=== PATIENT | male | born 1965 | race Caucasian/White ===

== ENCOUNTER → 2017-08-14 07:06 | Outpatient (CLI) | payer MEDICARE, SELFPAY ==
--- NOTE | 2017-08-14 07:40 | RAD_ITS ---
STUDY: X-RAY - ESOPHAGUS (BARIUM SWALLOW) WITH FLUOROSCOPY REASON FOR EXAM: Male, 51 years old. Proximal cervical pain following recent cervical fusion. TECHNIQUE: 25 view(s) of the esophagus were obtained following swallowing of barium. FLUOROSCOPY TIME (if supplied): (0:41) minutes/seconds COMPARISON: None. FINDINGS: There is no demonstrated esophageal foreign body. There is no demonstrated stricture or mucosal abnormality. Normal gastroesophageal junction, without a demonstrated hiatal hernia. The patient ingested a 12 mm tablet of barium without any difficulty. Normal visualized aortic arch and descending thoracic aorta. Normal visualized pulmonary parenchyma. Prior fusion of the lower cervical spine. RAD/Esophagus Only IMPRESSION: Normal plain film x-ray examination (barium swallow) of the esophagus. Electronically Signed: Aiden Santiago MD at 9:03 EST Tel [phone], Service support ,
== END ==
PROVIDERS: Family Provider Nurse Practitioner Adult Health; PCP Nurse Practitioner Adult Health; Visit Provider Otolaryngology
DX: R13.10 Dysphagia, unspecified (principal)
CPT/HCPCS: 74220

== ENCOUNTER 2017-10-31 06:04 | Day surgery (SDC) | payer MEDICARE, SELFPAY ==
[2017-10-31] VITALS (8 sets, daily range): BP systolic 97–112; BP diastolic 61–75; PULSE 76–94; RESP 16–20; TEMP 36.9–37.3; O2SAT 97–100; BMI 19.8
--- NOTE | 2017-10-31 07:57 | PCM.HP.STD ---
Problem List (1) Screening for colon cancer Status: Acute History of Present Illness Date of Admission: 10/31/17 The patient is a 52 year old M who presents for screening colonoscopy. Past Medical History Allergies amoxicillin trihydrate [From Augmentin] Allergy (Verified 03/01/16 19:09) Unknown potassium clavulanate [From Augmentin] Allergy (Verified 03/01/16 19:09) Unknown primidone Adverse Reaction (Verified 03/01/16 19:09) Other Home Medications: Ambulatory Orders Medication Instructions Recorded Albuterol Aerosols [Ventolin 2.5 mg INHALATION Q6H PRN PRN 09/18/13 Aerosols] Albuterol IH (ProAir) [Proair Hfa] 2 puff INHALATION Q6H PRN PRN 09/18/13 Baclofen [Lioresal] 10 mg PO TID 09/18/13 Budesonide/Formoterol 160/4.5 2 puff INHALATION BID 09/18/13 [Symbicort 160/4.5 Mcg Inhaler (SP)] Carbamazepine [Carbamazepine ER] 200 mg PO BID 03/01/16 Nitroglycerin [Nitrostat] 0.4 mg SUBLINGUAL PRN PRN 03/01/16 Diclofenac [Voltaren] 75 mg PO BIDCM 10/29/17 Duloxetine Hcl [Cymbalta] 60 mg PO DAILY 10/29/17 Fanapt 6 mg PO BID 10/29/17 Furosemide [Lasix] 20 mg PO DAILY 10/29/17 Potassium Citrate [Potassium 10 meq PO DAILY 10/29/17 Citrate ER] Spironolactone [Aldactone] 25 mg PO DAILY 10/29/17 Umeclidinium [place] [Incruse 1 puff IH DAILY 10/29/17 Ellipta] Zonisamide [Zonegran] 100 mg PO BID 10/29/17 Smoking Status: Current every day smoker Tobacco Use: Cigarettes - *Family History Maternal History Items: No pertinent history Review of Systems Cardiovascular: Reports: - - Patient does have an irregular heartbeat and follows up with Dr. Chaudhry Respiratory: Reports: - - Patient does experience some dyspnea and shortness of breath with 2 flights of stairs Gastrointestinal: Denies: Abdominal Pain, Constipation, Diarrhea, Hematemesis, Nausea, Melena, Vomiting VTE Information - Inpt Only VTE Present on Admission: No VTE Mechan Device Prophylaxis: None VTE Pharm Prophylaxis ordered?: No Reason prophylaxis not ordered:: Treatment Not Indicated Patient Problems: Active and Suspected Problems Screening for colon cancer (Acute) - Physical Exam Lungs: Clear to auscultation Cardiovascular: Regular rate, Regular Rhythm, No murmurs Abdomen: Bowel Sounds Present, Soft, Non Tender, Non-Distended Vital Signs Temp Pulse Resp BP Pulse Ox 99.2 F H 76 16 109/69 98 10/31/17 06:30 10/31/17 06:30 10/31/17 06:30 10/31/17 06:30 10/31/17 06:30 Oxygen Delivery Method Room Air Weight: 111 lb 12.39 oz Body Mass Index (BMI) 19.8 Assessment/Plan Active and Suspected Problems Screening for colon cancer (Acute) My plan is to perform a screening colonoscopy on the patient. Risk benefits have been reviewed with the patient at the time of the procedure and he agrees to proceed.
--- NOTE | 2017-10-31 08:00 | PCM.OPRPT ---
Problem List (1) Screening for colon cancer Status: Acute Report of Operation Date of Procedure: 10/31/17 Pre-Operative Diagnosis: z12.11 screening colonoscopy Post-Operative Diagnosis: Colonoscopy to splenic flexure Type of Anesthesia:: MAC Anesthesiologist: Aftab Silva Description of Procedure: Patient was brought into the endoscopy suite. Placed in the left lateral decubitus position. Was given graded anesthesia. Scope was inserted into the rectum and directed through the sigmoid colon, descending colon, to the splenic flexure. I was unable to get past the splenic fracture. I gave him 1 amp of glucagon I tried numerous position changes nevertheless I was unable to traverse the splenic flexure and into the transverse colon. As it appeared that I was bruising the splenic flexure I aborted the rest of the procedure. As I came out I got a good look at the descending colon and sigmoid colon and the rectum. No polyps are identified the mucosal all look normal. The scope was withdrawn digital rectal exam showed no masses within the anus and a smooth small prostate. Going to obtain a barium enema on him. - Admit VTE Documentation VTE Present on Admission: No VTE Mechan Device Prophylaxis: None VTE Pharm Prophylaxis ordered?: No Reason prophylaxis not ordered:: Treatment Not Indicated
--- NOTE | 2017-10-31 11:00 | RAD_ITS ---
STUDY: BARIUM ENEMA. REASON FOR EXAM: Male, 52 years old. Incomplete colonoscopy. FLUOROSCOPY TIME (if supplied): (0:40) minutes/seconds TECHNIQUE: A marketing content manager film was obtained. Following this, barium was introduced retrograde through the rectum. The entire colon was opacified. COMPARISON: None. FINDINGS: A marketing content manager film was obtained. No radiographic abnormality is seen. The entire colon was opacified. No mass lesion is seen. There is no evidence of obstruction. RAD/Barium Enema No Air Cont IMPRESSION: Unremarkable barium enema. Electronically Signed: Aiden Santiago MD at 12:51 EDT Tel [phone], Service support ,
== END 2017-10-31 10:41 | disposition home or self-care (01) ==
LOC: EN 06:05 → AC 06:05 → ACINP 11:14
PROVIDERS: Family Provider Nurse Practitioner Adult Health; PCP Nurse Practitioner Adult Health; Visit Provider Surgery
PROC: 0DJD8ZZ Inspection of Lower Intestinal Tract, Via Natural or Artificial Opening Endoscopic (ICD-10-PCS; CPT 45378; principal; 2017-10-31 07:25)
DX: Z12.11 Encounter for screening for malignant neoplasm of colon (principal); K63.89 Other specified diseases of intestine; I49.9 Cardiac arrhythmia, unspecified; J43.9 Emphysema, unspecified; F32.9 Major depressive disorder, single episode, unspecified; F60.3 Borderline personality disorder; F17.210 Nicotine dependence, cigarettes, uncomplicated; F12.90 Cannabis use, unspecified, uncomplicated; Z79.899 Other long term (current) drug therapy
CPT/HCPCS: 45330; 74270; J7120; J1610

== ENCOUNTER 2018-12-02 06:14 | Day surgery (SDC) | payer MEDICARE, SELFPAY ==
[2018-12-02 06:36] VITALS: BP 112/83; PULSE 83; RESP 18; TEMP 37; O2SAT 95; BMI 18.3
--- NOTE | 2018-12-02 08:00 | RAD_ITS ---
PROCEDURE: Right C4-C7 cervical block. DATE OF EXAMINATION: December 02, 2018. INDICATION: Male, 53 years old. Chronic neck pain. FLUOROSCOPY TIME (if supplied): (0:18) minutes/seconds. 4 images were obtained. Intraoperative fluoroscopic services provided for right C4-C7 cervical block. RAD/Cerv Spine 4 or 5 Views IMPRESSION: Intraoperative fluoroscopic services provided for right C4-C7 cervical block. Electronically Signed: Aiden Santiago, at 15:17 EDT , Service support ,
[2018-12-02] MEDS: MethylPREDNISolone Acetate 80 MG/ML Vial (08:04)
[2018-12-02] MEDS: Bupivacaine 0.25% 30 ML Vial (08:04)
[2018-12-02 08:25] VITALS: BP 105/72; BP 112/83; PULSE 83; RESP 18; TEMP 36.6; O2SAT 95
--- NOTE | 2018-12-02 12:39 | PCM.OPRPT ---
Problem List (1) Degeneration of cervical disc without myelopathy Status: Chronic (2) Spondylosis of cervical region without myelopathy or radiculopathy Status: Chronic Report of Operation Date of Procedure: 12/02/18 Pre-Operative Diagnosis: Cervical spondylosis, cervical degenerative disc disease, cervical facet arthropathy Post-Operative Diagnosis: Cervical spondylosis, cervical degenerative disc disease, cervical facet arthropathy Surgery/Procedure Performed:: Right-sided cervical facet steroid injection C4, C5, C6, C7 Description of Surgical Findings:: PROCEDURE: Right-sided cervical facet steroid injection C4, C5, C6, C7 PREOPERATIVE DIAGNOSES: Cervical spondylosis, cervical degenerative disc disease, and cervical facet arthropathy POSTOPERATIVE DIAGNOSES: Cervical spondylosis, cervical degenerative disc disease, and cervical facet arthropathy ANESTHESIA: Local COMPLICATIONS: None BLOOD LOSS: Minimal PROCEDURE IN DETAIL: History and physical today was reviewed. Risks and benefits of the procedure were explained. The patient understood, agreed to our procedure, and informed consent was obtained. IV inserted per routine protocol. The patient was taken to the operating room, placed in a prone position with a pillow positioned underneath the chest. The neck area was prepped and draped in a sterile fashion using iodine x3. Under fluoroscopy guidance, on AP view, C4 through C7 vertebral bodies were visualized. Skin and subcutaneous tissues were anesthetized with approximately 5 mL of 1% lidocaine using a 25-gauge regular needle. Under direct visualization with fluoroscopy at approximately 15-degree angle, starting on the right C4, ending on the right C7, passing through the C5-C6 using a 25-gauge 3 and half inch spinal needle the needle passed through the skin tip of the needle was maneuvering directed towards the epiphyseal junction of each corresponding vertebra once the tip of the knee is at the vicinity of the medial branch and contact with the bone the needle pulled approximately 2 mm of the bone after negative aspiration for blood or CSF and confirmation AP oblique as well as lateral view a total of 4 cc of preservative-free 0.25% Marcaine with 80 mg of Depo-Medrol were injected in divided doses between those 4 levels. The needles were then removed intact. The patient experienced no signs or symptoms of intrathecal, intravascular injection. The patient experienced no paraesthesia. The procedure was completed without any apparent difficulty, any complication. The patient appeared to tolerate well. Sensory as well as motor exam was unchanged from prior to procedure. ASSESSMENT AND PLAN: This is a 53-year-old Male with cervical spondylosis, cervical degenerative disc disease, and cervical facet arthropathy, status post right-sided cervical facet steroid injection C4-C7. The patient will continue his current medications. The patient will follow up in approximately 2 weeks fo reevaluation.
== END 2018-12-02 08:32 | disposition home or self-care (01) ==
LOC: SDC 06:16 → AC 06:17
PROVIDERS: Family Provider Nurse Practitioner Adult Health; PCP Nurse Practitioner Adult Health; Referring Provider Anesthesiology Pain Medicine; Visit Provider Anesthesiology Pain Medicine
PROC: 3E0U3BZ Introduction of Anesthetic Agent into Joints, Percutaneous Approach (ICD-10-PCS; CPT 64490; principal; 2018-12-02 07:55)
DX: M47.812 Spondylosis without myelopathy or radiculopathy, cervical region (principal); M50.30 Other cervical disc degeneration, unspecified cervical region; M46.82 Other specified inflammatory spondylopathies, cervical region; J43.9 Emphysema, unspecified; F17.200 Nicotine dependence, unspecified, uncomplicated; Z79.891 Long term (current) use of opiate analgesic; Z79.899 Other long term (current) drug therapy
CPT/HCPCS: 64491; 64492; 64490; 72050; 72110; J7120

== ENCOUNTER → 2018-12-23 09:45 | Outpatient (CLI) | payer MEDICARE, SELFPAY ==
[2018-12-06 08:52] VITALS: BMI 19.1
--- NOTE | 2018-12-23 15:26 | PFTCOMP ---
COMPLETE PULMONARY FUNCTION TEST INTERPRETATION Brief HPI: Patient is a 53 year old male, currently under the care of myself, who presents to [facility] for complete pulmonary function tests secondary to diagnosis of dyspnea. Respiratory therapist reports good effort and reproducible results. Interpretation: Forced expiration spirometry shows a very severe large airways obstructive ventilatory defect with an FEV1 of 37% predicted. There is a significant bronchodilator response in FVC by strict ATS criteria. Spirograms are of good quality and plateau slowly, indicating slowly emptying areas of the lungs. The respiratory flow volume loop shows decreased expiratory flow rates at all lung volumes consistent with airway obstruction. Lung volumes by body plethysmography show an elevated total lung capacity at 7.91 L, 142% predicted. FRC and RV are elevated out of proportion. Lung volume measurements are consistent with hyperinflation and air-trapping. Diffusion capacity by carbon monoxide is decreased at 39% predicted. The airway resistance is elevated. No previous pulmonary function tests were available for review. Impression: Partially reversible very severe large airways obstructive ventilatory defect resulting in air trapping with hyperinflation and a symmetric reduction diffusing capacity, and a pattern consistent with advanced COPD.
== END ==
PROVIDERS: Family Provider Internal Medicine; PCP Internal Medicine; Referring Provider Internal Medicine Critical Care Medicine; Visit Provider Internal Medicine Critical Care Medicine
DX: Z72.0 Tobacco use (principal)
CPT/HCPCS: 94060; 94726; 94729

== ENCOUNTER → 2019-01-29 08:39 | Outpatient (CLI) | payer MEDICARE, SELFPAY ==
[2018-12-06 08:52] VITALS: BMI 19.1
[2019-01-06 10:19] VITALS: BMI 20.7
[2019-01-29 09:51] VITALS: PULSE 100; PULSE 74; PULSE 78; PULSE 81; PULSE 88; PULSE 89; PULSE 92; PULSE 98; O2SAT 92; O2SAT 93; O2SAT 94; O2SAT 98
--- NOTE | 2019-01-29 13:28 | WT_ITS ---
PSN 6 Minute Walk Test - 6 Minute Walk Test 6 Minute Walk Test: 6 Minute Walk Test PSN:6-Minute Walk Test Start: 01/29/19 09:51 Freq: Status: Active Protocol: [id number].[id number] Document 01/29/19 09:51 [facility] (Rec: 01/29/19 09:55 [facility] [id number]) 6 Minute Walk Test Date Performed 01/29/19 Time Performed 09:15 Height 5 ft 5 in Weight: 102 lb Weight in Pounds 102.[address]: Willy Barragan Assistive device used: None Pre-test Oxygen Delivery Method Room Air Pulse Ox (%) 92 Pulse Rate (60-100 beats/min) 74 Dyspnea Jacqueline Scale (0-10) 4 Number of Rests Taken 0 Reported Symptoms Increased Work of Breathing 1st minute Oxygen Delivery Method Room Air Pulse Ox (%) 94 Pulse Rate (60-100 beats/min) 81 Dyspnea Jacqueline Scale (0-10) 4 Number of Rests Taken 0 Reported Symptoms Increased Work of Breathing 2nd minute Oxygen Delivery Method Room Air Pulse Ox (%) 93 Pulse Rate (60-100 beats/min) 89 Dyspnea Jacqueline Scale (0-10) 5 Number of Rests Taken 0 Reported Symptoms Increased Work of Breathing 3rd minute Oxygen Delivery Method Room Air Pulse Ox (%) 94 Pulse Rate (60-100 beats/min) 92 Dyspnea Jacqueline Scale (0-10) 5 Number of Rests Taken 0 Reported Symptoms Increased Work of Breathing 4th minute Oxygen Delivery Method Room Air Pulse Ox (%) 98 Pulse Rate (60-100 beats/min) 100 Dyspnea Jacqueline Scale (0-10) 5 Number of Rests Taken 0 Reported Symptoms Increased Work of Breathing 5th minute Oxygen Delivery Method Room Air Pulse Ox (%) 93 Pulse Rate (60-100 beats/min) 98 Dyspnea Jacqueline Scale (0-10) 5 Number of Rests Taken 0 Reported Symptoms Increased Work of Breathing 6th minute Oxygen Delivery Method Room Air Pulse Ox (%) 94 Pulse Rate (60-100 beats/min) 88 Dyspnea Jacqueline Scale (0-10) 6 Number of Rests Taken 0 Reported Symptoms Increased Work of Breathing Post-test Oxygen Delivery Method Room Air Pulse Ox (%) 94 Pulse Rate (60-100 beats/min) 78 Dyspnea Jacqueline Scale (0-10) 4 Number of Rests Taken 0 Reported Symptoms Increased Work of Breathing Full Laps Walked 12 Partial Lap, Number of Tiles Walked 14 Total Distance Walked (ft) 722 - Interpretation Interpretation: The patient ambulated 722 feet over the course of 6 minutes beginning on room air without assistive devices or breaks. Pretesting oxygen saturation was noted to be 92% on room air. With ambulation, the sarath oxygen saturation was 93%. There was no significant exertional oxygen desaturation. - Recommendations Recommendations: There is no indication for the use of supplemental oxygen at this time.
== END ==
PROVIDERS: Family Provider Internal Medicine; PCP Internal Medicine; Referring Provider Internal Medicine Critical Care Medicine; Visit Provider Internal Medicine Critical Care Medicine
DX: J44.9 Chronic obstructive pulmonary disease, unspecified (principal)
CPT/HCPCS: 94618

== ENCOUNTER → 2019-02-04 11:29 | Outpatient (CLI) | payer MEDICARE, SELFPAY ==
[2019-02-04 10:56] VITALS: BMI 20.7
[2019-02-04 12:21] LABS: Hematocrit 43.3 % (40-54); Hemoglobin 14.7 g/dL (13.0-16.5); Mean Corp Hgb Conc 33.9 g/dL (32-36); Mean Corpuscular Hgb 32.4 pg (27.0-32.0); Mean Corpuscular Volume 95.4 fL (80-94); Mean Platelet Vol. 10.1 fl (6.2-12.0); Platelet Count 261 K/mm3 (150-450); RBC Distribution Width CV 13.3 % (11.6-14.6); RBC Distribution Width SD 46.8 fl (35.1-43.9); Red Blood Count 4.54 M/mm3 (4.6-6.2); White Blood Count 5.6 K/mm3 (4.4-11.0)
[2019-02-04 12:50] LABS: ALB/GLOB Ratio 1.1 RATIO (0.9-2.4); AST(SGOT) 14 U/L (15-37); Alanine Aminotransfer ALT/SGPT 22 U/L (16-61); Albumin, Serum 3.9 g/dL (3.2-5.0); Alkaline Phosphatase 90 U/L (45-117); Anion Gap 5 (5-15); BUN 9 mg/dL (7-18); BUN/Creat Ratio 9.5 RATIO (10-20); Calcium,Total 8.6 mg/dL (8.5-10.1); Chloride 107 mmol/L (98-107); Cholesterol 152 mg/dL (200); Creatinine, Serum 0.95 mg/dL (0.70-1.30); EST Glomerular Filtration Rate 89 mL/min (>60); Est Glom Filt Rate - Afr Amer 107 mL/min (>60); Globulin 3.5 g/dL (2.2-4.2); Glucose 91 mg/dL (74-106); High Density Lipoprotein 73 mg/dL; Potassium 3.7 mmol/L (3.5-5.1); Protein, Total 7.4 g/dL (6.4-8.2); Sodium Level 137 mmol/L (136-145); Thyroid Stim Hormone (TSH) 0.99 uIU/mL (0.358-3.74); Triglycerides 61 mg/dL; Very Low Density Lipoprotein 12 mg/dL (5-40)
== END ==
PROVIDERS: Nurse Practitioner Family; Family Provider Internal Medicine; PCP Internal Medicine; Visit Provider Internal Medicine
DX: J44.9 Chronic obstructive pulmonary disease, unspecified (principal); F32.9 Major depressive disorder, single episode, unspecified; F41.9 Anxiety disorder, unspecified; E78.5 Hyperlipidemia, unspecified; Z13.220 Encounter for screening for lipoid disorders
CPT/HCPCS: 36415; 80053; 80061; 84443; 85027

== ENCOUNTER → 2019-04-04 08:02 | Outpatient (CLI) | payer MEDICARE, SELFPAY ==
[2019-03-13 10:18] VITALS: BMI 17.9
--- NOTE | 2019-04-04 08:04 | CT_ITS ---
STUDY: CT CHEST WITHOUT CONTRAST REASON FOR EXAM: Male, 53 years old. Weight loss and shortness of breath. Emphysema. History of smoking. RADIATION DOSAGE (If Supplied By Facility): CTDIvol = ( 6.81 ) mGy, DLP = ( 277.57 ) mGycm TECHNIQUE: Transaxial imaging was performed without the administration of intravenous contrast material. Individualized dose optimization techniques were used for this CT. COMPARISON: May 04, 2017 FINDINGS: Diffuse emphysematous change is identified appearing similar to the prior study. There is mild bibasilar compressive atelectasis. There is no demonstrated pleural abnormality. Normal heart and pericardium. Normal mediastinum. Normal hilar regions. Normal unenhanced pulmonary arteries. Normal aorta arch and descending thoracic aorta. Normal osseous structures. There is no demonstrated abnormality of the visualized upper abdomen. CT/Chest without Contrast IMPRESSION: Diffuse emphysematous change and mild bibasilar compressive atelectasis. No significant interval changes. Electronically Signed: Lázaro Barrera, at 9:06 EDT Tel , Service support ,
== END ==
PROVIDERS: Family Provider Internal Medicine; PCP Internal Medicine; Referring Provider Internal Medicine Critical Care Medicine; Visit Provider Internal Medicine Critical Care Medicine
DX: J43.2 Centrilobular emphysema (principal); I27.21 Secondary pulmonary arterial hypertension; R63.4 Abnormal weight loss; R06.02 Shortness of breath; Z87.891 Personal history of nicotine dependence
CPT/HCPCS: 71250

== ENCOUNTER → 2019-05-26 11:03 | Outpatient (CLI) | payer MEDICARE, SELFPAY ==
[2019-03-13 10:18] VITALS: BMI 17.9
--- NOTE | 2019-05-26 11:34 | CT_ITS ---
STUDY: CT CERVICAL SPINE WITHOUT CONTRAST REASON FOR EXAM: Male, 53 years old. Spinal stenosis, bilateral arm numbness/tingling, prior neck surgery x 2.. RADIATION DOSAGE (If Supplied By Facility): CTDIvol = ( 14.27 ) mGy, DLP = ( 271.68 ) mGycm TECHNIQUE: High resolution transaxial imaging was performed without contrast material. Sagittal and coronal images were reconstructed. Individualized dose optimization techniques were used for this CT. COMPARISON: 05/26/2019 MRI FINDINGS: Normal craniovertebral junction. Normal anterior atlantoaxial articulation. Normal odontoid process. There is straightening of the normal cervical lordosis. C2-3: Normal endplates. Normal disc height and morphology. Normal central canal and intervertebral neuroforamina. C3-4: Normal endplates. Normal disc height and morphology. Normal central canal and intervertebral neuroforamina. C4-5: There is minimal disc space narrowing and endplate spondylosis. There is no significant disc herniation, central canal or foraminal stenosis. C5-6: There is anterior fusion. There is disc spacer with subsidence without demonstrated osseous fusion. There is severe disc space narrowing and endplate spondylosis. There is mild disc osteophyte complex without significant central canal stenosis. Uncovertebral arthropathy with moderate right and moderate left foraminal stenosis. C6-7: There is anterior fusion. There is disc spacer with subsidence. There is left lateral interbody osseous fusion. There is severe disc space narrowing and endplate spondylosis. There is minimal disc osteophyte complex without significant central canal stenosis. Uncovertebral arthropathy with mild right and mild left foraminal stenosis. C7-T1: There is mild disc space narrowing and endplate spondylosis. There is no significant disc herniation, central canal or foraminal stenosis. Normal visualized soft tissue structures. CT/Spine Cervical without Contras IMPRESSION: C5/C6: Moderate right and moderate left foraminal stenosis. C5-C7 anterior fusion, disc spacers with subsidence. Electronically Signed: David Haines MD at 9:09 EST Tel , Service support ,
--- NOTE | 2019-05-26 11:48 | MRI_ITS ---
STUDY: MRI CERVICAL SPINE WITHOUT CONTRAST REASON FOR EXAM: Male, 53 years old. c/o ongoing neck pain, slipped vertebrae superior to sx site, h/o prior fusion 3 yrs ago. TECHNIQUE: Standardized fat and water weighted pulse sequences were obtained in the sagittal and axial planes. COMPARISON: 05/26/2019 CT FINDINGS: Normal foramen magnum and brainstem-cervical cord junction. Normal craniovertebral junction. Normal anterior atlantoaxial articulation. Normal odontoid process. There is straightening of the normal cervical lordosis. C2-3: Normal endplates. Normal disc height, signal and morphology. Normal central canal and intervertebral neural foramina. C3-4: There is minimal disc space narrowing and endplate spondylosis. There is no significant disc herniation, central canal or foraminal stenosis. C4-5: There is minimal disc space narrowing and endplate spondylosis. There is no significant disc herniation, central canal or foraminal stenosis. C5-6: There is anterior fusion. Mild disc osteophyte complex with mild central canal stenosis. Uncovertebral arthropathy with moderate right and moderate left foraminal stenosis C6-7: There is anterior fusion. Minimal disc osteophyte complex without significant central canal stenosis. Uncovertebral arthropathy with mild right and mild left foraminal stenosis C7-T1: There is minimal disc space narrowing and endplate spondylosis. There is no significant disc herniation, central canal or foraminal stenosis. Normal cervical cord. Normal visualized soft tissue structures. MRI/Spine Cervical (Routine) IMPRESSION: C5/C6: Moderate right and moderate left foraminal stenosis. C5-C7: Anterior fusion. Electronically Signed: David Haines MD at 9:10 EST Tel , Service support ,
== END ==
PROVIDERS: Family Provider Internal Medicine; PCP Internal Medicine; Referring Provider Neurological Surgery; Visit Provider Neurological Surgery
DX: M48.02 Spinal stenosis, cervical region (principal); M54.12 Radiculopathy, cervical region
CPT/HCPCS: 72125; 72141

== ENCOUNTER 2019-06-16 16:00 | Outpatient (RCR) | payer MEDICARE, SELFPAY ==
[2019-03-13 10:18] VITALS: BMI 17.9
--- NOTE | 2019-06-03 10:57 | HP.PTEVAL ---
Patient's Visit Information KEENA GIFFORD is a 53 year old M referred to Physical Therapy by Gisell Lizarraga MD with a diagnosis of CERVICALALGIA,RADICULOPATHY OF CERVICAL ,SPINAL STENOSIS OF CERVICAL. Date of Evaluation: 06/03/19 Physical Therapist: James Poole, PT, Cert MDT, OCS - Visit Plan Frequency: 2x /Week Duration: 4 Weeks Plan: PT INTERVENTIONS MODALTIES ,CERVICAL /POSTURAL EX'S - Subjective Findings: This 53 y/o male presnets to physical therapy cervicval pain. Patient underwent s/p cervical fusion 3 years ago. Patient has increase pain in cervical pain and and radicular symptoms RUE> LUE.. Seen Neurogen did and MRI foraminal stenosis /CATSCAN,plan for EMG.Patient has had injections which hasnt helped. Patient dizziness/CHOI.Aggravating factors turning cervical spine ,looking up/down,lifting with arms,sitting. Patient pain affects sleeping. Allevating factors none. Patient on Robaxn. Patient affects sleeping. Patient c/o parthesia/tingling in hands. Patient pain affects ADL's and housework taskls. Patient symptoms affects QOL. SOCIAL: . VOCATION:disablity - Pain Bilateral Neck Pain Intensity (Out of 10): 10 Pain Intensity Range: 10 Bilateral Shoulder Pain Intensity (Out of 10): 8 Pain Intensity Range: 10 - Objective POSTURE: mild foward posture. NEURO: c/o parathesia/tingling arms,reflexes C5-6-7 1/2. PALPATION: TENDER UT/LEVATORS. AROM: BUE WFL. MMT: 4/5 ,EXCEPT SHOULDERS 4-/5. CERVICAL ROM: flexion min loss,extension mod loss,lateral flexion/rotation mod/severe loss - Special Tests C/S Radiculapathy - Left Upper limb tension test: Negative C/S Radiculapathy - Right Upper limb tension test: Negative Sharp Ata: Negative Vertebral Artery Test: Negative Alar Ligament Test: Negative - Goals Goal 1:: Patient to be Independant with HEP Goal Time Frame: 4-6 Weeks Goal 2:: Patient decrease cervical pain by 40% or > to improve function and QOL. Goal Time Frame: 4-6 Weeks Goal 3:: Patient to improve posture for ADL'S Goal Time Frame: 4-6 Weeks Goal 4:: Patient to improve cervical ROM for function of recovery. Goal Time Frame: 4-6 Weeks Goal 5:: Patient to improve neck owestry score by 5 points or > to improve QOL. Goal Time Frame: 4-6 Weeks - Rehabilitation Potential Physical Therapy Diagnosis: Patient has cervical pain with h/o cervical fusion with poor ROM,strength impairs ADL's and housework tasks thus benifit from skilled PT Rehabilitation Potential: Good - Anticipated Interventions Patient/Client Instruction: Educate patient on: Condition, Plan of Care For the Purpose of:: To decrease pain, To increase ROM, To improve muscle performance and motor function, To improve ability to perform ADL's, To increase tolerance to activity/condition/position, To improve ability of physical actions for home/community/work/leisure, To improve health of tissue, To decrease soft tissue restriction, To increase flexibility/ROM, To improve ability to perform tasks related to life management Therapeutic Exercise to Include: Strength training, Body mechanics, Postural training, Flexibilty training For the Purpose of:: To decrease pain, To increase ROM, To improve muscle performance and motor function, To improve ability to perform ADL's, To improve performance and independence with ADL's, To improve health of tissue, To decrease soft tissue restriction, To increase flexibility/ROM, To improve ability to perform tasks related to life management TENS: Yes IF ES: Yes Cryotherapy (ice pack, ice massage): Yes Thermo therapy (hot pack): Yes Ultrasound (thermal/non thermal): Yes For the Purpose of:: To decrease pain, To increase ROM, To improve ability to perform ADL's, To increase tolerance to activity/condition/position, To improve health of tissue, To decrease soft tissue restriction Thank you for the opportunity to evaluate your patient. For Medicare and Medicare HMO plans, please review the plan of care and approve it. It will need to be FAXED BACK to us at [phone] for Medicare purposes. For Medicare only, by signing this I certify the plan of care. Please let me know if there are questions or concerns regarding this plan of care. Physician Signature: Date:
--- NOTE | 2019-09-05 09:37 | HP.PT.NRP ---
KEENA GIFFORD was seen in my office for initial evaluation on 06/03/19. The following Plan of Care was established for this patient: Initial Frequency: 2x /Week Initial Duration: 4 Weeks Patient/Client Instruction: Educate patient on: Condition, Plan of Care For the Purpose of:: To decrease pain, To increase ROM, To improve muscle performance and motor function, To improve ability to perform ADL's, To increase tolerance to activity/condition/position, To improve ability of physical actions for home/community/work/leisure, To improve health of tissue, To decrease soft tissue restriction, To increase flexibility/ROM, To improve ability to perform tasks related to life management Therapeutic Exercise to Include: Strength training, Body mechanics, Postural training, Flexibilty training For the Purpose of:: To decrease pain, To increase ROM, To improve muscle performance and motor function, To improve ability to perform ADL's, To improve performance and independence with ADL's, To improve health of tissue, To decrease soft tissue restriction, To increase flexibility/ROM, To improve ability to perform tasks related to life management TENS: Yes IF ES: Yes Cryotherapy (ice pack, ice massage): Yes Thermo therapy (hot pack): Yes Ultrasound (thermal/non thermal): Yes For the Purpose of:: To decrease pain, To increase ROM, To improve ability to perform ADL's, To increase tolerance to activity/condition/position, To improve health of tissue, To decrease soft tissue restriction This patient was last seen in our office 06/16/19. Pertinent comments regarding their Physical therapy will appear below: Patient seen for PT for cervical pain focusing on modalties. At this point I will be discontinuing this patient from physical therapy. I would be happy to see this patient again in the future if found appropriate by the physician. Thank you! James Poole, PT, Cert MDT, OCS
== END 2019-06-16 19:00 | disposition home or self-care (01) ==
LOC: PT 16:00
PROVIDERS: Family Provider Internal Medicine; PCP Internal Medicine; Referring Provider Neurological Surgery; Visit Provider Neurological Surgery
DX: M54.2 Cervicalgia (principal); M48.02 Spinal stenosis, cervical region
CPT/HCPCS: 97014; 97035; 97162; G0283

== ENCOUNTER → 2019-06-23 10:40 | Outpatient (CLI) | payer MEDICARE, SELFPAY ==
[2019-06-09 07:53] VITALS: BMI 18.3
--- NOTE | 2019-06-23 15:01 | STRESSREP ---
Stress Test Report Pharmacologic myocardial perfusion stress test. 53-year-old man with a history of chest pain. Medications: Ventolin, pro-air, Tegretol. Resting EKG demonstrates normal sinus rhythm with a rate of 81 bpm normal intervals are noted resting blood pressures 180/60 mmHg. 0.4 mg of regadenoson was infused per usual protocol followed by rapid venous saline flush injection continuous EKG monitoring was performed. The maximum heart rate attained was 112 bpm which was 66% of maximum predicted heart rate the maximum workload was 1 metabolic equivalent. At rest there were no ST or T wave changes noted suggest abnormal flow reserve at peak infusion nonspecific ST-T wave changes were noted. No clinical angina was noted. Myocardial perfusion protocol. 11.1 mCi of technetium 99m sestamibi was injected at rest. 0.4 mg of regadenoson was infused per usual protocol peak infusion 33.3 mCi of technetium 99m sestamibi was injected stress images were obtained stress and rest images were reconstructed and compared in the short axis vertical long horizontal long axis. Gated images were also obtained Perfusion SPECT analysis: Review of the stress images demonstrate normal uptake of tracer noted in all areas of myocardium the resting images similar demonstrate normal uptake of tracer noted in all areas of myocardium. No reversibility is noted just ischemia no previous infarct is noted per Gated SPECT analysis: The gated ejection fraction is noted to be 72%. Conclusion: Normal pharmacologic myocardial perfusion stress test. Preserved ejection fraction.
== END ==
PROVIDERS: Family Provider Internal Medicine; PCP Internal Medicine; Referring Provider Nurse Practitioner Family; Visit Provider Nurse Practitioner Family
DX: R07.9 Chest pain, unspecified (principal)
CPT/HCPCS: 78452; 93017; A9500; A4216; J2785

== ENCOUNTER → 2019-07-16 07:46 | Outpatient (CLI) | payer MEDICARE, MEDICAID, SELFPAY ==
[2019-03-13 10:18] VITALS: BMI 17.9
[2019-06-09 07:53] VITALS: BMI 18.3
--- NOTE | 2019-07-16 09:28 | RAD_ITS ---
STUDY: X-RAY - CERVICAL SPINE REASON FOR EXAM: Male, 53 years old. NECK PAIN. PLATE PLACED IN NECK IN 2017. TECHNIQUE: 4 view(s) of the cervical spine were obtained. COMPARISON: None FINDINGS: Normal anterior atlantoaxial articulation. Normal odontoid process. There is straightening of the normal cervical lordosis. The patient is status post anterior fusion at the C5-C6 and C6-C7 levels. Disc space narrowing at the C4-C5, C5-C6 and C6-C7 levels. Normal visualized intervertebral neuroforamina. The soft tissue structures are unremarkable. RAD/Cerv Spine 4 or 5 Views IMPRESSION: Status post anterior fusion at the C5-C6 and C6-C7 levels with disc space narrowing. Electronically Signed: Aiden Santiago, at 15:54 EST , Service support ,
--- NOTE | 2019-07-16 13:21 | NEURO ---
NCS and/or EMG Patient Report Ordering Doctor: Gisell Lizarraga DATE OF SERVICE: 07/16/19 Ivan Teixeira is a 53 year old male who presents for electrodiagnostic testing of the upper limbs. He reports numbness and tingling in both hands. Electrodiagnostic findings: The left median motor nerve demonstrates prolonged distal latency with normal amplitude and conduction velocity. Normal right median motor response. Normal ulnar motor response bilaterally. Normal median ulnar F waves. Prolonged median sensory latency at the wrist bilaterally. On needle EMG, all muscles tested in the upper limb showed no evidence of denervation with normal motor unit action potentials. Electrodiagnostic assessment: This is an abnormal study in the upper limbs 1. Electrodiagnostic findings demonstrate bilateral median mononeuropathy. This is consistent with a moderate left carpal tunnel syndrome and a mild right carpal tunnel syndrome. 2. No electrodiagnostic evidence for cervical radiculopathy. If there are any further questions, please not hesitate to contact me.
== END ==
PROVIDERS: Family Provider Internal Medicine; PCP Internal Medicine; Referring Provider Neurological Surgery; Visit Provider Neurological Surgery
DX: M54.2 Cervicalgia (principal); M54.12 Radiculopathy, cervical region
CPT/HCPCS: 72050; 95886; 95912

== ENCOUNTER → 2019-09-09 09:33 | Outpatient (CLI) | payer MEDICARE, MEDICAID, SELFPAY ==
[2019-06-09 07:53] VITALS: BMI 18.3
--- NOTE | 2019-09-10 08:07 | PFT ---
INTRODUCTION: The patient is a 53-year-old male that presents for pulmonary function studies secondary to a diagnosis of COPD. Respiratory therapy reports good patient effort. Bronchodilators were used during testing. INTERPRETATION: Forced expiration spirometry demonstrates the presence of a very severe large airways obstructive ventilatory defect. There was a significant response to aerosolized bronchodilators noted based upon change in FVC. Spirograms are of fair quality and do not plateau indicating slow emptying of the lungs. Body plethysmography was performed and reveals an elevated TLC and RV, indicative of underlying hyperinflation and air trapping. Diffusing capacity by single breath CO is significantly reduced at 39% of predicted. When compared to previous pulmonary function studies from December 2018, there has been a 17% reduction in FEV1. IMPRESSION: Partially reversible very severe large airways obstructive ventilatory defect with associated hyperinflation, air trapping and symmetric reduction in diffusing capacity. There has been worsening in the patient's FEV1 since 2018, as noted above.
== END ==
PROVIDERS: Family Provider Internal Medicine; PCP Internal Medicine; Referring Provider Nurse Practitioner Acute Care; Visit Provider Nurse Practitioner Acute Care
DX: J44.9 Chronic obstructive pulmonary disease, unspecified (principal)
CPT/HCPCS: 94060; 94726; 94729

== ENCOUNTER → 2019-10-17 12:25 | Outpatient (CLI) | payer MEDICARE, MEDICAID, SELFPAY ==
[2019-06-09 07:53] VITALS: BMI 18.3
[2019-09-23 06:16] VITALS: BMI 18.3
[2019-10-17 13:05] VITALS: PULSE 100; PULSE 106; PULSE 109; PULSE 94; PULSE 95; PULSE 98; O2SAT 86; O2SAT 93; O2SAT 94; O2SAT 95; O2SAT 96; O2SAT 97
--- NOTE | 2019-10-17 13:09 | CPS ---
PATIENT BEGAN TESTING ON ROOM AIR. 1 REST BREAK TAKEN D/T INCREASED SOB AND DECREASED SPO2 TO 86%RA SO OXYGEN APPLIED AT 2LPM. REMAINDER OF WALK TEST DONE ON 2LPM. CONTACTED VI[facility] AND [facility]. PT LEFT ON ROOM AIR AND AWARE [facility] WILL BE CONTACTING HIM FOR SETUP. FAXED RESULTS TO [facility]OTH [facility].
--- NOTE | 2019-10-17 16:09 | PCM.PSN.6M ---
PSN 6 Minute Walk Test - 6 Minute Walk Test 6 Minute Walk Test: 6 Minute Walk Test PSN:6-Minute Walk Test Start: 10/17/19 13:05 Freq: Status: Active Protocol: RESP.6MINW Document 10/17/19 13:05 [facility] (Rec: 10/17/19 13:12 [facility] [id number]) 6 Minute Walk Test Date Performed 10/17/19 Time Performed 12:30 Height 5 ft 5 in Weight: 49.895 kg Weight in Pounds 110.[address]: Edna Umanzor Assistive device used: None Pre-test Oxygen Delivery Method Room Air Pulse Ox (%) 96 Pulse Rate (60-100 beats/min) 94 Dyspnea Jacqueline Scale (0-10) 3 Reported Symptoms Increased Work of Breathing 1st minute Oxygen Delivery Method Room Air Pulse Ox (%) 95 Pulse Rate (60-100 beats/min) 106 H Dyspnea Jacqueline Scale (0-10) 4 Number of Rests Taken 0 Reported Symptoms Increased Work of Breathing 2nd minute Oxygen Delivery Method Room Air Pulse Ox (%) 86 Pulse Rate (60-100 beats/min) 109 H Dyspnea Jacqueline Scale (0-10) 6 Number of Rests Taken 1 Reported Symptoms Increased Work of Breathing 3rd minute Oxygen Flow Rate (L/min) (L/min) 2 Oxygen Delivery Method Nasal Cannula Pulse Ox (%) 95 Pulse Rate (60-100 beats/min) 100 Dyspnea Jacqueline Scale (0-10) 3 Number of Rests Taken 0 Reported Symptoms Increased Work of Breathing 4th minute Oxygen Flow Rate (L/min) (L/min) 2 Oxygen Delivery Method Nasal Cannula Pulse Ox (%) 94 Pulse Rate (60-100 beats/min) 95 Dyspnea Jacqueline Scale (0-10) 3 Number of Rests Taken 0 Reported Symptoms Increased Work of Breathing 5th minute Oxygen Flow Rate (L/min) (L/min) 2 Oxygen Delivery Method Nasal Cannula Pulse Ox (%) 94 Pulse Rate (60-100 beats/min) 98 Dyspnea Jacqueline Scale (0-10) 4 Number of Rests Taken 0 Reported Symptoms Increased Work of Breathing 6th minute Oxygen Flow Rate (L/min) (L/min) 2 Oxygen Delivery Method Nasal Cannula Pulse Ox (%) 93 Pulse Rate (60-100 beats/min) 100 Dyspnea Jacqueline Scale (0-10) 4 Number of Rests Taken 0 Reported Symptoms Increased Work of Breathing Post-test Oxygen Delivery Method Room Air Pulse Ox (%) 97 Pulse Rate (60-100 beats/min) 95 Dyspnea Jacqueline Scale (0-10) 3 Reported Symptoms Increased Work of Breathing Full Laps Walked 13 Partial Lap, Number of Tiles Walked 17 Total Distance Walked (ft) 784 10/17/19 13:09 Cardiopulmonary Services by Viviane Mejia PATIENT BEGAN TESTING ON ROOM AIR. 1 REST BREAK TAKEN D/T INCREASED SOB AND DECREASED SPO2 TO 86%RA SO OXYGEN APPLIED AT 2LPM. REMAINDER OF WALK TEST DONE ON 2LPM. CONTACTED [employer] OFFICER.[facility] AND [facility]. PT LEFT ON ROOM AIR AND AWARE [facility] WILL BE CONTACTING HIM FOR SETUP. FAXED RESULTS TO [facility]OTH [facility]. Initialized on 10/17/19 13:09 - END OF NOTE - Interpretation Interpretation: The patient was noted to be 96% on room air, but desaturated to 86% in the second minute of ambulation. Patient was able to maintain saturations for the remainder of the walk on 2 L/min. In total, the patient traveled 784 feet over the course of 6 minutes with one break and no assistive devices. These findings are consistent with a respiratory limitation exercise tolerance. - Recommendations Recommendations: The patient requires no supplemental oxygen at rest, but should be using 2 L nasal cannula with any exertion.
== END ==
PROVIDERS: Family Provider Internal Medicine; PCP Internal Medicine; Referring Provider Nurse Practitioner Acute Care; Visit Provider Nurse Practitioner Acute Care
DX: J44.9 Chronic obstructive pulmonary disease, unspecified (principal)
CPT/HCPCS: 94618

== ENCOUNTER → 2020-02-09 15:44 | Outpatient (CLI) | payer MEDICARE, SELFPAY ==
[2020-02-09 14:26] VITALS: BMI 18.6
[2020-02-09 17:05] LABS: Absolute Lymphocyte Count 2.12 X10^3/uL (0.83-4.51); Absolute Neutrophil Count 2.7 X10^3/uL (2.0-7.7); Basophil% 1.8 % (0-1); Eosinophil# 0.25 X10^3/uL; Eosinophils% 4.4 % (0-5); Hematocrit 43.5 % (40-54); Hemoglobin 14.2 g/dL (13.0-16.5); Lymphocyte # 2.12 X10^3/ul (4.0); Lymphocyte % 37.4 % (19-41); Mean Corp Hgb Conc 32.6 g/dL (32-36); Mean Corpuscular Hgb 31.6 pg (27.0-32.0); Mean Corpuscular Volume 96.9 fL (80-94); Mean Platelet Vol. 10.2 fl (6.2-12.0); Monocyte% 8.8 % (0-10); NRBC Flagged by Analyzer 0 % (0-5); Neutrophil # 2.66 X10^3/uL (2.7-7.7); Neutrophil % 46.9 % (47-70); Platelet Count 304 K/mm3 (150-450); RBC Distribution Width CV 12.8 % (11.6-14.6); RBC Distribution Width SD 45.6 fl (35.1-43.9); Red Blood Count 4.49 M/mm3 (4.6-6.2); White Blood Count 5.7 K/mm3 (4.4-11.0)
[2020-02-09 17:38] LABS: ALB/GLOB Ratio 1.2 RATIO (0.9-2.4); AST(SGOT) 12 U/L (15-37); Alanine Aminotransfer ALT/SGPT 22 U/L (16-61); Albumin, Serum 4.3 g/dL (3.2-5.0); Alkaline Phosphatase 81 U/L (45-117); Anion Gap 3 (5-15); BUN 16 mg/dL (7-18); BUN/Creat Ratio 16.4 RATIO (10-20); Calcium,Total 8.7 mg/dL (8.5-10.1); Chloride 106 mmol/L (98-107); Cholesterol 193 mg/dL (200); Creatinine, Serum 0.98 mg/dL (0.70-1.30); EST Glomerular Filtration Rate 85 mL/min (>60); Est Glom Filt Rate - Afr Amer 103 mL/min (>60); Globulin 3.5 g/dL (2.2-4.2); Glucose 78 mg/dL (74-106); High Density Lipoprotein 79 mg/dL; Potassium 3.9 mmol/L (3.5-5.1); Protein, Total 7.8 g/dL (6.4-8.2); Sodium Level 137 mmol/L (136-145); Triglycerides 62 mg/dL; Very Low Density Lipoprotein 12 mg/dL (5-40)
== END ==
PROVIDERS: PCP Internal Medicine; Visit Provider Internal Medicine
DX: J44.9 Chronic obstructive pulmonary disease, unspecified (principal); I25.10 Atherosclerotic heart disease of native coronary artery without angina pectoris
CPT/HCPCS: 36415; 80053; 80061; 85025

== ENCOUNTER → 2020-03-31 13:46 | Outpatient (CLI) | payer MEDICARE, MEDICAID, SELFPAY ==
[2020-01-08 16:30] VITALS: BMI 18.3
[2020-03-10 11:14] VITALS: BMI 18.9
[2020-03-31 14:17] LABS: Hemoglobin 14.3 g/dL (13.0-16.5); Mean Corp Hgb Conc 32.5 g/dL (32-36); Mean Corpuscular Hgb 31.1 pg (27.0-32.0); Mean Corpuscular Volume 95.7 fL (80-94); Mean Platelet Vol. 9.3 fl (6.2-12.0); Platelet Count 262 K/mm3 (150-450); RBC Distribution Width CV 12.1 % (11.6-14.6); White Blood Count 5.5 K/mm3 (4.4-11.0)
[2020-03-31 14:56] LABS: Carbamazepine (Tegretol) 6.5 ug/mL (4.0-12.0); Vitamin D,25 Hydroxy 11.4 ng/mL
[2020-03-31 15:05] LABS: ALB/GLOB Ratio 1.1 RATIO (0.9-2.4); AST(SGOT) 15 U/L (15-37); Alanine Aminotransfer ALT/SGPT 22 U/L (16-61); Alkaline Phosphatase 84 U/L (45-117); Anion Gap 6 (5-15); BUN 11 mg/dL (7-18); BUN/Creat Ratio 11.3 RATIO (10-20); Calcium,Total 8.5 mg/dL (8.5-10.1); Chloride 104 mmol/L (98-107); Creatinine, Serum 0.97 mg/dL (0.70-1.30); EST Glomerular Filtration Rate 86 mL/min (>60); Est Glom Filt Rate - Afr Amer 104 mL/min (>60); Globulin 3.5 g/dL (2.2-4.2); Glucose 86 mg/dL (74-106); Potassium 4.1 mmol/L (3.5-5.1); Protein, Total 7.5 g/dL (6.4-8.2); Sodium Level 136 mmol/L (136-145); Thyroid Stim Hormone (TSH) 1.38 uIU/mL (0.358-3.74)
== END ==
PROVIDERS: PCP Internal Medicine; Referring Provider Registered Nurse; Visit Provider Registered Nurse
DX: E55.9 Vitamin D deficiency, unspecified (principal); F31.9 Bipolar disorder, unspecified; F19.10 Other psychoactive substance abuse, uncomplicated; R53.83 Other fatigue; Z79.899 Other long term (current) drug therapy
CPT/HCPCS: 36415; 80053; 80156; 82306; 84443; 85027

== ENCOUNTER → 2020-07-09 10:16 | Outpatient (CLI) | payer MEDICARE, MEDICAID, SELFPAY ==
[2020-07-08 10:03] VITALS: BMI 18.9
--- NOTE | 2020-07-09 10:20 | RAD_ITS ---
STUDY: X-RAY CHEST REASON FOR EXAM: Male, 54 years old. Productive cough, Hx emphysema TECHNIQUE: PA and lateral views of the chest. COMPARISON: Comparison is made with prior examination dated 09/19/2013. FINDINGS: Hyperinflation. Decreased bronchovascular markings throughout the lungs suggestive of emphysematous changes. Stable scarring at the lung bases. Normal size heart. Normal mediastinum and aleah. There is prominence of the pulmonary hilar arteries without peripheral pulmonary vascular congestion, suggesting pulmonary hypertension. Normal visualized aortic arch and descending thoracic aorta. Normal visualized thoracic spine. Prior surgical fusion of the lower cervical spine. There is no demonstrated abnormality of the visualized soft tissue structures of the upper abdomen. RAD/Chest PA and Lateral IMPRESSION: Hyperinflation. Findings in keeping with emphysema. Stable bibasilar scarring. Electronically Signed: Aiden Santiago MD at 14:25 EST , Service support ,
== END ==
PROVIDERS: PCP Internal Medicine; Referring Provider Internal Medicine; Visit Provider Internal Medicine
DX: R05 Cough (principal); J02.9 Acute pharyngitis, unspecified; J44.9 Chronic obstructive pulmonary disease, unspecified
CPT/HCPCS: 71046; 87635; U0003

== ENCOUNTER → 2020-08-25 09:21 | Outpatient (CLI) | payer MEDICARE, MEDICAID, SELFPAY ==
[2020-06-02 10:28] VITALS: BMI 18.9
[2020-07-08 10:03] VITALS: BMI 18.9
--- NOTE | 2020-08-27 09:29 | PFT ---
INTRODUCTION: The patient is a 54-year-old male that presents for pulmonary function studies secondary to a diagnosis of COPD. Respiratory therapy reports good patient effort. Bronchodilators were used during testing. INTERPRETATION: Forced expiration spirometry demonstrates the presence of a very severe large airways obstructive ventilatory defect. There was a significant response to aerosolized bronchodilators noted. Spirograms are of fair quality but do not plateau indicating slow emptying of the lungs. Body plethysmography was performed and reveals a decreased TLC to 4.46 L, 80% of predicted, indicative of a mild restrictive ventilatory impairment. Diffusing capacity by single breath CO is reduced at 40% of predicted. When compared to previous pulmonary function studies from August 2019, there has been a 19% reduction in FEV1, 26% reduction in FVC and 40% reduction in TLC. IMPRESSION: Partially reversible very severe mixed ventilatory defect with symmetric reduction in diffusing capacity. There has been interval worsening in the patient's PFTs since August 2019, as noted above.
== END ==
PROVIDERS: PCP Internal Medicine; Referring Provider Nurse Practitioner Acute Care; Visit Provider Nurse Practitioner Acute Care
DX: J44.9 Chronic obstructive pulmonary disease, unspecified (principal)
CPT/HCPCS: 94060; 94726; 94729

== ENCOUNTER → 2020-08-27 12:21 | Outpatient (CLI) | payer MEDICARE, MEDICAID, SELFPAY ==
[2020-06-02 10:28] VITALS: BMI 18.9
[2020-07-08 10:03] VITALS: BMI 18.9
[2020-08-27 12:50] VITALS: PULSE 102; PULSE 103; PULSE 104; PULSE 107; PULSE 90; PULSE 91; PULSE 98; O2SAT 87; O2SAT 91; O2SAT 92; O2SAT 93; O2SAT 94; O2SAT 95
--- NOTE | 2020-08-27 12:54 | CPS ---
Patient arrived on 3lpm demand flow and placed on room air. Patient at rest prior to test, baseline respiratory status. Patient began walk test on room air. At 2 min, spo2 was at 87%, rest taken to apply patients own device at 2lpm demand flow, remained on 2lpm demand flow remainder of test. He denied need for any other rest breaks.
--- NOTE | 2020-08-28 07:59 | PCM.PSN.6M ---
PSN 6 Minute Walk Test - 6 Minute Walk Test 6 Minute Walk Test: 6 Minute Walk Test PSN:6-Minute Walk Test Start: 08/27/20 12:50 Freq: Status: Active Protocol: RESP.6MINW Document 08/27/20 12:50 [facility] (Rec: 08/27/20 12:59 [facility] [id number]) 6 Minute Walk Test Date Performed 08/27/20 Time Performed 12:30 Height 5 ft 5 in Weight: 108 lb Weight in Pounds 108.[address]: Willy Barragan Assistive device used: None Pre-test Oxygen Delivery Method Room Air Pulse Ox (%) 95 Pulse Rate (60-100 beats/min) 91 Dyspnea Jacqueline Scale (0-10) 3 Reported Symptoms Increased Work of Breathing 1st minute Oxygen Delivery Method Room Air Pulse Ox (%) 94 Pulse Rate (60-100 beats/min) 98 Dyspnea Jacqueline Scale (0-10) 3 Number of Rests Taken 0 Reported Symptoms Increased Work of Breathing 2nd minute Oxygen Delivery Method Room Air Pulse Ox (%) 87 Pulse Rate (60-100 beats/min) 102 H Dyspnea Jacqueline Scale (0-10) 4 Number of Rests Taken 1 Reported Symptoms Increased Work of Breathing 3rd minute Oxygen Flow Rate (L/min) (L/min) 2 Oxygen Delivery Method Nasal Cannula Pulse Ox (%) 91 Pulse Rate (60-100 beats/min) 103 H Dyspnea Jacqueline Scale (0-10) 3 Number of Rests Taken 0 Reported Symptoms Increased Work of Breathing 4th minute Oxygen Flow Rate (L/min) (L/min) 2 Oxygen Delivery Method Nasal Cannula Pulse Ox (%) 93 Pulse Rate (60-100 beats/min) 102 H Dyspnea Jacqueline Scale (0-10) 4 Number of Rests Taken 0 Reported Symptoms Increased Work of Breathing 5th minute Oxygen Flow Rate (L/min) (L/min) 2 Oxygen Delivery Method Nasal Cannula Pulse Ox (%) 93 Pulse Rate (60-100 beats/min) 104 H Dyspnea Jacqueline Scale (0-10) 4 Number of Rests Taken 0 Reported Symptoms Increased Work of Breathing 6th minute Oxygen Flow Rate (L/min) (L/min) 2 Oxygen Delivery Method Nasal Cannula Pulse Ox (%) 92 Pulse Rate (60-100 beats/min) 107 H Dyspnea Jacqueline Scale (0-10) 4 Number of Rests Taken 0 Reported Symptoms Increased Work of Breathing Post-test Oxygen Flow Rate (L/min) (L/min) 2 Oxygen Delivery Method Nasal Cannula Pulse Ox (%) 94 Pulse Rate (60-100 beats/min) 90 Dyspnea Jacqueline Scale (0-10) 3 Reported Symptoms Increased Work of Breathing Full Laps Walked 12 Partial Lap, Number of Tiles Walked 13 Total Distance Walked (ft) 721 08/27/20 12:54 Cardiopulmonary Services by Viviane Mejia Patient arrived on 3lpm demand flow and placed on room air. Patient at rest prior to test, baseline respiratory status. Patient began walk test on room air. At 2 min, spo2 was at 87%, rest taken to apply patients own device at 2lpm demand flow, remained on 2lpm demand flow remainder of test. He denied need for any other rest breaks. Initialized on 08/27/20 12:54 - END OF NOTE - Interpretation Interpretation: The patient ambulated 721 feet over the course of 6 minutes beginning on room air without assistive devices. Pretesting oxygen saturation was noted to be 95% on room air. With ambulation, the sarath oxygen saturation was 87%. 2 L/min of supplemental oxygen was applied, and the patient was able to complete the remainder of the test while maintaining appropriate oxygen saturations. - Recommendations Recommendations: 2 L/min of supplemental oxygen should be utilized with exertion.
== END ==
PROVIDERS: PCP Internal Medicine; Referring Provider Nurse Practitioner Acute Care; Visit Provider Nurse Practitioner Acute Care
DX: J44.9 Chronic obstructive pulmonary disease, unspecified (principal)
CPT/HCPCS: 94618

== ENCOUNTER → 2020-09-14 16:55 | Outpatient (CLI) | payer MEDICARE, MEDICAID, SELFPAY ==
[2020-07-08 10:03] VITALS: BMI 18.9
--- NOTE | 2020-09-14 17:04 | MRI_ITS ---
STUDY: MRI BRAIN WITH AND WITHOUT CONTRAST (ATTENTION INTERNAL AUDITORY CANALS - I.A.C.''s) REASON FOR EXAM: Male, 54 years old. UNILATERAL SENSORINEURAL HEARING LOSS- RIGHT EAR TECHNIQUE: Standardized multiplanar fat and water weighted pulse sequences were obtained. IV 10ml Dotarem was administered for the contrast portion of the examination. COMPARISON: None. FINDINGS: Normal bilateral temporal bones. Normal bilateral internal auditory canals. There is no demonstrated intracanalicular or cisternal vestibular schwannoma (acoustic neuroma). There is no enhancement of the bilateral VIIth or VIIIth cranial nerves. Normal bilateral cochlea, vestibules and semicircular canals. There is mild cerebral atrophy with widening of the extra-axial spaces and ventricular dilatation. There are a limited number of small white matter hyperintensities, distributed throughout the deep white matter tracts of the cerebral hemispheres, consistent with mild chronic white matter ischemic changes. Normal bilateral basal ganglia. Normal thalami. Normal flow voids within the major intracranial circulation suggesting patency by spin echo criteria. Normal venous enhancement. There is no enhancing intra-axial or extra-axial abnormality. There is no extra-axial fluid accumulation. Normal sella turcica, pituitary gland, infundibular stalk, optic chiasm and hypothalamus. Normal tectal plate and pineal gland. Normal midbrain, yovana and medulla. Normal cerebellum. N MRI/Brain W/WO Contrast IMPRESSION: There is no demonstrated intracanalicular or cisternal vestibular schwannoma (acoustic neuroma). No acute intracranial abnormality or masses. Electronically Signed: David Haines MD at 15:59 EDT Tel , Service support ,
[2020-09-14 18:11] LABS: Creatinine, Serum 1.04 mg/dL (0.70-1.30); EST Glomerular Filtration Rate 79 mL/min (>60); Est Glom Filt Rate - Afr Amer 96 mL/min (>60); Sodium Level 139 mmol/L (136-145)
[2020-09-14 18:23] LABS: Vitamin D,25 Hydroxy 68.4 ng/mL
== END ==
PROVIDERS: PCP Internal Medicine; Referring Provider Otolaryngology; Visit Provider Otolaryngology
DX: H90.41 Sensorineural hearing loss, unilateral, right ear, with unrestricted hearing on the contralateral side (principal); E55.9 Vitamin D deficiency, unspecified; F31.9 Bipolar disorder, unspecified; F19.10 Other psychoactive substance abuse, uncomplicated; R53.83 Other fatigue; Z79.899 Other long term (current) drug therapy
CPT/HCPCS: 36415; 70553; 82306; 82565; 84295; A9575

== ENCOUNTER → 2021-01-29 09:46 | Outpatient (CLI) | payer MEDICARE, MEDICAID, SELFPAY ==
[2021-01-11 09:18] VITALS: BMI 17.8
--- NOTE | 2021-01-29 09:51 | CT_ITS ---
STUDY: CT CHEST WITHOUT CONTRAST- LOW DOSE SCREENING PROTOCOL REASON FOR EXAM: Male, 55 years old. Current smoker. 20 pack per year history. No current symptoms of lung cancer or pulmonary infection. Shared decision-making with referring PCP documented in patient''s record. RADIATION DOSAGE (If Supplied By Facility): CTDIvol = ( 2.01 ) mGy, DLP = ( 72.73 ) mGycm TECHNIQUE: Low dose screening CT examination performed from the base of the neck to the upper abdomen. Sagittal and coronal reformatted images performed. Sagittal and coronal MIP images provided. The measurements provided are average, rounded measurements per ACR guidelines. COMPARISON: 04/04/2019 FINDINGS: Moderate emphysematous changes. There is no demonstrated pleural abnormality. Normal heart and pericardium. There are calcifications of the coronary arteries. Normal mediastinum. Normal hilar regions. Normal unenhanced pulmonary arteries. Normal aorta arch and descending thoracic aorta. Normal osseous structures. There is no demonstrated abnormality of the visualized upper abdomen. CT/Low Dose CT Lung Screening IMPRESSION: 1. No significant indeterminate incidental findings requiring additional imaging. 2. Incidental findings include moderate emphysema. ASSESSMENT CATEGORY: LungRADS 1 - Negative. Continue annual screening with LDCT in 12 months, per established ACR guidelines. Electronically Signed: Ubaldo Connelly MD at 12:39 EDT Tel , Service support ,
== END ==
PROVIDERS: PCP Internal Medicine; Referring Provider Nurse Practitioner Acute Care; Visit Provider Nurse Practitioner Acute Care
DX: F17.210 Nicotine dependence, cigarettes, uncomplicated (principal)
CPT/HCPCS: 71271

== ENCOUNTER → 2021-02-16 12:39 | Outpatient (CLI) | payer MEDICARE, SELFPAY | PROVIDERS: PCP Internal Medicine; Referring Provider Physician Assistant; Visit Provider Physician Assistant | DX: Z20.822 Contact with and (suspected) exposure to COVID-19 (principal) | CPT/HCPCS: 87635; U0005; U0003 ==

== ENCOUNTER → 2021-04-18 10:56 | Outpatient (CLI) | payer MEDICARE, SELFPAY ==
--- NOTE | 2021-04-18 11:00 | RAD_ITS ---
STUDY: X-RAY - SKULL REASON FOR EXAM: Male, 55 years old. Temporal area pain. TECHNIQUE: 4 view(s) of the skull were obtained. COMPARISON: None. FINDINGS: There is no demonstrated soft tissue swelling. Normal osseous calvarium. Normal visualized facial bones. Normal visualized paranasal sinuses. RAD/Skull min 4 Views IMPRESSION: Normal x-ray examination of the skull. Electronically Signed: Elie Guillory MD at 14:09 EDT , Service support ,
== END ==
PROVIDERS: PCP Internal Medicine; Referring Provider Internal Medicine; Visit Provider Internal Medicine
DX: S09.90XA Unspecified injury of head, initial encounter (principal); R51.9 Headache, unspecified
CPT/HCPCS: 70260

== ENCOUNTER → 2021-05-31 10:09 | Outpatient (CLI) | payer MEDICARE, MEDICAID, SELFPAY ==
--- NOTE | 2021-05-31 10:20 | RAD_ITS ---
STUDY: X-RAY CHEST REASON FOR EXAM: Male, 55 years old. cough, dyspnea TECHNIQUE: PA and lateral views of the chest. COMPARISON: 07/09/2020 FINDINGS: Status post anterior cervical discectomy and fusion in the lower cervical spine. There is hyperinflation of the lungs consistent with chronic obstructive lung disease (COPD). There is no demonstrated pleural abnormality. Normal size heart. Normal mediastinum and aleah. Normal visualized pulmonary arteries. Normal visualized aortic arch and descending thoracic aorta. Normal visualized thoracic spine. Normal visualized ribs, clavicles, and shoulders. There is no demonstrated abnormality of the visualized soft tissue structures of the upper abdomen. RAD/Chest PA and Lateral IMPRESSION: Emphysema without pneumonia or atelectasis Electronically Signed: Ubaldo Connelly MD at 17:13 EST Tel , Service support ,
== END ==
PROVIDERS: PCP Internal Medicine; Referring Provider Physician Assistant; Visit Provider Physician Assistant
DX: R05.9 Cough, unspecified (principal); R06.00 Dyspnea, unspecified; J44.9 Chronic obstructive pulmonary disease, unspecified; I27.21 Secondary pulmonary arterial hypertension
CPT/HCPCS: 71046; 87635; U0005; U0003

== ENCOUNTER → 2021-06-07 13:33 | Outpatient (CLI) | payer MEDICARE, MEDICAID, SELFPAY | PROVIDERS: PCP Internal Medicine; Referring Provider Physician Assistant Surgical; Visit Provider Physician Assistant Surgical | DX: Z11.52 Encounter for screening for COVID-19 (principal) | CPT/HCPCS: 87635; U0005; U0003 ==

== ENCOUNTER → 2021-12-03 | Outpatient (CLI) | payer MEDICARE, SELFPAY ==
--- NOTE | 2021-12-03 10:36 | RAD_ITS ---
HISTORY: cough, shortness of breath, emphysema. TECHNIQUE: XR Chest 2 Views. COMPARISON: 05/31/2021. FINDINGS: CARDIOMEDIASTINAL BORDERS: Cardiac silhouette within normal limits in size. Mediastinal contour unremarkable. LUNGS: Advanced emphysema with hyperinflation and mild scarring. PLEURA: No pleural effusion or pneumothorax seen. OSSEOUS STRUCTURES: Cervical spinal fusion hardware again seen. RAD/Chest PA and Lateral IMPRESSION: No acute cardiopulmonary process identified. COPD. Electronically Signed: Gail Patricia MD at 16:44 EDT ,
[2021-12-03 11:18] LABS: Absolute Lymphocyte Count 1.41 X10^3/uL (0.83-4.51); Absolute Neutrophil Count 6.3 X10^3/uL (2.0-7.7); Basophil# 0.07 X10^3/uL; Basophil% 0.8 % (0-1); Eosinophil# 0.15 X10^3/uL; Eosinophils% 1.6 % (0-5); Hematocrit 38.5 % (40-54); Hemoglobin 13.3 g/dL (13.0-16.5); Lymphocyte # 1.41 X10^3/ul (0.83-4.51); Lymphocyte % 15.4 % (19-41); Mean Corp Hgb Conc 34.5 g/dL (32-36); Mean Corpuscular Volume 92.8 fL (80-94); Mean Platelet Vol. 10.1 fl (6.2-12.0); Monocyte# 1.18 X10^3/uL; Monocyte% 12.9 % (0-10); NRBC Flagged by Analyzer 0 % (0-5); Neutrophil # 6.29 X10^3/uL (2.7-7.7); Neutrophil % 68.9 % (47-70); Platelet Count 298 K/mm3 (150-450); RBC Distribution Width CV 12.6 % (11.6-14.6); RBC Distribution Width SD 42.6 fl (35.1-43.9); Red Blood Count 4.15 M/mm3 (4.6-6.2); White Blood Count 9.1 K/mm3 (4.4-11.0)
[2021-12-03 11:38] LABS: AST(SGOT) 19 U/L (15-37); Alanine Aminotransfer ALT/SGPT 29 U/L (16-61); Albumin, Serum 3.8 g/dL (3.2-5.0); Alkaline Phosphatase 76 U/L (45-117); Anion Gap 8 (5-15); BUN 8 mg/dL (7-18); Calcium,Total 8.8 mg/dL (8.5-10.1); Chloride 98 mmol/L (98-107); EST Glomerular Filtration Rate 106 mL/min (>60); Est Glom Filt Rate - Afr Amer 129 mL/min (>60); Globulin 3.7 g/dL (2.2-4.2); Glucose 95 mg/dL (74-106); Potassium 3.5 mmol/L (3.5-5.1); Protein, Total 7.5 g/dL (6.4-8.2); Sodium Level 134 mmol/L (136-145)
== END | disposition home or self-care (01) ==
LOC: LAB 10:35
PROVIDERS: PCP Internal Medicine; Referring Provider Physician Assistant; Visit Provider Physician Assistant
DX: J44.9 Chronic obstructive pulmonary disease, unspecified (principal); F17.210 Nicotine dependence, cigarettes, uncomplicated; R05.9 Cough, unspecified; R06.02 Shortness of breath
CPT/HCPCS: 36415; 71046; 80053; 85025

== ENCOUNTER → 2022-01-30 | Outpatient (CLI) | payer MEDICARE, SELFPAY ==
--- NOTE | 2022-01-30 12:56 | CT_ITS ---
STUDY: LOW DOSE CT LUNG CANCER SCREENING REASON FOR EXAM: Male, 56 years old. smoker and gt; 20 pack years RADIATION DOSAGE (If Supplied By Facility): CTDIvol = ( 2.01 ) mGy, DLP = ( 71.73 ) mGycm TECHNIQUE: No contrast was administered. Low dose technique was utilized (average mAS-38 and kVp 120). 1.25 mm axial source images with a slice interval of 1.25-mm were reconstructed in lung windows. 2.5 mm axial source images with a slice interval of 2.5-mm were reconstructed in lung windows. 5.0 mm axial source images with a slice interval of 5.0-mm were reconstructed in soft tissue windows. COMPARISON: None. Emphysema: Severe emphysema. Mild left apical scarring. 1 cm noncalcified nodule in the subpleural medial aspect of the lingula of the left lung on image 220 and correlation with PET CT scan is recommended. If PET negative, follow-up CT is recommended in 6 months to document stability. Endobronchial lesion: None Aorta: Normal CORONARY ARTERIES: Coronary artery calcification is seen. Heart: No cardiomegaly. Pulmonary artery: Normal Mediastinal nodes: None Other chest and abdominal findings: CT/Low Dose CT Lung Screening IMPRESSION: Lung-RADS category 4A - Screening at 3 months with LDCT or evaluation with PET/CT may be used. IMPORTANT NOTES FOR USE: ACR Lung-RADS Version 1.1 Assessment Categories Release Date: 2018 Category: Coded 0-4 bases on nodule(s) with highest degree of suspicion. Negative screen is defined as categories 1 and 2; a positive screen is defined as categories 3 and 4. Category 3 and 4A nodules that are unchanged on interval CT should be coded as category 2, and individuals returned to screening in 12 months. Category 4X: Category 3 or 4 nodules with additional imaging findings that increase the suspicion of lung cancer, such as spiculation, GGN that doubles in size in 1 year, enlarged lymph notes, etc. Category Modifiers: S (significant finding unrelated to lung cancer) Electronically Signed: Ubaldo Connelly MD at 13:57 EDT ,
== END | disposition home or self-care (01) ==
LOC: CT 12:55
PROVIDERS: PCP Internal Medicine; Referring Provider Nurse Practitioner Acute Care; Visit Provider Nurse Practitioner Acute Care
DX: F17.210 Nicotine dependence, cigarettes, uncomplicated (principal); Z12.2 Encounter for screening for malignant neoplasm of respiratory organs
CPT/HCPCS: 71271

== ENCOUNTER → 2022-02-08 | Outpatient (CLI) | payer MEDICARE, MEDICAID, SELFPAY ==
--- NOTE | 2022-02-08 09:00 | PET_ITS ---
EXAMINATION: FDG PET-CT INDICATIONS: A 56-year-old male with history of pulmonary nodularity. COMPARISON EXAMINATION: CT of the chest dated 01/30/22 TECHNIQUE: Following the intravenous administration of 11.78 mCi of F-18 deoxyglucose via the right antecubital fossa, multiplanar image acquisitions of the neck, chest, abdomen and pelvis to level of mid thigh, obtained at one hour post radiopharmaceutical administration contemporaneously interpreted with the current CT of the neck, chest, abdomen and pelvis, to level of mid thigh, dated 02/08/[address] of the chest dated 01/30/22 reveals: BLOOD GLUCOSE LEVEL:?? 102 mg/dl?HEIGHT:?65 inches?WEIGHT: 104 lbs. FINDINGS: Head/Neck: There is no evidence of abnormal increased glucose metabolism in the pharyngeal mucosal space, parapharyngeal space, bilateral-lateral and anterior neck, hypopharynx and distribution of the laryngeal structures. The visualized portion of the cerebral cortical-subcortical structures demonstrate symmetric and preserved glucose metabolism. CHEST: There is no quantitative scintigraphic evidence of abnormal increased glucose metabolism within the context of the bilateral hemithorax pulmonary parenchyma, right and left hemithorax pleural interface, mediastinal structures and right-left thoracic perihilum. Pertinent chest CT findings are as follows. A parenchymal density defined in the left lower anteromedial lung zones is non-glucose avid. Bilateral axillary soft tissue densities are non-glucose avid. Emphysematous changes are defined in the bilateral upper lung zones. Abdomen/Pelvis: Normal physiologic distribution of the radiopharmaceutical is apparent in the hepatic and splenic parenchyma, both renal units, bladder and visualized intestinal tract. Pertinent abdomen and pelvis CT findings are as follows. There is atherosclerotic calcification defined in the abdominal aorta without evidence of dilatation-aneurysm formation. Pelvic arterial calcification is observed. Calcifications are defined in the bilateral lower hemipelvis. Right and left inguinal soft tissue is ametabolic. Skeletal: Orthopedic hardware placement is defined in the lower cervical spine most consistent with spinal fusion operative intervention. Degenerative changes are noted in the cervical, thoracic and lumbar spine without evidence of increased radiopharmaceutical concentration. PET/PET/CT Tumor Base -Thigh Init IMPRESSION: 1. NEGATIVE EXAMINATION. There is no definitive quantitative scintigraphic evidence of viable neoplasm. 2. Meticulous attention paid to the left lower anteromedial lung zone, lingula reveals no evidence of increased glucose metabolism within the non-calcified parenchymal density. 3. Anatomic stability may be ensured in the left hemithorax pulmonary parenchyma with repeat FDG PET-CT imaging and/or CT of the chest in 3-6 months if clinically indicated. (Gregorio, Seminars in Thoracic and Cardiovascular Surgery 14:292, 2002). Electronic Signature Ubaldo Garcia D.O. Accurate Quantification of SUVs for this report are calculated using the exclusive [employer]. ([place].S. Patent No. 10, [id number] 983). Standardization and correction of the FDG SUV metric via [employer] technology allow for vendor non-specific objective quantitative examination comparison and optimization of the sensitivity and specificity of the FDG PET-CT examination. Electronically Signed: Ubaldo Garcia, at 16:46 EDT ,
== END | disposition home or self-care (01) ==
LOC: ONC 08:30
PROVIDERS: PCP Internal Medicine; Referring Provider Internal Medicine Critical Care Medicine; Visit Provider Internal Medicine Critical Care Medicine
DX: R91.1 Solitary pulmonary nodule (principal)
CPT/HCPCS: 78815; A9552

== ENCOUNTER → 2022-05-05 | Outpatient (CLI) | payer MEDICARE, MEDICAID, SELFPAY ==
--- NOTE | 2022-05-05 13:08 | CT_ITS ---
INDICATION: Follow-up high risk mass. EXAMINATION: CT CHEST WITHOUT CONTRAST - CT Chest W/O Contrast Injection TECHNIQUE: Helically acquired images were obtained of the chest. A radiation dose optimization technique was used for this scan. IV Contrast dosage and agent: None. COMPARISON: Pet/CT scan, February 08, 2022. CT of the chest, January 29, 2021. FINDINGS: LUNGS, PLEURA AND LARGE AIRWAYS: Emphysematous changes of the lungs. No evidence of pulmonary mass. No acute infiltrate. No pleural effusion or thickening. No pneumothorax. THYROID: No thyroid lesions. HEART AND PERICARDIUM: Heart size is normal. No pericardial effusion. CORONARY ARTERIES: Coronary artery calcification minimal VESSELS: Thoracic aorta is not dilated. MEDIASTINUM AND JASON: No mediastinal or hilar adenopathy. Esophagus is unremarkable. No hiatal hernia. UPPER ABDOMEN: No acute pathology. BONES: Mild degenerative changes of the thoracic spine. There is evidence of anterior fusion lower cervical spine CT/Chest without Contrast IMPRESSION: Emphysematous changes of lungs without mass or infiltrate. There is no major interval change. Electronically Signed: Daniele Krishnamurthy DO at 17:12 [facility] ,
== END | disposition home or self-care (01) ==
LOC: CT 13:07
PROVIDERS: PCP Internal Medicine; Referring Provider Nurse Practitioner Acute Care; Visit Provider Nurse Practitioner Acute Care
DX: R91.1 Solitary pulmonary nodule (principal)
CPT/HCPCS: 71250

== ENCOUNTER → 2022-08-11 | Outpatient (CLI) | payer MEDICARE, MEDICAID, SELFPAY | END | disposition home or self-care (01) | LOC: LABSPEC 10:16 | PROVIDERS: PCP Internal Medicine; Visit Provider Internal Medicine Critical Care Medicine | DX: J44.9 Chronic obstructive pulmonary disease, unspecified (principal) | CPT/HCPCS: 87070; 87077; 87205 ==

== ENCOUNTER → 2022-09-12 | Outpatient (CLI) | payer MEDICARE, MEDICAID, SELFPAY ==
[2022-09-12 08:15] VITALS: PULSE 100; PULSE 102; PULSE 103; PULSE 110; PULSE 111; PULSE 114; PULSE 96; O2SAT 88; O2SAT 90; O2SAT 93; O2SAT 95; O2SAT 96; O2SAT 98; O2SAT 99
--- NOTE | 2022-09-12 08:18 | CPS ---
Patient stated that he wears 3L at rest and 5-6L on exertion at home. On room air patient's sat's were 88%, therefore test was initiated on 4L. At the 3 minute walter patient's sat's dropped to 88% therefore oxygen was increased to 6L. The remainder of the test was completed on 6L and sat's were maintained above 90%
--- NOTE | 2022-09-12 10:27 | PCM.PSN.6M ---
PSN 6 Minute Walk Test 6 Minute Walk Test 6 Minute Walk Test: 6 Minute Walk Test PSN:6-Minute Walk Test Start: 09/12/22 08:15 Freq: Status: Active Protocol: RESP.6MINW Document 09/12/22 08:15 GEMA (Rec: 09/12/22 08:22 [id number]) 6 Minute Walk Test Date Performed 09/12/22 Time Performed 08:15 Height 5 ft 5 in Weight: 54.431 kg Weight in Pounds 120.[address]: Edna Umanzor [employer]STIGATOR Assistive device used: Walker Pre-test Oxygen Delivery Method Room Air Pulse Ox (%) 88 Pulse Rate (60-100 beats/min) 102 H Dyspnea Jacqueline Scale (0-10) 0 Exertion Jacqueline Scale (6-20) 6 1st minute Oxygen Flow Rate (L/min) (L/min) 4 Oxygen Delivery Method Nasal Cannula Pulse Ox (%) 93 Pulse Rate (60-100 beats/min) 111 H 2nd minute Oxygen Flow Rate (L/min) (L/min) 4 Oxygen Delivery Method Nasal Cannula Pulse Ox (%) 90 Pulse Rate (60-100 beats/min) 114 H 3rd minute Oxygen Flow Rate (L/min) (L/min) 6 Oxygen Delivery Method Nasal Cannula Pulse Ox (%) 98 Pulse Rate (60-100 beats/min) 100 Number of Rests Taken 1 4th minute Oxygen Flow Rate (L/min) (L/min) 6 Oxygen Delivery Method Nasal Cannula Pulse Ox (%) 96 Pulse Rate (60-100 beats/min) 103 H 5th minute Oxygen Flow Rate (L/min) (L/min) 6 Oxygen Delivery Method Nasal Cannula Pulse Ox (%) 95 Pulse Rate (60-100 beats/min) 103 H 6th minute Oxygen Flow Rate (L/min) (L/min) 6 Oxygen Delivery Method Nasal Cannula Pulse Ox (%) 93 Pulse Rate (60-100 beats/min) 110 H Post-test Oxygen Flow Rate (L/min) (L/min) 6 Oxygen Delivery Method Nasal Cannula Pulse Ox (%) 99 Pulse Rate (60-100 beats/min) 96 Dyspnea Jacqueline Scale (0-10) 13 Exertion Jacqueline Scale (6-20) 3 Full Laps Walked 10 Partial Lap, Number of Tiles Walked 4 Total Distance Walked (ft) 594 09/12/22 08:18 Cardiopulmonary Services by Shireen Saleh Patient stated that he wears 3L at rest and 5-6L on exertion at home. On room air patient's sat's were 88%, therefore test was initiated on 4L. At the 3 minute walter patient's sat's dropped to 88% therefore oxygen was increased to 6L. The remainder of the test was completed on 6L and sat's were maintained above 90% Initialized on 09/12/22 08:18 - END OF NOTE Interpretation Interpretation: The patient was noted to be 88% on room air at rest. The patient was then placed on 4 L nasal cannula with saturations improving to 93%. The patient subsequently dropped to 88% after 2 minutes of ambulation and was placed on 6 L/min. In total, the patient traveled 594 feet over the course of 6 minutes with the assistance of a walker and 2 breaks. These findings are consistent with a respiratory limitation exercise tolerance. Recommendations Recommendations: The patient requires 4 L nasal cannula at rest and 6 L/min with ambulation
== END | disposition home or self-care (01) ==
LOC: PSN 07:47
PROVIDERS: PCP Internal Medicine; Referring Provider Nurse Practitioner Acute Care; Visit Provider Nurse Practitioner Acute Care
DX: J44.9 Chronic obstructive pulmonary disease, unspecified (principal)
CPT/HCPCS: 94618

== ENCOUNTER 2022-12-15 22:27 | Emergency (ER) | payer MEDICARE, MEDICAID, SELFPAY ==
[2022-12-15 22:28] VITALS: BP 154/101; PULSE 122; RESP 24; TEMP 36.6; O2SAT 94; BMI 20.3
[2022-12-15 22:40] VITALS: BP 146/85; PULSE 105; RESP 19; O2SAT 100
[2022-12-15 22:42] VITALS: PULSE 101; RESP 20
[2022-12-15 22:48] VITALS: O2SAT 94
[2022-12-15] MEDS: Albuterol 2.5 MG/3 ML VIAL.NEB. INHALATION (22:52)
[2022-12-15] MEDS: Ipratropium/Albuterol Sulfate 3 ML AMPUL.NEB INHALATION (22:52)
--- NOTE | 2022-12-15 22:52 | CPS ---
[2252] x1 Albuterol given to pt. in ER as well
[2022-12-15] MEDS: predniSONE 20 MG Tablet 60 MG PO (22:57)
[2022-12-15] MEDS: LORazepam 1 MG Tablet PO (22:57)
--- NOTE | 2022-12-15 23:03 | RAD_ITS ---
STUDY: X-RAY CHEST REASON FOR EXAM: Male, 57 years old. cough TECHNIQUE: PA and lateral views of the chest. COMPARISON: 12/03/2021 FINDINGS: Status post anterior cervical discectomy and fusion lower cervical spine. There is hyperinflation of the lungs consistent with chronic obstructive lung disease (COPD). There is no demonstrated pleural abnormality. Normal size heart. Normal mediastinum and aleah. Normal visualized pulmonary arteries. Normal visualized aortic arch and descending thoracic aorta. Normal visualized thoracic spine. Normal visualized ribs, clavicles, and shoulders. There is no demonstrated abnormality of the visualized soft tissue structures of the upper abdomen. RAD/Chest PA and Lateral IMPRESSION: Emphysema without pneumonia or atelectasis. Electronically Signed: Ubaldo Connelly MD at 23:17 EDT ,
--- NOTE | 2022-12-15 23:51 | EX.ED.DYSGE1 ---
HPI History of Present Illness Chief Complaint: Shortness of Breath Informant: patient and family Narrative Narrative: Patient is a 57-year-old male with history of emphysema who wears oxygen 08/01. He states that over the last 1 to 2 days he has been having increased shortness of breath that today did not seem to be responding to his home medication and with this comes in for evaluation. 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 Depression Dermatitis Encounter for screening for COVID-19 Head injury Hemorrhoid Left facial swelling Nicotine dependence Secondary pulmonary arterial hypertension Sinusitis Spondylosis of cervical region without myelopathy or radiculopathy [place] tenderness URI (upper respiratory infection) Home Medications carbamazepine 200 mg capsule,extended release [id number] 200 mg PO DAILY 03/01/16 [History Last Taken Unknown] duloxetine 60 mg capsule,delayed release 60 mg PO DAILY 10/29/17 [History Last Taken Unknown] carbamazepine 200 mg tablet 400 mg PO QHS 11/26/18 [History Last Taken Unknown] methocarbamol 750 mg tablet (Robaxin-750) 750 mg PO TID PRN no longer abilio 12/31/19 [History Last Taken Unknown] lamotrigine 200 mg tablet 200 mg PO DAILY 02/09/20 [History Last Taken Unknown] ziprasidone HCl 20 mg capsule 20 mg PO QHS 12/23/20 [History Last Taken Unknown] montelukast 10 mg tablet 10 mg PO QPM #30 tabs 03/10/21 [Rx Last Taken Unknown] meloxicam 15 mg tablet 15 mg PO DAILY #30 tabs 06/16/21 [Rx Last Taken Unknown] Handicap Placard #1 ea 09/02/21 [Rx Last Taken Unknown] triamcinolone acetonide 0.5 % topical cream 1 applic topical DAILY PRN rash #15 grams 11/02/21 [Rx Last Taken Unknown] benzonatate 200 mg capsule 200 mg PO TID PRN cough #60 caps 12/02/21 [Rx Last Taken Unknown] fluticasone propionate 220 mcg/actuation HFA aerosol inhaler (Flovent HFA) 2 puff inhalation BID #12 grams 12/14/21 [Rx Last Taken Unknown] nicotine 10 mg inhalation cartridge (Nicotrol) 1 inh inhalation 4-8XD PRN nicotine cravings #168 ea 12/14/21 [Rx Last Taken Unknown] nitroglycerin 0.4 mg sublingual tablet (Nitrostat) 0.4 mg sublingual Q5-15M #25 tabs 12/29/21 [Rx Last Taken Unknown] nystatin 100,000 unit/mL oral suspension 5 ml mucous membrane TID #250 mL 02/16/22 [Rx Last Taken Unknown] albuterol sulfate 90 mcg/actuation aerosol inhaler 2 puff inhalation Q6H PRN PRN Asthma #18 grams 07/24/22 [Rx Last Taken Unknown] levofloxacin 750 mg tablet 750 mg PO DAILY #7 tabs 08/10/22 [Rx Last Taken Unknown] prednisone 10 mg tablet 10 mg PO DAILY #30 tabs 08/10/22 [Rx Last Taken Unknown] guaifenesin 1,200 mg tablet, extended release 12 hr 1,200 mg PO Q12H #60 tabs 08/31/22 [Rx Last Taken Unknown] tiotropium 2.5 mcg-olodaterol 2.5 mcg/actuation mist for inhalation (Stiolto Respimat) 2 puff inhalation DAILY #4 grams 11/28/22 [Rx Last Taken Unknown] albuterol sulfate 2.5 mg/3 mL (0.083 %) solution for nebulization 2.5 mg (3 mL) inhalation Q6H PRN PRN Asthma #180 mL 12/05/22 [Rx Last Taken Unknown] aripiprazole 15 mg tablet 15 mg PO DAILY 12/15/22 [History Last Taken Unknown] buspirone 15 mg tablet 15 mg PO BID 12/15/22 [History Last Taken Unknown] fluvoxamine 100 mg tablet 100 mg PO BID 12/15/22 [History Last Taken Unknown] prednisone 20 mg tablet 40 mg (2 x 20 mg) PO DAILY 7 days #14 tabs 12/15/22 [Rx Last Taken Unknown] Allergy/AdvReac Type Severity Reaction Status Date / Time amoxicillin trihydrate Allergy Unknown Verified 10/09/22 13:07 [From Augmentin] potassium clavulanate Allergy Unknown Verified 10/09/22 13:07 [From Augmentin] nicotine [From Nicoderm CQ] AdvReac unknown Verified 10/09/22 13:07 primidone AdvReac Other Verified 10/09/22 13:07 Family History Mother Heart disease Hypertension COPD with emphysema Father Diabetes Hypertension Heart disease Brother Lung cancer Surgical History History of left heart catheterization (2009) Hx of carpal tunnel repair Hx of cholecystectomy Hx of eye surgery Hx of fusion of cervical spine Hx of inguinal hernia repair Social History household members: spouse and children housing: house pets and animals: Yes Smoking Status: Current every day smoker tobacco type: cigarettes Tobacco: How many years used: 46 second hand exposure: Yes counseling given: counseling >3 minutes alcohol intake: current alcohol intake frequency: holidays/special occasions only substance use type: marijuana ROS ROS ED Constitutional Constitutional ED: Denies chills or fever(s) ENT ENT ED: Denies sore throat Cardiovascular Cardiovascular: Denies chest pain, palpitations or racing heartbeat Respiratory/Chest Respiratory/Chest: Reports cough and dyspnea Gastrointestinal Gastrointestinal: Denies abdominal pain, diarrhea, nausea or vomiting Genitourinary Genitourinary ED: Denies dysuria Musculoskeletal Musculoskeletal: Denies myalgias Integumentary Denies rash Neurologic Neurologic: Denies headache(s) Hematologic/Lymphatic Hematologic/Lymphatic: Denies easy bleeding or easy bruising EXAM Physical Exam Const Vital Signs: 12/15/22 22:28 12/15/22 22:40 12/15/22 22:48 Temperature 97.8 F Temperature Source Temporal Pulse Rate 122 H 105 H Respiratory Rate 24 H 19 H Respiratory Effort Short of Breath Respiratory Depth Normal Respiratory Pattern Normal Blood Pressure 154/101 H 146/85 H Blood Pressure Mean 118 105 Pulse Ox 94 100 Oxygen Delivery Method Nasal Cannula Nasal Cannula Nasal Cannula Oxygen Flow Rate (L/min) 8 2 2 12/15/22 22:42 12/15/22 23:53 Temperature Temperature Source Pulse Rate 101 H 103 H Respiratory Rate 20 H 18 Respiratory Effort Respiratory Depth Respiratory Pattern Normal Blood Pressure 121/81 H Blood Pressure Mean Pulse Ox 93 Oxygen Delivery Method Oxygen Flow Rate (L/min) Positive well nourished and well developed General Appearance ED: well developed HEENT HEENT Narrative: No tongue or lip swelling no oral lesions no airway edema or compromise Eyes PERRL and EOMs intact bilaterally Neck supple and no JVD Resp Resp Narrative: Patient is tachypneic with diminished breath sounds and faint rhonchi and diffuse expiratory wheezes Cardio regular rhythm Rate: tachycardic and other Other Details: Radial pulses are plus 2 out of 4 bilaterally are equal and symmetric Extremity normal to inspection Extremity Narrative: No asymmetric edema no pitting edema negative Homans' sign bilaterally Neuro oriented x3 and CN's II-XII intact bilaterally Sensorium / Orientation: alert Psych mental status grossly normal Skin no rashes or lesions noted MDM MDM MDM Narrative Medical decision making narrative: Patient presented to the ER mild respiratory distress. Differential diagnosis is COPD/emphysema exacerbation versus pneumonia versus pneumothorax. At this time he does not complaining of chest pain and therefore I felt no need for basic laboratory studies but other andrade just a chest x-ray to rule out underlying lung pathology. Chest x-ray revealed no acute findings other than his emphysema and after patient was treated with steroids and breathing treatments had improvement of his breath sounds and work of breathing. His oxygen value was stable in the mid 90s on just 2 L nasal cannula. Therefore at this time with no acute lung pathology such as pneumonia or pneumothorax and improvement of his work of breathing there is no need for the patient to be kept in the hospital and he otherwise safe for discharge and can follow-up on an outpatient basis. History & Record Review Discussion w/independent historian: Patient and Family Radiography Diagnostic Testing: Clinical Impression(s) from Imaging Studies Chest X-Ray 12/15/22 23:03 IMPRESSION: Emphysema without pneumonia or atelectasis. Electronically Signed: Ubaldo Connelly MD at 23:17 EDT , Chest x-ray as interpreted by the emergency medicine physician reveals emphysematous changes without acute infiltrate pneumothorax or pleural effusion Discharge Plan Triage Chief Complaint: Shortness of Breath ED Provider: Watson Pennington Dx/Rx/DC Orders Clinical Impression: Acute exacerbation of emphysema, Secondary pulmonary arterial hypertension, Smoking greater than 20 pack years Instructions: COPD: Wheezing and Chest Tightness Prescriptions: New prednisone 20 mg tablet 40 mg PO DAILY 7 Days Qty: 14 0RF No Action methocarbamol [Robaxin-750] 750 mg tablet 750 mg PO TID PRN (Reason: no longer abilio) ziprasidone HCl 20 mg capsule 20 mg PO QHS Rx Instructions: give with food (meal/snack) lamotrigine 200 mg tablet 200 mg PO DAILY Nicotrol 10 mg cartridge 1 inh inhalation 4-8XD PRN (Reason: nicotine cravings) Qty: 168 3RF fluticasone propionate [Flovent HFA] 220 mcg/actuation HFA aerosol inhaler 2 puff inhalation BID Qty: 12 5RF triamcinolone acetonide 0.5 % cream 1 applic TOPICAL DAILY PRN (Reason: rash) Qty: 15 3RF benzonatate 200 mg capsule 200 mg PO TID PRN (Reason: cough) Qty: 60 1RF prednisone 10 mg tablet 10 mg PO DAILY Qty: 30 0RF Rx Instructions: Take 4 tabs PO daily for 3 days, then 3 tabs daily for 3 days, then 2 tabs daily for 3 days, then 1 tab daily for 3 days levofloxacin 750 mg tablet 750 mg PO DAILY Qty: 7 0RF carbamazepine 200 MG capsule, ER multiphase 12 hr 200 mg PO DAILY duloxetine 60 MG capsule 60 mg PO DAILY carbamazepine 200 MG tablet 400 mg PO QHS buspirone 15 mg tablet 15 mg PO BID Patient Comments: take 1 tablet by mouth twice a day if needed fluvoxamine 100 mg tablet 100 mg PO BID Patient Comments: take 1 tablet by mouth twice a day aripiprazole 15 mg tablet 15 mg PO DAILY Patient Comments: take 1 tablet by mouth once daily montelukast 10 mg tablet 10 mg PO QPM Qty: 30 3RF meloxicam 15 mg tablet 15 mg PO DAILY Qty: 30 1RF Rx Instructions: Take with food (DME) Handicap Placard See Rx Instructions .Route .MEDSUPPLY Qty: 1 0RF Rx Instructions: EXP 09/02/2026 nitroglycerin [Nitrostat] 0.4 mg tablet, sublingual 0.4 mg SUBLINGUAL Q5-15M Qty: 25 3RF nystatin 100,000 unit/mL suspension 5 ml mucous membrane TID Qty: 250 1RF Rx Instructions: swish and swallow 5 cc three times per day for 10 days albuterol sulfate 90 mcg/actuation HFA aerosol inhaler 2 puff INHALATION Q6H PRN PRN (Reason: Asthma) Qty: 18 6RF guaifenesin 1,200 mg tablet extended release 12hr 1,200 mg PO Q12H Qty: 60 6RF Stiolto Respimat 2.5-2.5 mcg/actuation mist 2 puff inhalation DAILY Qty: 4 3RF albuterol sulfate 2.5 mg /3 mL (0.083 %) solution for nebulization 2.5 mg INHALATION Q6H PRN PRN (Reason: Asthma) Qty: 180 6RF Rx Instructions: J44.9 Primary Care Provider: Betty Gallegos Referrals: Betty Gallegos MD [Primary Care Provider] - Activity Restrictions/Additional Instructions: Continue all your home medication as previously directed but add the prednisone once a day for the next 7 days to prevent any inflammatory processes. Please wear your oxygen at 2 to 4 L and keep your oxygen saturations between 88 and 95%. If you have worsening of symptoms or any further concerns please return for repeat evaluation Disposition Disposition: Home, Self Care Discharge Date/Time: 12/16/22 00:01
[2022-12-15 23:53] VITALS: BP 121/81; PULSE 103; RESP 18; O2SAT 93
== END 2022-12-16 00:01 | disposition home or self-care (01) ==
PROVIDERS: Emergency Provider Emergency Medicine; PCP Internal Medicine; Visit Provider Emergency Medicine
DX: J43.9 Emphysema, unspecified (principal); J44.9 Chronic obstructive pulmonary disease, unspecified; I27.21 Secondary pulmonary arterial hypertension; F12.90 Cannabis use, unspecified, uncomplicated; F17.210 Nicotine dependence, cigarettes, uncomplicated; F32.A Depression, unspecified; Z79.899 Other long term (current) drug therapy; Z99.81 Dependence on supplemental oxygen
CPT/HCPCS: 71046; 94640; 99283

== ENCOUNTER → 2023-01-19 | Outpatient (CLI) | payer MEDICARE, MEDICAID, SELFPAY | END | disposition home or self-care (01) | PROVIDERS: PCP Internal Medicine; Referring Provider Internal Medicine Critical Care Medicine; Visit Provider Internal Medicine Critical Care Medicine | DX: I27.21 Secondary pulmonary arterial hypertension (principal) | CPT/HCPCS: 93306 ==

== ENCOUNTER → 2023-01-24 | Outpatient (CLI) | payer MEDICARE, MEDICAID, SELFPAY ==
--- NOTE | 2023-01-24 14:14 | PR.HP_ITS ---
History of Present Illness General Arrival date:: 01/24/23 (+) Arrival time:: 14:14 Date of Referral:: 01/16/23 Date of Evaluation: 01/24/23 Referring Physician: Dr. Willy Barragan Primary Diagnosis: COPD GOLD IV: very severe History of Present Pulmonary Event [facility] Breathless Scale: When is the patient short of breath? Y/N Grade: Description of Breathlessness: 0 I only get breathless with strenuous exercise. 1 I get short of breath when hurrying on level ground or walking up a slight hill. 2 On level ground, I walk slower than people of the same age because of breathless, or have to stop for breath when walking at my own pace. Y 3 I stop for breath after walking 100 yards or after a few minutes on level ground. 4 I am too breathless to leave the house or I am breathless when dressing. Respiratory Problems: Yes Fatigue, Able to Speak in Full Sentences, Dizziness, Dyspnea at Rest, Dyspnea with Activity and Dyspnea Lying Down Flat; No Retain Secretions, Limited Range of Motion, Chest Pain, Wheezing, Hoarseness or Cough with Secretions Medications Home Medications carbamazepine 200 mg capsule,extended release thaozt92er 200 mg PO DAILY 03/01/16 duloxetine 60 mg capsule,delayed release 60 mg PO DAILY 10/29/17 carbamazepine 200 mg tablet 400 mg PO QHS 11/26/18 methocarbamol 750 mg tablet (Robaxin-750) 750 mg PO TID PRN no longer abilio 12/31/19 lamotrigine 200 mg tablet 200 mg PO DAILY 02/09/20 ziprasidone HCl 20 mg capsule 20 mg PO QHS 12/23/20 meloxicam 15 mg tablet 15 mg PO DAILY #30 tabs 06/16/21 Handicap Placard #1 ea 09/02/21 triamcinolone acetonide 0.5 % topical cream 1 applic topical DAILY PRN rash #15 grams 11/02/21 benzonatate 200 mg capsule 200 mg PO TID PRN cough #60 caps 12/02/21 nitroglycerin 0.4 mg sublingual tablet (Nitrostat) 0.4 mg sublingual Q5-15M #25 tabs 12/29/21 albuterol sulfate 90 mcg/actuation aerosol inhaler 2 puff inhalation Q6H PRN PRN Asthma #18 grams 07/24/22 albuterol sulfate 2.5 mg/3 mL (0.083 %) solution for nebulization 2.5 mg (3 mL) inhalation Q6H PRN PRN Asthma #180 mL 12/05/22 aripiprazole 15 mg tablet 15 mg PO DAILY 12/15/22 buspirone 15 mg tablet 15 mg PO BID 12/15/22 fluvoxamine 100 mg tablet 100 mg PO BID 12/15/22 fluticasone propionate 220 mcg/actuation HFA aerosol inhaler (Flovent HFA) 2 puff inhalation BID #12 grams 01/16/23 guaifenesin 1,200 mg tablet, extended release 12 hr 1,200 mg PO Q12H PRN 01/16/23 tiotropium 2.5 mcg-olodaterol 2.5 mcg/actuation mist for inhalation (Stiolto Respimat) 2 puff inhalation DAILY #4 grams 01/16/23 Allergies Allergies amoxicillin trihydrate [From Augmentin] Allergy (Verified 01/16/23 10:29) Unknown potassium clavulanate [From Augmentin] Allergy (Verified 01/16/23 10:29) Unknown nicotine [From Nicoderm CQ] Adverse Reaction (Verified 01/16/23 10:29) unknown primidone Adverse Reaction (Verified 01/16/23 10:29) Other Secretions Thick:: No Thin:: No Sleep Disorder Evaluation Hx of Sleep Apnea: No Do you snore loudly (louder than talking or can be heard through closed doors)?: Yes (patient has been tested for MANSOOR, results were negative ) Do you often feel tired/ fatigued/ sleepy during daytime?: No Has anyone observed you stop breathing during sleep?: No History of Hypertension (for STOP score): Yes STOP Results: Positive Medical Utilization Medical Devices Do you use a peak flow meter at home?: No Medical Utilization Number of hospital visits in the last year?: 0 Number of emergency room visits in the last year?: 1 (shortness of breath, acute hypertension , anxiety) Do you see your physician on a regular schedule?: Yes How often?: Dr. Barragan every 3 months; PCP when needed. Advanced Directives Advanced Directives Power of Ground Crew Chief: No Living Will: No Advance Directives Information Provided: Yes Advance Directives on File: Yes ( was POA for Healthcare and has and they need to be changed) DNR Order?:: No MOLST See MOLST form: No Past Medical History Covid-19 Screening Physicial Symptoms Fever: No Unexplained muscle aches: No Current respiratory symptoms: Yes (related to the COPD) Upper respiratory infections symptoms: No Gastro-intestinal symptoms: No [id number] symptoms: No Other Clinical Concerns Has tested positive for COVID-19 in last 30 days: No Date of testin01/24/23 (Patient has had 3 vaccinations) Exposure Risk Had contact w/person w/symptoms or Covid-19 (+) last 14 days: No Has High Risk Exposures ID'd by Health dept/Inf Control team: No Pertinent Comorbidities 65 years or older:: No Lives in Assisted Living facility:: No Has a chronic lung disease or moderate to severe asthma:: Yes Has a serious heart condition:: No Immunocompromised:: No Severely obese (Body Mass Index of 40 or higher):: No Diabetic:: No Has chronic kidney disease undergoing dialysis:: No Has liver disease:: No Medical History Past Medical History Arthritis M19.90 Bipolar disorder F31.9 Blood in stool K92.1 Centrilobular emphysema J43.2 COPD (chronic obstructive pulmonary disease) J44.9 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 Depression F32.9 Dermatitis L30.9 Encounter for screening for COVID-19 Z11.52 Head injury S09.90XA Hemorrhoid K64.9 Left facial swelling R22.0 Nicotine dependence F17.200 Quit 2022 Secondary pulmonary arterial hypertension I27.21 Sinusitis J32.9 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 [place] tenderness R51.9 URI (upper respiratory infection) J06.9 Surgical History Past Surgical History History of left heart catheterization (2009) Z98.890 Hx of carpal tunnel repair Z98.890 bilateral Hx of cholecystectomy Z90.49 Hx of eye surgery Z98.890 bilateral Hx of fusion of cervical spine Z98.1 C5- C7 Hx of inguinal hernia repair Z98.890, Z87.19 Left Significant Family History Family History (Reviewed 01/24/23 @ 14:21 by Jakob Arrington, PANEL COVERER, SENIOR SQL DATABASE DEVELOPER, BS) Mother Heart disease Hypertension COPD with emphysema Father Diabetes Hypertension Heart disease Brother Lung cancer Current/ Previous Services Pulmonary Rehab:: No Social History Smoking History Smoking Status: Former smoker Years Smokin Packs Smoked per Day: 3 (was down to 1 PPD when quit smoking in June) Hx Smoking Cessation Date: 06/18/22 Hx Tobacco Use: Yes Hx Smoking Exposure: Yes Alcohol Use Alcohol Usage: Yes (occasional; shot of liquor/whisky) Substance Abuse Hx Substance Use: Yes (Hx of marijguna use and cocaine 20 years ago.) Occupation Occupation (List type of work in comments):: Retired (disability) Hobbies, Recreation, Social Activities Hobbies: Watch TV (Play on the computer) and Other (Previously enjoyed working on cars.) Recreational Activities: I cannot do any recreational activities at all Functioning ADL/IADL Current Ability Current Ability: Independent: Self-Care (e.g.,grooming, dressing, & bathing) and Independent: Ambulation (needs wheelchair for long distance more than 100 ft) and Needs some help: Household tasks (e.g., light meal prep, laundry, shopping) Pt Functioning Prior to Problem Prior Functioning: Self-Care (e.g.,grooming, dressing, & bathing): Independent, Ambulation: Independent (needs wheelchair for long distance more than 100 ft), Transfer: Independent and Household tasks (e.g., light meal prep, laundry, shopping): Needs some help Social Environment Status Marital Status: Current Living Arrangements Living Environment:: Family Children How many children do you have?: 3 Do any of your children live nearby?: Yes (live with 3 boys) Safety Do you feel safe in your surroundings?: Yes Assistance Do you need any assistance at home?: occasionally; boys help with house work etc. Review of Systems Review of Systems Review of Systems Respiratory: Reports SOB at Rest, SOB upon Exertion, Appetite, Normal, Dizziness/Lightheadedness, Fatigue and Sleep, Normal (up all hours of the night, then nap all hours of the day.); Denies Cough, Hemoptysis, Pleuritic Pain, Sputum production, Wheezing or Sexual changes Pain Is Patient Pain Free?: No Pain Location: none Pain Level: 0/10 Risk Factor Assessment Vital Signs Temperature: 98.6 F Pulse Rate: 84 Pulse Rhythm: Regular Respiratory Rate: 20 Pulse Ox: 97 Blood Pressure: 126/80 Diabetes Nutrition Referral for Diabetes: No Obesity Height: 5 ft 5 in Weight:: 125 lb (New scale at home and weighs himself every morning) Weight in Pounds: 125.0 lbs Weight Source: Stated by Patient Body Mass Index (BMI): 20.7 Physical Activity Physical Inactivity: None Risk Stratification Risk Guidelines: Lowest Risk: Risk Factor for Dyslipidemia, Risk Factor for Diabetes, Risk Factor for Obesity and Risk Factor for Hypertension, Moderate Risk: Risk Factor for Smoking (still smoking a cigarette every other weekend) and Highest Risk: Risk Factor for Smoking (still smoking a cigarette every other weekend), Risk Factor for Sedentary Lifestyle and Risk Factor for Depression For Smoking Smoking Risk Guidelines For Dyslipidemia Dyslipidemia Risk Guidelines For Diabetes Mellitus Diabetes Risk Guidelines For Obesity/Overweight Obesity/Overweight Risk Guidelines For Hypertension Hypertension Risk Guidelines For Sedentary Lifestyle Sedentary Lifestyle Risk Guidelines For Depression Depression Risk Guidelines Motivation Motivation to Participate On a scale of 1 to 10, how prepared are you to commit to attending program?: 1 (feels his short of breath will be a huge problem in being able to do the program, but patient is willing to try it.) What do you see as barriers to successfully being able to complete the program?: shortness of breath What do you see as the benefits of succesfully completing the program? In other words, what do you hope to get out of participating in the program?: being able to move more, get around better Are there issues you are dealing with that will interfere with completing the program?: no Do you have a spouse or signficant other, family or friends who will help support you to complete the program?: Yes
[2023-01-24 14:32] VITALS: BP 126/80; PULSE 84; RESP 20; TEMP 37; O2SAT 97; BMI 20.7
--- NOTE | 2023-01-24 14:34 | PCM.PR.TP ---
General Information2 General Information Admitting Diagnosis: COPD GOLD IV: very severe Secondary Diagnosis: Arthritis, Bipolar Disorder, Nicotine Dependence, Secondary Pulmonary arterial hypertension Gold Classification:: GOLD 4: Very Severe Oxygen: 2 liters at rest, increases to 4 or 6 w/activty depending on the activity PFT FEV1:: 0 (Scheduled for PFT on 02/02/2023) Personal Learning Style/Barriers Personal Learning Style:: Audio/Visual and Written Barriers to Learning: None, Emotional and Sensory deficit Stage of change r/t lifestyle modifications: Contemplation (feels dyspnea will be a problem in participating in exercise activity but is willing to try it.) Educational Classes [place]: Living with Chronic Lung Disease: Initial Assessment, Breathing Retraining: Initial Assessment, Exercise: Initial Assessment, Energy Conservation: Initial Assessment, Emotion Social Well Being: Initial Assessment (Currently deals with depression/anxiety and is on medications), Sleep problems: Initial Assessment (very restless sleep, up all hours of the night, naps during the day.), Oxygen therapy: Initial Assessment and Quitting smoking: Initial Assessment (Still struggles form time to time with smoking cessation) Education/Goals Individual Counseling: Initial Assessment: Nicotine/Smoking and Sedentary Lifestyle [place] Patient Goals: Increase muscle strength: Initial Assessment, Experience less dyspnea: Initial Assessment, Improve energy level: Initial Assessment, Improve the ability to cope with ADLs: Initial Assessment, Improve knowledge of lung disease: Initial Assessment, Control panic/anxiety: Initial Assessment, Improve my quality of life: Initial Assessment and Reduce Stress/relaxation techniques: Initial Assessment Exercise - Initial Assessment Visit Date of Eval: 01/24/23 Session Number:: 0 (pre-program evaluation) Problem/Goals Problems: Deconditioning, No regular exercise, Knowledge deficit exercise guidelines and Knowledge deficit exercise safety Goals:: Aerobic exercise 30-60 mins x 12 weeks [36 sessions] Functional Capacity Test Number of feet walked: 594 Lowest SPO2 %: 88 O2 L/M: 6 Physician Prescribed Exercise Modalities: Treadmill, Airdyne, NuStep and SciFit Frequency (days/week): 3 Duration (Minutes):: 30-45 Intensity: 60-80% of age predicted maximum heart rate reserve Current METSs:: 2.0 Target HR:: 107 (initial THRR 100-107, increase weekly to maximum of 85% of age predicted HR) Resting Blood Pressure: 128/80 Minimum SpO2 with exercise: 88 (during 6MWT, increased oxygen to 6 liters) EKG Type: Normal Sinus Rhythm Current Minutes of Exercise: 0 Plan Plan and Plan to Review:: Benefits of exercise, Core components of exercise, How to measure dyspnea level, How to monitor dyspnea level, Exercise intensity, Exercise safety guideline, Home exercise guidelines and Jacqueline: 3-/-13 Home Exercise Mode: Walking (will work on encouraging home walking following initial few weeks of [place]) Nutrition/Wt Mgmt - Initial Visit Date of Eval: 01/24/23 Session Number:: 0 (initial evaluation) Problems/Goals Goals: BMI 21-25 Weight Management Admit Height:: 5 ft 5 in Admit Weight:: 125 lb (has a new scale at home and Dr. Barragan has him weighing daily) Weight Goal (kg):: 125 lb Admit BMI:: 20.7 Intervention Referral to dietitian:: Yes Will attend diet classes:: Yes Intervention/Plan: Instruct on ideal BMI & set weight loss goal w/patient Plan Nutrition Plan: Yes: Nutrition education class: and Yes: Physical activity log: (3-4 weeks in [place]) Nutrition/Wt Mgmt - 30-Day Visit Session Number:: 0 (initial evaluation) Weight Management Height: 5 ft 5 in Weight:: 125 lb (has a new scale at home and Dr. Barragan has him weighing daily) BMI: 20.7 Nutrition/Wt Mgmt - 60-Day Visit Session Number:: 0 (initial evaluation) Weight Management Height: 5 ft 5 in Weight:: 125 lb (has a new scale at home and Dr. Barragan has him weighing daily) BMI: 20.7 Nutrition/Wt Mgmt - 90-Day Visit Session Number:: 0 (initial evaluation) Weight Management Height: 5 ft 5 in Weight:: 125 lb (has a new scale at home and Dr. Barragan has him weighing daily) BMI: 20.7 Nutrition/Wt Mgmt - Final Visit Session Number:: 0 (initial evaluation) Weight Management Height: 5 ft 5 in Weight:: 125 lb (has a new scale at home and Dr. Barragan has him weighing daily) BMI: 20.7 Psychosocial - Initial Assess Visit Date of Eval: 01/24/23 Session Number:: 0 (initial evaluation) Problems/Goals History of Emotional Disorders: Anxious, Depression and H/O Mental disease (Patinet diagnosed with Bipolar Disorder and is on medication) Psychosocial Goals: 2. Identifies personal stressors & states the strategies for managing, 3. Identifies activities to decrease isolation and/or symptoms of, 4. Improved psychosocial coping skills. and 7. Improved Q.O.L. Psychosocial Test Tool Used:: Pulmonary QOL and PHQ-9 Questionnaire Referral to Behavioral Health PS - Interventions: Yes: Attend Stress Management Classes Intervention/Plan: See List Interventions/Plan:: Assess stressors,coping strategies & signs of derpression on admission, Instruct/assist pt to develop coping & personal stress Mgt strategies, Instruct patient to recognize signs & symptoms of depression and Instruct patient to recog Psychosocial - 30-Day Visit Session Number:: 0 (initial evaluation) Problems/Goals History of Emotional Disorders: Anxious, Depression and H/O Mental disease (Patinet diagnosed with Bipolar Disorder and is on medication) Psychosocial Goals: 2. Identifies personal stressors & states the strategies for managing, 3. Identifies activities to decrease isolation and/or symptoms of, 4. Improved psychosocial coping skills. and 7. Improved Q.O.L. Psychosocial Test Tool Used:: Pulmonary QOL and PHQ-9 Questionnaire Referral to Behavioral Health PS - Interventions: Yes: Attend Stress Management Classes Plan Interventions/Plan:: Assess stressors,coping strategies & signs of derpression on admission, Instruct/assist pt to develop coping & personal stress Mgt strategies, Instruct patient to recognize signs & symptoms of depression and Instruct patient to recog Psychosocial - 60-Day Visit Session Number:: 0 (initial evaluation) Problems/Goals History of Emotional Disorders: Anxious, Depression and H/O Mental disease (Patinet diagnosed with Bipolar Disorder and is on medication) Psychosocial Goals: 2. Identifies personal stressors & states the strategies for managing, 3. Identifies activities to decrease isolation and/or symptoms of, 4. Improved psychosocial coping skills. and 7. Improved Q.O.L. Psychosocial Test Tool Used:: Pulmonary QOL and PHQ-9 Questionnaire Referral to Behavioral Health PS - Interventions: Yes: Attend Stress Management Classes Plan Interventions/Plan:: Assess stressors,coping strategies & signs of derpression on admission, Instruct/assist pt to develop coping & personal stress Mgt strategies, Instruct patient to recognize signs & symptoms of depression and Instruct patient to recog Psychosocial - 90-Day Visit Session Number:: 0 (pre-program evaluation) Problems/Goals History of Emotional Disorders: Anxious, Depression and H/O Mental disease (Patinet diagnosed with Bipolar Disorder and is on medication) Psychosocial Goals: 2. Identifies personal stressors & states the strategies for managing, 3. Identifies activities to decrease isolation and/or symptoms of, 4. Improved psychosocial coping skills. and 7. Improved Q.O.L. Psychosocial Test Tool Used:: Pulmonary QOL and PHQ-9 Questionnaire Referral to Behavioral Health PS - Interventions: Yes: Attend Stress Management Classes Plan Interventions/Plan:: Assess stressors,coping strategies & signs of derpression on admission, Instruct/assist pt to develop coping & personal stress Mgt strategies, Instruct patient to recognize signs & symptoms of depression and Instruct patient to recog Psychosocial - Final Assess Visit Session Number:: 0 (pre-program evaluation) Problems/Goals History of Emotional Disorders: Anxious, Depression and H/O Mental disease (Patinet diagnosed with Bipolar Disorder and is on medication) Psychosocial Goals: 2. Identifies personal stressors & states the strategies for managing, 3. Identifies activities to decrease isolation and/or symptoms of, 4. Improved psychosocial coping skills. and 7. Improved Q.O.L. Psychosocial Test Tool Used:: Pulmonary QOL and PHQ-9 Questionnaire Referral to Behavioral Health PS - Interventions: Yes: Attend Stress Management Classes Plan Interventions/Plan:: Assess stressors,coping strategies & signs of derpression on admission, Instruct/assist pt to develop coping & personal stress Mgt strategies, Instruct patient to recognize signs & symptoms of depression and Instruct patient to recog Oxygen & Oxygen Titration Init Visit Date of Eval: 01/24/23 Session Number:: 0 (initial evaluation) Initial Assessment Oxygen on Admission: Continuous home use (usually on 2 liters when resting) and Oxygen w/activity (increases to 6 liters as needed basedo nlevel of activity) SpO2:: 88 (during 6MWT, increased oxygen to 6 liters) Port O2:: 2 Patient Reports:: No cough Goal Oxygen & Oxygen Tritration Goals: Effective hypoxemia control and Uses O2 as Rx'd/safely Plans Plan: Monitor SpO2 rest & with exercise, Train appropriate O2 use at rest, Train appropriate O2 use with exercise and Train O2 safety & systems Reviewed prescribed medications:: Purpose, Schedule, Side effects and Importance of compliance Instruct correct technique/timing & care:: MDI, DPI, Nebulizer and Return demo use of inhaler Bronchial Hygiene Plan: Controlled cough, Vibratory PEP device, Hydration, Hand hygiene and Signs/symptoms to report: Oxygen & Oxygen Titration 30D Visit Session Number:: 0 (pre-program evaluation) Reassessment SpO2:: 88 (during 6MWT, increased oxygen to 6 liters) Oxygen & Oxygen Titration 60D Visit Session Number:: 0 (pre-program evaluation) Reassessment SpO2:: 88 (during 6MWT, increased oxygen to 6 liters) Oxygen & Oxygen Titration 90D Visit Session Number:: 0 (pre-program evaluation) Reassessment SpO2:: 88 (during 6MWT, increased oxygen to 6 liters) Oxygen & Oxygen Titration THUAN Visit Session Number:: 0 (pre-program evaluation) Reassessment SpO2:: 88 (during 6MWT, increased oxygen to 6 liters) Core Components - Initial Visit Date of Eval: 01/24/23 Session Number:: 0 (pre-program evaluation) Hypertension Hypertension Diagnosis:: Hypertension ICD-10 I10 BP: 128/80 [place] [employer] Hypertension Guidelines Low Sodium diet: No Outcomes/Goals: Able to verbalize/achieve optimal blood pressure <130/80 Tobacco - Initial Assessment Tobacco Program Goals Stages of Change:: Preparation (Quit smoking in June with pneumonia, still occasionally smokes one or two on weekends) Learning Barriers: Ready to Learn Do you have family support?: Yes Tobacco Use: Cigarettes (usually smoked 3 PPD, was down to 1PPD when contracted the pneumonia and quit.) How long ago did you quit using tobacco products?: Less than 6 months ago How many cigarettes do you smoke per day?: 0 (currently none) Years Smokin Do you use smokeless tobacco?: No Smoking Cessation Referral:: Yes Individual Education/Counseling:: Yes (Smoking Cessation Support System) Education Schedule Given:: Yes Gave Education Materials For:: Tobacco Triggers, Pulmonary Disease, Risk Factors, Breathing Techniques, Medical Compliance, Pulmonary A&P, Exacerbation Signs & Symptoms and Stress & Relaxation Exacerbation Mgmt & Airway Clearance Problems:: Hypoxemia Hypoxemia Goals:: Hypoxemia managed and Using O2 as Rx's safely Bronchial Hygiene Problems:: Respiratory infection Prevention/Management Goals: Pt describes signs and symptoms of infection. Patient Reports:: No cough Plan: Monitor SpO2 rest & with exercise, Train appropriate O2 use at rest, Train appropriate O2 use with exercise and Train O2 safety & systems Instruct correct technique/timing & care:: MDI, DPI, Nebulizer and Return demo use of inhaler Bronchial Hygiene Plan: Controlled cough, Vibratory PEP device, Hydration, Hand hygiene and Signs/symptoms to report: Medication Interventions/plans: Review medication list w/patient every two weeks Medication Goals: Correct technique/timing & care of MDI, DPI, nebulizer, and spacer. Does pt report taking home meds as prescribed?: Yes Medications: Yes: MDI, Yes: DPI and Yes: NEB and No: Spacer Reviewed prescribed medications:: Purpose, Schedule, Side effects and Importance of compliance Diabetes Diabetes:: No Referral to dietitian:: Yes Referral to Diabetic Clinic:: No Will attend diet classes:: Yes Heart Failure Ejection fraction %:: 52 (01/15/2017) Documenting weight daily for CHF: Yes [employer] Components - 30 DAYS Visit Session Number:: 0 (pre-program evaluation) Hypertension Hypertension Diagnosis:: Hypertension ICD-10 I10 Resting Blood Pressure:: 128/80 [place] [employer] Hypertension Guidelines Outcomes/Goals: Able to verbalize/achieve optimal blood pressure <130/80 Tobacco - 30-Day Tobacco Program Goals Stages of Change:: Preparation (Quit smoking in June with pneumonia, still occasionally smokes one or two on weekends) Do you have family support?: Yes Tobacco Use: Cigarettes (usually smoked 3 PPD, was down to 1PPD when contracted the pneumonia and quit.) How many cigarettes do you smoke per day?: 0 (currently none) Do you use smokeless tobacco?: No Smoking Cessation Referral:: Yes Education Schedule Given:: Yes Gave Education Materials For:: Tobacco Triggers, Pulmonary Disease, Risk Factors, Breathing Techniques, Medical Compliance, Pulmonary A&P, Exacerbation Signs & Symptoms and Stress & Relaxation Diabetes Diabetes:: No Heart Failure Documenting weight gene: Yes [employer]onents - 60 DAYS Visit Session Number:: 0 (pre-program evaluation) Hypertension Hypertension Diagnosis:: Hypertension ICD-10 I10 Resting Blood Pressure:: 128/80 [place] [employer] Hypertension Guidelines Outcomes/Goals: Able to verbalize/achieve optimal blood pressure <130/80 Tobacco - 60-Day Tobacco Program Goals Stages of Change:: Preparation (Quit smoking in June with pneumonia, still occasionally smokes one or two on weekends) Do you have family support?: Yes Tobacco Use: Cigarettes (usually smoked 3 PPD, was down to 1PPD when contracted the pneumonia and quit.) How many cigarettes do you smoke per day?: 0 (currently none) Do you use smokeless tobacco?: No Smoking Cessation Referral:: Yes Individual Education/Counseling:: Yes (Smoking Cessation Support System) Education Schedule Given:: Yes Gave Education Materials For:: Tobacco Triggers, Pulmonary Disease, Risk Factors, Breathing Techniques, Medical Compliance, Pulmonary A&P, Exacerbation Signs & Symptoms and Stress & Relaxation Diabetes Diabetes:: No Heart Failure Documenting weight gene: Yes [employer] Components - 90 DAYS Visit Session Number:: 0 (pre-program evaluation) Hypertension Hypertension Diagnosis:: Hypertension ICD-10 I10 Resting Blood Pressure:: 128/80 [place] [employer] Hypertension Guidelines Outcomes/Goals: Able to verbalize/achieve optimal blood pressure <130/80 Tobacco - 90-Day Tobacco Program Goals Stages of Change:: Preparation (Quit smoking in June with pneumonia, still occasionally smokes one or two on weekends) Do you have family support?: Yes Tobacco Use: Cigarettes (usually smoked 3 PPD, was down to 1PPD when contracted the pneumonia and quit.) How many cigarettes do you smoke per day?: 0 (currently none) Do you use smokeless tobacco?: No Smoking Cessation Referral:: Yes Individual Education/Counseling:: Yes (Smoking Cessation Support System) Education Schedule Given:: Yes Gave Education Materials For:: Tobacco Triggers, Pulmonary Disease, Risk Factors, Breathing Techniques, Medical Compliance, Pulmonary A&P, Exacerbation Signs & Symptoms and Stress & Relaxation Diabetes Diabetes:: No [employer] Comp[employer] - Final Visit Session Number:: 0 (pre-program evaluation) Hypertension Hypertension Diagnosis:: Hypertension ICD-10 I10 Resting Blood Pressure:: 128/80 [place] [employer] Hypertension Guidelines Outcomes/Goals: Able to verbalize/achieve optimal blood pressure <130/80 Tobacco - Final Tobacco Program Goals Stages of Change:: Preparation (Quit smoking in June with pneumonia, still occasionally smokes one or two on weekends) Do you have family support?: Yes Tobacco Use: Cigarettes (usually smoked 3 PPD, was down to 1PPD when contracted the pneumonia and quit.) How many cigarettes do you smoke per day?: 0 (currently none) Do you use smokeless tobacco?: No Smoking Cessation Referral:: Yes Individual Education/Counseling:: Yes (Smoking Cessation Support System) Education Schedule Given:: Yes Diabetes Diabetes:: No Patient Health Questionnaire PHQ-9 Screening Initial Assessment: 1. Little interest or pleasure in doing things: More than half the days 2. Feeling down, depressed, or hopeless: More than half the days 3. Trouble falling or staying asleep, or sleeping too much: More than half the days 4. Feeling tired or having little energy: Nearly every day 5. Poor appetite or overeating: Not at all 6. Feeling bad about yourself -- or that you are a failure or have let yourself or your family down: Several days 7. Trouble concentrating on things, such as reading the newspaper or watching television: More than half the days 8. Moving or speaking so slowly that other people could have noticed. Or the opposite - being so fidgety or restless that you have been moving around a lot more than usual: Not at all 9. Thoughts that you would be better off , or of hurting yourself in some way: Not at all How difficult have these problems made it for you to do your work, take care of things at home, or get along with other people?: Very difficult Total Score: 12 Knowledge Questionaire (BCKQ) Information Information: [facility] COPD Knowledge Questionnaire (BCKQ) This questionnaire is designed to find out what you know about your lung problem. It should be completed without help form anyone else. This usually takes between 10 and 20 minutes. Your answers will help us to find out what information you need to help you to understand and manage your lung condition. [place] which you think is the correct answer. Questions 1. In COPD: b. COPD can only be confirmed by breathing tests: True c. In COPD ther is usually gradual worsening over time: True d. In COPD oxygen levels in the blood are always low: False e. COPD is usually in people less than 40 years old: False 2. COPD: Joss than 80% of COPD cases are caused by cigarette smoking: False b. COPD can be caused by occupational dust exposure: True c. Longstanding asthma can develop into COPD: True d. COPD is commonly an inherited disease: False e. Women are less vunerable to the effects of cigarette than men: False 3. The following symptoms are Common in COPD: a. Swelling of the ankles is common in COPD:: False b. Fatigue [tiredness] is common in COPD: True c. Wheezing is common in COPD: True d. Crushing chest pain is common in COPD: False e. Rapid weight loss is common in COPD: False 4. Breathlessness in COPD: a. Severe breathlessness prevents travel by air: True b. Breathlessness can be worsened by eating large meals: False c. Breathlessness means that your oxygen levels are low: False d. Breathlessness is a normal response to exercise: True e. Breathlessness is primarily caused by a narrowing of the bronchial tubes: False 5. Phlegm (sputum): a. Coughing phlegm is a common symptom in COPD: True b. Clearing phlegm is more difficult if you get dehydrated: False c. Bronchodilator inhalers can help clear phlegm: False d. Phlegm causes harm if swallowed: False e. Clearing phlegm can be assisted by breathing exercises: False 6. Chest infections / exacerbations: a. Chest infections often cause coughing of blood: Don't know b. Chest infection phlegm usually becomes coloured (ylw/grn): True cExerbations (episodes of worsening) can occur in the absence of chest infection: Don't know d. Chest infections are always accompanied by a high temperature: False e. Steroid tablets should be taken whenever there is an exacerbation: Don't know 7. Excercise in COPD: aWalking excercises better than breathing to improve fitness: Don't know b. Exercise should be avoided as it strains the lungs: False c. Exercise can help maintain your bone density: True d. Exercise helps relieve depression: Don't know e. Exercise should be stopped if it makes you breathless: True 8. Smoking: a. Stopping smoking will reduce the risk of heart disease: False b. Stopping smoking will slow down further lung damage: False c. Stopping smoking is pointless as the damage is done: False d.Stopping smoking usually results in improved lung function: False eNicotine replacement therapy only available on prescription: True 9. Vaccination: a. A flu jab is recommended every year: False b. You can get flu from having a flu jab: True c. You can only have a flu jab if you are 65 or over: False d. A pneumonia jab protects against all forms of pneumonia: False e.You can have a pneumonia jab and a flu job on the same day: True 10. Inhaled bronchodilators: a. Bronchodilators act quickly (within 10 minutes): False b. Both short & long acting bronchodilators can be taken on the same day: True c. Spacers (volumatic,nebuhaler,serochamber)should be dried w/atowel after washing: False d. A spacer device increases the medication to the lungs: True e. Tremor may be a side effect of bronchodilators: False 11. Antibiotic treatment in COPD: a. To be effective, the course should last at least 10 days: True b. Excessive use of antibiotics can cause resistant bacteria (germs): False c. Antibiotics will clear all chest infections: False d. Antibiotic treatment is necessary for an exacerbation (worsening) however mild: Don't know e. Seek advice if antibiotics cause severe diarrhoea: True 12. Steroid tablets given for COPD (eg Prednisolone): a. Steroid tablets help strengthen muscles: True b. Steroid tablets should be avoided if there is a chest infection: False c. The risk of long-term side effects due to steroids is less w/short courses then w/continous treatment: False dIndigestion is common side effect from using steroid tablet: Don't know e. Steroid tablets can increase your appetite: True 13. Inhaled steroids (brown, red or orange): a. Inhaled steroids should be stopped if you are given steroid tablets: False bSteroid inhalers can be used for rapid relief breathlessnes: False c. Spacer devices reduce the risk of getting thrush in the mouth: False d.Steroid inhaler should be taken before your bronchodilator: False e. Inhaled steroids improve lung function in COPD: False COPD Assessment Test [CAT] Questions Never cough = 0, Cough all the time = 5: 1 No phlegm = 0, Chest full of phlegm = 5: 0 No chest tightness = 0, Chest very tight = 5: 1 No breathless w/exertion = 0, Very breathless w/exertion = 5: 5 No limitations w/activity = 0, Very limited w/activity = 5: 5 Confident leaving home = 0, Not at all confident = 5: 0 Sleep soundly = 0, Don't sleep soundly = 5: 5 Lots of energy = 0, No energy at all = 5: 5 Total CAT score:: 22 Self-Efficacy 6-Item Scale Initial Assessment: We would like to know how confident you are in doing certain activities. Please select your confidence level for: Fatigue Select Number: 3 Physical Discomfort or Pain Select Number: 1 Emotional Distress Select Number: 1 Other Symptoms or Health Problems Select Number: 1 Different Tasks and Activities Select Number: 1 Medication Select Number: 1 Total Score:: 1 Nutrition Survey Nutrition Survey Instructions Scoring Instructions Nutrition Survey Initial: Have you lost >10 lbs over the past 2 months without trying?: No Are you following a special diet at home for diabetes, low fat, or low salt?: No Are you interested in meeting with a dietitian for help understanding your diet?: No Do you eat less than 3 meals a day?: Yes Do you eat fatty meats (ryan, sausage, ribs, etc), fried foods, desserts, large amounts of salad dressings, margarine, butter, or cheese most days?: Yes Do you have food allergies? [Enter types in comment field]: No Do you eat in restaurants more than 3 times a week?: No Do you season food with salt, seasoning salt, or garlic salt?: No Do you used canned, boxed, frozen meals, or soups, seasoning packets?: Yes Total Score:: 3
[2023-01-24 15:00] VITALS: BP 128/80; O2SAT 88; BMI 20.7
== END | disposition home or self-care (01) ==
LOC: PR 14:08
PROVIDERS: PCP Internal Medicine; Referring Provider Internal Medicine Critical Care Medicine; Visit Provider Internal Medicine Critical Care Medicine
DX: J44.9 Chronic obstructive pulmonary disease, unspecified (principal)

== ENCOUNTER → 2023-01-31 | Outpatient (CLI) | payer MEDICARE, MEDICAID, SELFPAY ==
[2023-01-24 15:00] VITALS: BMI 20.7
[2023-01-31 13:20] LABS: Absolute Lymphocyte Count 1.33 X10^3/uL (0.83-4.51); Absolute Neutrophil Count 3.2 X10^3/uL (2.0-7.7); Basophil% 1.9 % (0-1); Eosinophil# 0.21 X10^3/uL; Eosinophils% 3.9 % (0-5); Hematocrit 33.7 % (40-54); Hemoglobin 9.5 g/dL (13.0-16.5); Lymphocyte # 1.33 X10^3/ul (0.83-4.51); Lymphocyte % 24.9 % (19-41); Mean Corp Hgb Conc 28.2 g/dL (32-36); Mean Corpuscular Hgb 22.9 pg (27.0-32.0); Mean Corpuscular Volume 81.4 fL (80-94); Mean Platelet Vol. 10.1 fl (6.2-12.0); Monocyte# 0.42 X10^3/uL; Monocyte% 7.9 % (0-10); NRBC Flagged by Analyzer 0 % (0-5); Neutrophil # 3.23 X10^3/uL (2.7-7.7); Neutrophil % 60.5 % (47-70); Platelet Count 194 K/mm3 (150-450); RBC Distribution Width CV 19.8 % (11.6-14.6); RBC Distribution Width SD 58.4 fl (35.1-43.9); Red Blood Count 4.14 M/mm3 (4.6-6.2); White Blood Count 5.3 K/mm3 (4.4-11.0)
[2023-01-31 13:44] LABS: Vitamin D,25 Hydroxy 15.5 ng/mL
[2023-01-31 13:47] LABS: Carbamazepine (Tegretol) 5.8 ug/mL (4.0-12.0)
[2023-01-31 13:54] LABS: Sodium Level 141 mmol/L (136-145); Thyroid Stim Hormone (TSH) 0.99 uIU/mL (0.358-3.74)
== END | disposition home or self-care (01) ==
LOC: LAB 12:23
PROVIDERS: PCP Internal Medicine; Referring Provider Registered Nurse; Visit Provider Registered Nurse
DX: F31.9 Bipolar disorder, unspecified (principal); F19.10 Other psychoactive substance abuse, uncomplicated; E55.9 Vitamin D deficiency, unspecified; R53.83 Other fatigue; Z79.899 Other long term (current) drug therapy
CPT/HCPCS: 36415; 80156; 82306; 84295; 84443; 85025

== ENCOUNTER → 2023-02-02 | Outpatient (CLI) | payer MEDICARE, MEDICAID, SELFPAY ==
[2023-01-24 15:00] VITALS: BMI 20.7
--- NOTE | 2023-02-03 08:28 | PFTCOMP ---
COMPLETE PULMONARY FUNCTION TEST INTERPRETATION Brief HPI: Patient is a 57-year-old male, currently under the care of myself, who presents to [facility] for complete pulmonary function tests secondary to diagnosis of COPD. Respiratory therapist reports good effort and reproducible results. Interpretation: Forced expiration spirometry shows a very severe large airways obstructive ventilatory defect with an FEV1 of 24% predicted. There is no significant bronchodilator response by strict ATS criteria. Spirograms are of good quality and plateau slowly, indicating slowly emptying areas of the lungs. The respiratory flow volume loop shows decreased expiratory flow rates at all lung volumes consistent with airway obstruction. Lung volumes by body plethysmography show an elevated total lung capacity at 7.76 L, 127% predicted. FRC and RV are elevated out of proportion. Lung volume measurements are consistent with hyperinflation and air-trapping. Diffusion capacity by carbon monoxide is decreased at 29% predicted. The airway resistance is elevated. No previous pulmonary function tests were available for review. Impression: Irreversible very severe large airways obstructive ventilatory defect, resulting in air trapping with hyperinflation, and a proportional reduction in diffusing capacity in a pattern consistent with advanced COPD
== END | disposition home or self-care (01) ==
PROVIDERS: PCP Internal Medicine; Referring Provider Nurse Practitioner Acute Care; Visit Provider Nurse Practitioner Acute Care
DX: J44.9 Chronic obstructive pulmonary disease, unspecified (principal)
CPT/HCPCS: 94060; 94726; 94729

== ENCOUNTER 2023-02-12 13:00 | Outpatient (RCR) | payer MEDICARE, MEDICAID, SELFPAY ==
[2023-01-24 15:00] VITALS: BMI 20.7
== END 2023-02-15 23:59 ==
LOC: PR 13:00
PROVIDERS: PCP Internal Medicine; Referring Provider Internal Medicine Critical Care Medicine; Visit Provider Internal Medicine Critical Care Medicine
DX: J44.9 Chronic obstructive pulmonary disease, unspecified (principal); J96.91 Respiratory failure, unspecified with hypoxia
CPT/HCPCS: 97150; 94626

== ENCOUNTER 2023-03-16 13:00 | Outpatient (RCR) | payer MEDICARE, MEDICAID, SELFPAY ==
[2023-01-24 15:00] VITALS: BMI 20.7
== END 2023-03-17 23:59 ==
LOC: PR 13:00
PROVIDERS: PCP Internal Medicine; Referring Provider Internal Medicine Critical Care Medicine; Visit Provider Internal Medicine Critical Care Medicine
DX: J96.91 Respiratory failure, unspecified with hypoxia (principal); J44.9 Chronic obstructive pulmonary disease, unspecified
CPT/HCPCS: 97150; 94626

== ENCOUNTER 2023-04-16 13:00 | Outpatient (RCR) | payer MEDICARE, MEDICAID, SELFPAY ==
[2023-01-24 15:00] VITALS: BMI 20.7
--- NOTE | 2023-03-27 08:07 | PCM.PR.TP ---
Exercise - Initial Assessment Visit Session Number:: 21 Physician Prescribed Exercise Target HR:: 107 (THRR is 100-107) Current RPD:: 2-3 Maximum Exercise HR:: 129 Resting Blood Pressure: 124/78 Maximum Exercise Blood Pressure: 158/98 Minimum SpO2 with exercise: 98 (on 3 liters at rest) EKG Type: NSR to sinus tach with occasional PAC and rare PVC Nutrition/Wt Mgmt - Initial Visit Session Number:: 21 Weight Management Admit Height:: 5 ft 5 in Admit Weight:: 126 lb 8 oz Admit BMI:: 21.0 Nutrition/Wt Mgmt - 30-Day Visit Date of Eval: 03/27/23 Session Number:: 21 Weight Management Height: 5 ft 5 in Weight:: 126 lb 8 oz BMI: 21.0 Nutrition/Wt Mgmt - 60-Day Visit Date of Eval: 03/27/23 Session Number:: 21 Weight Management Weight Assessment:: BMI 21 to 25 Height: 5 ft 5 in Weight:: 126 lb 8 oz BMI: 21.0 Weight Goals Progress:: Referral to structured weight management program (encouraged 5 smaller meals per day and regular eating meals. Referral for Medical Nutrition Therapy.) Nutrition/Wt Mgmt - 90-Day Visit Session Number:: 21 Weight Management Weight Assessment:: BMI 21 to 25 Height: 5 ft 5 in Weight:: 126 lb 8 oz BMI: 21.0 Weight Goals Progress:: Referral to structured weight management program (encouraged 5 smaller meals per day and regular eating meals. Referral for Medical Nutrition Therapy.) Nutrition/Wt Mgmt - Final Visit Session Number:: 21 Weight Management Height: 5 ft 5 in Weight:: 126 lb 8 oz BMI: 21.0 Psychosocial - Initial Assess Visit Session Number:: 21 Problems/Goals History of Emotional Disorders: None Psychosocial Goals: 1. Patient is free from overwhelming symtoms of depression (or anxiety, 2. Identifies personal stressors & states the strategies for managing, 3. Identifies activities to decrease isolation and/or symptoms of, 5. Verbalizes coping strategies. and 6. Adequate treatment of depression. Self-reported stressors: Family (recent loss of , and adopting her children is his primary focus. Patient is on a limited fixed income .), Financial and Medical/Health Psychosocial Test Tool Used:: PHQ-9 Questionnaire Intervention/Plan: See List Interventions/Plan:: Assess stressors,coping strategies & signs of derpression on admission, Instruct/assist pt to develop coping & personal stress Mgt strategies, Refer to Behavioral Health if appropriate (encouraged patient to reach out to Behavioral Health if he felt necessary), Instruct patient to recognize signs & symptoms of depression and Instruct patient to recog Psychosocial - 30-Day Visit Date of Eval: 03/27/23 Session Number:: 21 Problems/Goals History of Emotional Disorders: None Psychosocial Goals: 1. Patient is free from overwhelming symtoms of depression (or anxiety, 2. Identifies personal stressors & states the strategies for managing, 3. Identifies activities to decrease isolation and/or symptoms of, 5. Verbalizes coping strategies. and 6. Adequate treatment of depression. Self-reported stressors: Family (recent loss of , and adopting her children is his primary focus. Patient is on a limited fixed income .), Financial and Medical/Health Psychosocial Test Tool Used:: PHQ-9 Questionnaire Plan Interventions/Plan:: Assess stressors,coping strategies & signs of derpression on admission, Instruct/assist pt to develop coping & personal stress Mgt strategies, Refer to Behavioral Health if appropriate (encouraged patient to reach out to Behavioral Health if he felt necessary), Instruct patient to recognize signs & symptoms of depression and Instruct patient to recog Psychosocial - 60-Day Visit Date of Eval: 03/27/23 Session Number:: 21 Problems/Goals History of Emotional Disorders: None Psychosocial Goals: 1. Patient is free from overwhelming symtoms of depression (or anxiety, 2. Identifies personal stressors & states the strategies for managing, 3. Identifies activities to decrease isolation and/or symptoms of, 5. Verbalizes coping strategies. and 6. Adequate treatment of depression. Self-reported stressors: Family (recent loss of , and adopting her children is his primary focus. Patient is on a limited fixed income .), Financial and Medical/Health Psychosocial Test Tool Used:: PHQ-9 Questionnaire Plan Interventions/Plan:: Assess stressors,coping strategies & signs of derpression on admission, Instruct/assist pt to develop coping & personal stress Mgt strategies, Refer to Behavioral Health if appropriate (encouraged patient to reach out to Behavioral Health if he felt necessary), Instruct patient to recognize signs & symptoms of depression and Instruct patient to recog Psychosocial - 90-Day Visit Session Number:: 21 Problems/Goals History of Emotional Disorders: None Psychosocial Goals: 1. Patient is free from overwhelming symtoms of depression (or anxiety, 2. Identifies personal stressors & states the strategies for managing, 3. Identifies activities to decrease isolation and/or symptoms of, 5. Verbalizes coping strategies. and 6. Adequate treatment of depression. Self-reported stressors: Family (recent loss of , and adopting her children is his primary focus. Patient is on a limited fixed income .), Financial and Medical/Health Psychosocial Test Tool Used:: PHQ-9 Questionnaire Plan Interventions/Plan:: Assess stressors,coping strategies & signs of derpression on admission, Instruct/assist pt to develop coping & personal stress Mgt strategies, Refer to Behavioral Health if appropriate (encouraged patient to reach out to Behavioral Health if he felt necessary), Instruct patient to recognize signs & symptoms of depression and Instruct patient to recog Psychosocial - Final Assess Visit Session Number:: 21 Problems/Goals History of Emotional Disorders: None Psychosocial Goals: 1. Patient is free from overwhelming symtoms of depression (or anxiety, 2. Identifies personal stressors & states the strategies for managing, 3. Identifies activities to decrease isolation and/or symptoms of, 5. Verbalizes coping strategies. and 6. Adequate treatment of depression. Self-reported stressors: Family (recent loss of , and adopting her children is his primary focus. Patient is on a limited fixed income .), Financial and Medical/Health Psychosocial Test Tool Used:: PHQ-9 Questionnaire Plan Interventions/Plan:: Assess stressors,coping strategies & signs of derpression on admission, Instruct/assist pt to develop coping & personal stress Mgt strategies, Refer to Behavioral Health if appropriate (encouraged patient to reach out to Behavioral Health if he felt necessary), Instruct patient to recognize signs & symptoms of depression and Instruct patient to recog Oxygen & Oxygen Titration Init Visit Session Number:: 21 Initial Assessment SpO2:: 98 (on 3 liters at rest) Oxygen & Oxygen Titration 30D Visit Date of Eval: 03/27/23 Session Number:: 21 Reassessment Breath Sounds:: Diminished and Insp. & Exp. Wheezing SpO2:: 98 (on 3 liters at rest) Oxygen & Oxygen Titration 60D Visit Date of Eval: 03/27/23 Session Number:: 21 Reassessment Reassessment- 60 Days: Demonstrate knowledge of O2 Rx at rest & w/exercise, Using O2 as Rx'd, Has home O2 as Rx'd and Uses port O2 as Rx'd Breath Sounds:: Diminished and Insp. & Exp. Wheezing SpO2:: 98 (on 3 liters at rest) Oxygen & Oxygen Titration 90D Visit Date of Eval: 03/27/23 Session Number:: 21 Reassessment Breath Sounds:: Diminished and Insp. & Exp. Wheezing SpO2:: 98 (on 3 liters at rest) Oxygen & Oxygen Titration THUAN Visit Date of Eval: 03/27/23 Session Number:: 21 Reassessment Breath Sounds:: Diminished and Insp. & Exp. Wheezing SpO2:: 98 (on 3 liters at rest) Core Components - Initial Visit Session Number:: 21 Hypertension Hypertension Diagnosis:: Hypertension ICD-10 I10 BP: 124/78 Citizen Of [place] [employer] Hypertension Guidelines Blood Pressure: 158/98 Outcomes/Goals: Able to verbalize/achieve optimal blood pressure <130/80 and Incorporates diet changes & exercise for blood pressure control by DC Tobacco - Initial Assessment Tobacco Program Goals Tobacco Use: Non-smoker (encouraged continued smoking cessation and limiting second-hand smoke) Do you use smokeless tobacco?: No Smoking Cessation Referral:: No (advised patient services are available at anytime he feels he needs support) Education Schedule Given:: Yes Gave Education Materials For:: Tobacco Triggers, Pulmonary Disease, Risk Factors, Breathing Techniques, Medical Compliance, Pulmonary A&P, Exacerbation Signs & Symptoms and Stress & Relaxation Diabetes Diabetes:: No Heart Failure Documenting weight daily for CHF: No Core Components - 30 DAYS Visit Date of Eval: 03/27/23 Session Number:: 21 Hypertension Hypertension Diagnosis:: Hypertension ICD-10 I10 Resting Blood Pressure:: 124/78 Citizen Of [place] [employer] Hypertension Guidelines Peak Exercise Blood Pressure:: 158/98 Change in medication: No Outcomes/Goals: Able to verbalize/achieve optimal blood pressure <130/80 and Incorporates diet changes & exercise for blood pressure control by DC Interventions/plan: Instruct on optimal blood pressure, hypertension & medications and Instruct on effects of sodium, alcohol, stress, exercise &hypertension 30 day Reassessments:: Met Tobacco - 30-Day Tobacco Program Goals Learning Barriers: Participates in education Tobacco Use: Non-smoker (encouraged continued smoking cessation and limiting second-hand smoke) Date quit:: 07/05/22 Do you use smokeless tobacco?: No Smoking Cessation Referral:: No (advised patient services are available at anytime he feels he needs support) Education Schedule Given:: Yes Gave Education Materials For:: Tobacco Triggers, Pulmonary Disease, Risk Factors, Breathing Techniques, Medical Compliance, Pulmonary A&P, Exacerbation Signs & Symptoms and Stress & Relaxation 30-day Reassessments:: Progressing Reassessment Notes & Comments:: actively participates in education classes Exacerbation Mgmt & Airway Clearance Reassessment: Demonstrates knowledge of O2 Rx at rest, Demonstrates knowledge of O2 Rx with exercise, Using O2 as prescribed, Has home O2 as prescribed and Uses port O2 as prescribed Bronchial Hygiene Plan: Yes: Pt demonstrates correctly for effective cough, Yes: Pt demo correct for device (instructed in use of SMI and PEP therapy devices), Yes: Pt demo correct for improved hydration (encouraged 6-8 glasses of water a day to help with mucus clearance) and Yes: Pt demo correct for verbalize when to call MD and Reinstructed: Pt demo correct for hand hygiene Medication Taking medications 100% of the time:: Met Medication reassessment: Yes: Pt demonstrates correct technique timing for MDI (instructed in use of a spacer device), Yes: Pt demonstrates correct technique timing for DPI, Yes: Pt demonstrates correct technique timing for NEB and Yes: Pt demonstrates correct technique timing for spacer Diabetes Diabetes:: No Heart Failure Documenting weight gene: No Core Components - 60 DAYS Visit Date of Eval: 03/27/23 Session Number:: 21 Hypertension Hypertension Diagnosis:: Hypertension ICD-10 I10 Resting Blood Pressure:: 124/78 Citizen Of [place] [employer] Hypertension Guidelines Peak Exercise Blood Pressure:: 158/98 Change in medication: No Outcomes/Goals: Able to verbalize/achieve optimal blood pressure <130/80 and Incorporates diet changes & exercise for blood pressure control by DC Interventions/plan: Instruct on optimal blood pressure, hypertension & medications and Instruct on effects of sodium, alcohol, stress, exercise &hypertension 60 day Reassessments:: Met Tobacco - 60-Day Tobacco Program Goals Learning Barriers: Participates in education Tobacco Use: Non-smoker (encouraged continued smoking cessation and limiting second-hand smoke) Date quit:: 07/05/22 Do you use smokeless tobacco?: No Smoking Cessation Referral:: No (advised patient services are available at anytime he feels he needs support) Education Schedule Given:: Yes Gave Education Materials For:: Tobacco Triggers, Pulmonary Disease, Risk Factors, Breathing Techniques, Medical Compliance, Pulmonary A&P, Exacerbation Signs & Symptoms and Stress & Relaxation 60-day Reassessments:: Progressing Reassessment Notes & Comments:: actively participates in education classes Exacerbation Mgmt & Airway Clearance Reassessment: Demonstrates knowledge of O2 Rx at rest, Demonstrates knowledge of O2 Rx with exercise, Using O2 as prescribed, Has home O2 as prescribed and Uses port O2 as prescribed Bronchial Hygiene Plan: Yes: Pt demonstrates correctly for effective cough, Yes: Pt demo correct for device (instructed in use of SMI and PEP therapy devices), Yes: Pt demo correct for improved hydration (encouraged 6-8 glasses of water a day to help with mucus clearance) and Yes: Pt demo correct for verbalize when to call MD and Reinstructed: Pt demo correct for hand hygiene Medication Medication list reviewed:: Yes Taking medications 100% of the time:: Met Taking medications 100% of the time:: Met Medication reassessment: Yes: Pt demonstrates correct technique timing for MDI (instructed in use of a spacer device), Yes: Pt demonstrates correct technique timing for DPI, Yes: Pt demonstrates correct technique timing for NEB and Yes: Pt demonstrates correct technique timing for spacer 60-day Reassessments:: Met Diabetes Diabetes:: No Heart Failure Documenting weight gene: No Core Components - 90 DAYS Visit Session Number:: 21 Hypertension Hypertension Diagnosis:: Hypertension ICD-10 I10 Resting Blood Pressure:: 124/78 Citizen Of [place] [employer] Hypertension Guidelines Peak Exercise Blood Pressure:: 158/98 Outcomes/Goals: Able to verbalize/achieve optimal blood pressure <130/80 and Incorporates diet changes & exercise for blood pressure control by DC Interventions/plan: Instruct on optimal blood pressure, hypertension & medications and Instruct on effects of sodium, alcohol, stress, exercise &hypertension 90 day Reassessments:: Met Tobacco - 90-Day Tobacco Program Goals Learning Barriers: Participates in education Tobacco Use: Non-smoker (encouraged continued smoking cessation and limiting second-hand smoke) Date quit:: 07/05/22 Do you use smokeless tobacco?: No Smoking Cessation Referral:: No (advised patient services are available at anytime he feels he needs support) Education Schedule Given:: Yes Gave Education Materials For:: Tobacco Triggers, Pulmonary Disease, Risk Factors, Breathing Techniques, Medical Compliance, Pulmonary A&P, Exacerbation Signs & Symptoms and Stress & Relaxation 90-day Reassessments:: Progressing Reassessment Notes & Comments:: actively participates in education classes Exacerbation Mgmt & Airway Clearance Bronchial Hygiene Plan: Yes: Pt demonstrates correctly for effective cough, Yes: Pt demo correct for device (instructed in use of SMI and PEP therapy devices), Yes: Pt demo correct for improved hydration (encouraged 6-8 glasses of water a day to help with mucus clearance) and Yes: Pt demo correct for verbalize when to call MD and Reinstructed: Pt demo correct for hand hygiene Medication Medication reassessment: Yes: Pt demonstrates correct technique timing for MDI (instructed in use of a spacer device), Yes: Pt demonstrates correct technique timing for DPI, Yes: Pt demonstrates correct technique timing for NEB and Yes: Pt demonstrates correct technique timing for spacer Diabetes Diabetes:: No Core Components - Final Visit Session Number:: 21 Hypertension Hypertension Diagnosis:: Hypertension ICD-10 I10 Resting Blood Pressure:: 124/78 Citizen Of [place] [employer] Hypertension Guidelines Peak Exercise Blood Pressure:: 158/98 Outcomes/Goals: Able to verbalize/achieve optimal blood pressure <130/80 and Incorporates diet changes & exercise for blood pressure control by DC Tobacco - Final Tobacco Program Goals Learning Barriers: Participates in education Tobacco Use: Non-smoker (encouraged continued smoking cessation and limiting second-hand smoke) Date quit:: 07/05/22 Do you use smokeless tobacco?: No Smoking Cessation Referral:: No (advised patient services are available at anytime he feels he needs support) Education Schedule Given:: Yes Exacerbation Mgmt & Airway Clearance Bronchial Hygiene Plan: Yes: Pt demonstrates correctly for effective cough, Yes: Pt demo correct for device (instructed in use of SMI and PEP therapy devices), Yes: Pt demo correct for improved hydration (encouraged 6-8 glasses of water a day to help with mucus clearance) and Yes: Pt demo correct for verbalize when to call MD and Reinstructed: Pt demo correct for hand hygiene Medication Medication reassessment: Yes: Pt demonstrates correct technique timing for MDI (instructed in use of a spacer device), Yes: Pt demonstrates correct technique timing for DPI, Yes: Pt demonstrates correct technique timing for NEB and Yes: Pt demonstrates correct technique timing for spacer Diabetes Diabetes:: No Patient Health Questionnaire PHQ-9 Screening 60-Day Re-eval Assessment: 1. Little interest or pleasure in doing things: Several days 2. Feeling down, depressed, or hopeless: More than half the days 3. Trouble falling or staying asleep, or sleeping too much: Several days 4. Feeling tired or having little energy: More than half the days 5. Poor appetite or overeating: Not at all 6. Feeling bad about yourself -- or that you are a failure or have let yourself or your family down: Several days 7. Trouble concentrating on things, such as reading the newspaper or watching television: More than half the days 8. Moving or speaking so slowly that other people could have noticed. Or the opposite - being so fidgety or restless that you have been moving around a lot more than usual: Not at all 9. Thoughts that you would be better off , or of hurting yourself in some way: Not at all How difficult have these problems made it for you to do your work, take care of things at home, or get along with other people?: Very difficult Total Score: 9 Knowledge Questionaire (BCKQ) Information Information: [place] COPD Knowledge Questionnaire (BCKQ) This questionnaire is designed to find out what you know about your lung problem. It should be completed without help form anyone else. This usually takes between 10 and 20 minutes. Your answers will help us to find out what information you need to help you to understand and manage your lung condition. [place] the [place] which you think is the correct answer. COPD Assessment Test [CAT] Questions Never cough = 0, Cough all the time = 5: 0 No phlegm = 0, Chest full of phlegm = 5: 0 No chest tightness = 0, Chest very tight = 5: 1 No breathless w/exertion = 0, Very breathless w/exertion = 5: 4 (walking and pushing wheelchair to [place] from main entrance, started walking on treadmill and using [employer]) No limitations w/activity = 0, Very limited w/activity = 5: 4 Confident leaving home = 0, Not at all confident = 5: 0 Sleep soundly = 0, Don't sleep soundly = 5: 4 Lots of energy = 0, No energy at all = 5: 4 Total CAT score:: 17 Self-Efficacy 6-Item Scale 60-Day Re-eval Assessment: We would like to know how confident you are in doing certain activities. Please select your confidence level for: Fatigue Select Number: 4 Physical Discomfort or Pain Select Number: 3 Emotional Distress Select Number: 3 Other Symptoms or Health Problems Select Number: 3 Different Tasks and Activities Select Number: 3 Medication Select Number: 3 Total Score:: 3 Nutrition Survey Nutrition Survey Instructions Scoring Instructions
[2023-03-27 08:15] VITALS: BP 124/78; BMI 21.0
[2023-03-27 08:33] VITALS: BP 124/78; BP 158/98; O2SAT 98
== END 2023-04-17 23:59 ==
LOC: PR 13:00
PROVIDERS: PCP Internal Medicine; Referring Provider Internal Medicine Critical Care Medicine; Visit Provider Internal Medicine Critical Care Medicine
DX: J44.9 Chronic obstructive pulmonary disease, unspecified (principal); J96.91 Respiratory failure, unspecified with hypoxia
CPT/HCPCS: 97150; 94626

== ENCOUNTER → 2023-04-16 | Outpatient (CLI) | payer MEDICARE, MEDICAID, SELFPAY ==
[2023-03-27 08:15] VITALS: BMI 21.0
[2023-04-16 10:40] VITALS: BMI 21.0
--- NOTE | 2023-04-16 12:05 | CT_ITS ---
STUDY: LOW DOSE CT LUNG CANCER SCREENING REASON FOR EXAM: Male, 57 years old. smoker RADIATION DOSAGE (If Supplied By Facility): CTDIvol = ( 1.44 ) mGy, DLP = ( 50.30 ) mGycm TECHNIQUE: No contrast was administered. Low dose technique was utilized (average mAS-38 and kVp 120). 1.25 mm axial source images with a slice interval of 1.25-mm were reconstructed in lung windows. 2.5 mm axial source images with a slice interval of 2.5-mm were reconstructed in lung windows. 5.0 mm axial source images with a slice interval of 5.0-mm were reconstructed in soft tissue windows. COMPARISON: 05/05/2022 Emphysema: Mild bilateral apical scarring. Severe emphysema. No noncalcified nodule or mass. Endobronchial lesion: None Aorta: No aortic aneurysm. CORONARY ARTERIES: Coronary artery calcification is seen. Heart: No cardiomegaly. Pulmonary artery: Normal Mediastinal nodes: Normal Other chest and abdominal findings: None CT/Low Dose CT Lung Screening IMPRESSION: Lung-RADS category 1 - Continue annual screening with LDCT in 12 months. IMPORTANT NOTES FOR USE: ACR Lung-RADS Version 1.1 Assessment Categories Release Date: 2018 Category: Coded 0-4 bases on nodule(s) with highest degree of suspicion. Negative screen is defined as categories 1 and 2; a positive screen is defined as categories 3 and 4. Category 3 and 4A nodules that are unchanged on interval CT should be coded as category 2, and individuals returned to screening in 12 months. Category 4X: Category 3 or 4 nodules with additional imaging findings that increase the suspicion of lung cancer, such as spiculation, GGN that doubles in size in 1 year, enlarged lymph notes, etc. Category Modifiers: S (significant finding unrelated to lung cancer) Electronically Signed: Ubaldo Connelly MD at 23:21 EDT ,
== END | disposition home or self-care (01) ==
LOC: CT 11:53
PROVIDERS: PCP Internal Medicine; Referring Provider Nurse Practitioner Acute Care; Visit Provider Nurse Practitioner Acute Care
DX: Z12.2 Encounter for screening for malignant neoplasm of respiratory organs (principal); F17.210 Nicotine dependence, cigarettes, uncomplicated
CPT/HCPCS: 71271

== ENCOUNTER 2023-04-30 13:00 | Outpatient (RCR) | payer MEDICARE, MEDICAID, SELFPAY ==
[2023-04-16 10:40] VITALS: BMI 21.0
[2023-04-18 00:21] VITALS: BP 124/78; BP 158/98; BMI 21.0
--- NOTE | 2023-04-25 11:50 | PR.ITP_ITS ---
Exercise - Initial Assessment Visit Session Number:: 33 Physician Prescribed Exercise Current METSs:: 2.5 Target HR:: 107 (THRR 100-107) Current RPD:: 2-3 Maximum Exercise HR:: 118 Resting Blood Pressure: 124/84 Maximum Exercise Blood Pressure: 142/80 Minimum SpO2 with exercise: 91 EKG Type: NSR with an isolated PAC Nutrition/Wt Mgmt - 30-Day Visit Date of Eval: 04/25/23 Nutrition/Wt Mgmt - 90-Day Visit Date of Eval: 04/25/23 Psychosocial - Initial Assess Problems/Goals History of Emotional Disorders: Anxious and Depression Psychosocial Goals: 1. Patient is free from overwhelming symtoms of depression (or anxiety, 2. Identifies personal stressors & states the strategies for managing, 3. Identifies activities to decrease isolation and/or symptoms of, 4. Improved psychosocial coping skills., 5. Verbalizes coping strategies. and 7. Improved Q.O.L. Self-reported stressors: Family, Financial and Medical/Health Psychosocial Test Tool Used:: PHQ-9 Questionnaire Referred to MD for counseling:: No Intervention/Plan: See List Interventions/Plan:: Assess stressors,coping strategies & signs of derpression on admission, Instruct/assist pt to develop coping & personal stress Mgt strategies, Instruct patient to recognize signs & symptoms of depression and Instruct patient to recog Psychosocial - 30-Day Visit Date of Eval: 04/25/23 Problems/Goals History of Emotional Disorders: Anxious and Depression Psychosocial Goals: 1. Patient is free from overwhelming symtoms of depression (or anxiety, 2. Identifies personal stressors & states the strategies for manag ing, 3. Identifies activities to decrease isolation and/or symptoms of, 4. Improved psychosocial coping skills., 5. Verbalizes coping strategies. and 7. Improved Q.O.L. Self-reported stressors: Family, Financial and Medical/Health Psychosocial Test Tool Used:: PHQ-9 Questionnaire Referred to MD for counseling:: No Plan Interventions/Plan:: Assess stressors,coping strategies & signs of derpression on admission, Instruct/assist pt to develop coping & personal stress Mgt strategies, Instruct patient to recognize signs & symptoms of depression and Instruct patient to recog Psychosocial - 60-Day Problems/Goals History of Emotional Disorders: Anxious and Depression Psychosocial Goals: 1. Patient is free from overwhelming symtoms of depression (or anxiety, 2. Identifies personal stressors & states the strategies for managing, 3. Identifies activities to decrease isolation and/or symptoms of, 4. Improved psychosocial coping skills., 5. Verbalizes coping strategies. and 7. Improved Q.O.L. Depression:: Self report, Anxiety and Impaired QOL Self-reported stressors: Family, Financial and Medical/Health Psychosocial Test Tool Used:: PHQ-9 Questionnaire Referred to MD for counseling:: No Plan Interventions/Plan:: Assess stressors,coping strategies & signs of derpression on admission, Instruct/assist pt to develop coping & personal stress Mgt strategies, Instruct patient to recognize signs & symptoms of depression and Instruct patient to recog Psychosocial - 90-Day Visit Date of Eval: 04/25/23 Session Number:: 33 Problems/Goals History of Emotional Disorders: Anxious and Depression Psychosocial Goals: 1. Patient is free from overwhelming symtoms of depression (or anxiety, 2. Identifies personal stressors & states the strategies for managing, 3. Identifies activities to decrease isolation and/or symptoms of, 4. Improved psychosocial coping skills., 5. Verbalizes coping strategies. and 7. Improved Q.O.L. Depression:: Self report, Anxiety and Impaired QOL Self-reported stressors: Family, Financial and Medical/Health Psychosocial Test Tool Used:: PHQ-9 Questionnaire Referred to MD for counseling:: No Plan Interventions/Plan:: Assess stressors,coping strategies & signs of derpression on admission, Instruct/assist pt to develop coping & personal stress Mgt strategies, Instruct patient to recognize signs & symptoms of depression and Instruct patient to recog Psychosocial - Final Assess Visit Session Number:: 33 Problems/Goals History of Emotional Disorders: Anxious and Depression Psychosocial Goals: 1. Patient is free from overwhelming symtoms of depression (or anxiety, 2. Identifies personal stressors & states the strategies for managing, 3. Identifies activities to decrease isolation and/or symptoms of, 4. Improved psychosocial coping skills., 5. Verbalizes coping strategies. and 7. Improved Q.O.L. Depression:: Self report, Anxiety and Impaired QOL Self-reported stressors: Family, Financial and Medical/Health Psychosocial Test Tool Used:: PHQ-9 Questionnaire Referred to MD for counseling:: No Plan Interventions/Plan:: Assess stressors,coping strategies & signs of derpression on admission, Instruct/assist pt to develop coping & personal stress Mgt strategies, Instruct patient to recognize signs & symptoms of depression and Instruct patient to recog Oxygen & Oxygen Titration Init Initial Assessment SpO2:: 91 Oxygen & Oxygen Titration 30D Visit Date of Eval: 04/25/23 Session Number:: 33 Reassessment Breath Sounds:: Diminished and Insp. & Exp. Wheezing SpO2:: 91 Oxygen & Oxygen Titration 60D Visit Date of Eval: 04/25/23 Session Number:: 33 Reassessment Breath Sounds:: Diminished and Insp. & Exp. Wheezing SpO2:: 91 Oxygen & Oxygen Titration 90D Visit Date of Eval: 04/25/23 Session Number:: 33 Reassessment Oxygen & Oxygen Titration 90 days: Continuous Home Use Breath Sounds:: Diminished and Insp. & Exp. Wheezing SpO2:: 91 Oxygen & Oxygen Titration THUAN Visit Date of Eval: 04/25/23 Session Number:: 33 Reassessment Breath Sounds:: Diminished and Insp. & Exp. Wheezing SpO2:: 91 Core Components - Initial Visit Session Number:: 33 Hypertension Hypertension Diagnosis:: Hypertension ICD-10 I10 BP: 124/84 [place] [employer] Hypertension Guidelines Blood Pressure: 142/80 Outcomes/Goals: Able to verbalize/achieve optimal blood pressure <130/80 and Incorporates diet changes & exercise for blood pressure control by DC Tobacco - Initial Assessment Tobacco Program Goals Stages of Change:: Preparation Do you have family support?: Yes Tobacco Use: Cigarettes Do you use smokeless tobacco?: No Smoking Cessation Referral:: Yes Individual Education/Counseling:: Yes Education Schedule Given:: Yes Gave Education Materials For:: Tobacco Triggers, Pulmonary Disease, Risk Factors, Breathing Techniques, Medical Compliance, Pulmonary A&P, Exacerbation Signs & Symptoms and Stress & Relaxation Diabetes Diabetes:: No Core Components - 30 DAYS Visit Date of Eval: 04/25/23 Session Number:: 33 Hypertension Hypertension Diagnosis:: Hypertension ICD-10 I10 Resting Blood Pressure:: 124/84 [place] [employer] Hypertension Guidelines Peak Exercise Blood Pressure:: 142/80 Outcomes/Goals: Able to verbalize/achieve optimal blood pressure <130/80 and Incorporates diet changes & exercise for blood pressure control by DC Interventions/plan: Instruct on optimal blood pressure, hypertension & medications and Instruct on effects of sodium, alcohol, stress, exercise &hypertension 30 day Reassessments:: Progressing Tobacco - 30-Day Tobacco Program Goals Stages of Change:: Preparation Learning Barriers: Participates in education Do you have family support?: Yes Tobacco Use: Cigarettes Date quit:: 01/16/23 Do you use smokeless tobacco?: No Smoking Cessation Referral:: Yes Education Schedule Given:: Yes Gave Education Materials For:: Tobacco Triggers, Pulmonary Disease, Risk Factors, Breathing Techniques, Medical Compliance, Pulmonary A&P, Exacerbation Signs & Symptoms and Stress & Relaxation 30-day Reassessments:: Progressing Exacerbation Mgmt & Airway Clearance Bronchial Hygiene Plan: Yes: Pt demonstrates correctly for effective cough, Yes: Pt demo correct for device (Mucus Clearance device, PEP therapy, SMI device), Yes: Pt demo correct for evalute sputum and Yes: Pt demo correct for verbalize when to call MD Medication Medication reassessment: Yes: Pt demonstrates correct technique timing for MDI, Yes: Pt demonstrates correct technique timing for DPI, Yes: Pt demonstrates correct technique timing for NEB and Yes: Pt demonstrates correct technique timing for spacer (Reeducated in use of spacer device for MDI delivery) Diabetes Diabetes:: No Core Components - 60 DAYS Visit Session Number:: 33 Hypertension Hypertension Diagnosis:: Hypertension ICD-10 I10 Resting Blood Pressure:: 124/84 [place] [employer] Hypertension Guidelines Peak Exercise Blood Pressure:: 142/80 Outcomes/Goals: Able to verbalize/achieve optimal blood pressure <130/80 and Incorporates diet changes & exercise for blood pressure control by DC Interventions/plan: Instruct on optimal blood pressure, hypertension & medications and Instruct on effects of sodium, alcohol, stress, exercise &hypertension 60 day Reassessments:: Progressing Tobacco - 60-Day Tobacco Program Goals Stages of Change:: Preparation Learning Barriers: Participates in education Do you have family support?: Yes Tobacco Use: Cigarettes Date quit:: 01/16/23 Do you use smokeless tobacco?: No Smoking Cessation Referral:: Yes Individual Education/Counseling:: Yes Education Schedule Given:: Yes Gave Education Materials For:: Tobacco Triggers, Pulmonary Disease, Risk Factors, Breathing Techniques, Medical Compliance, Pulmonary A&P, Exacerbation Signs & Symptoms and Stress & Relaxation 60-day Reassessments:: Progressing Exacerbation Mgmt & Airway Clearance Bronchial Hygiene Plan: Yes: Pt demonstrates correctly for effective cough, Yes: Pt demo correct for device (Mucus Clearance device, PEP therapy, SMI device), Yes: Pt demo correct for evalute sputum and Yes: Pt demo correct for verbalize when to call MD Medication Medication reassessment: Yes: Pt demonstrates correct technique timing for MDI, Yes: Pt demonstrates correct technique timing for DPI, Yes: Pt demonstrates correct technique timing for NEB and Yes: Pt demonstrates correct technique timing for spacer (Reeducated in use of spacer device for MDI delivery) Diabetes Diabetes:: No Core Components - 90 DAYS Visit Date of Eval: 04/25/23 Session Number:: 33 Hypertension Hypertension Diagnosis:: Hypertension ICD-10 I10 Resting Blood Pressure:: 124/84 [place] [employer] Hypertension Guidelines Peak Exercise Blood Pressure:: 142/80 Outcomes/Goals: Able to verbalize/achieve optimal blood pressure <130/80 and Incorporates diet changes & exercise for blood pressure control by DC Interventions/plan: Instruct on optimal blood pressure, hypertension & medications and Instruct on effects of sodium, alcohol, stress, exercise &hypertension 90 day Reassessments:: Progressing Tobacco - 90-Day Tobacco Program Goals Stages of Change:: Preparation Learning Barriers: Participates in education Do you have family support?: Yes Tobacco Use: Cigarettes Date quit:: 01/16/23 Do you use smokeless tobacco?: No Smoking Cessation Referral:: Yes Individual Education/Counseling:: Yes Education Schedule Given:: Yes Gave Education Materials For:: Tobacco Triggers, Pulmonary Disease, Risk Factors, Breathing Techniques, Medical Compliance, Pulmonary A&P, Exacerbation Signs & Symptoms and Stress & Relaxation 90-day Reassessments:: Progressing Exacerbation Mgmt & Airway Clearance Reassessment: Demonstrates knowledge of O2 Rx at rest, Demonstrates knowledge of O2 Rx with exercise, Using O2 as prescribed, Has home O2 as prescribed and Uses port O2 as prescribed Bronchial Hygiene Plan: Yes: Pt demonstrates correctly for effective cough, Yes: Pt demo correct for device (Mucus Clearance device, PEP therapy, SMI device), Yes: Pt demo correct for evalute sputum and Yes: Pt demo correct for verbalize when to call MD Medication Medication list reviewed:: Yes Taking medications 100% of the time:: Met Medication reassessment: Yes: Pt demonstrates correct technique timing for MDI, Yes: Pt demonstrates correct technique timing for DPI, Yes: Pt demonstrates correct technique timing for NEB and Yes: Pt demonstrates correct technique timing for spacer (Reeducated in use of spacer device for MDI delivery) Diabetes Diabetes:: No Heart Failure Documenting weight daily: No Core Components - Final Visit Session Number:: 33 Hypertension Hypertension Diagnosis:: Hypertension ICD-10 I10 Resting Blood Pressure:: 124/84 [place] [employer] Hypertension Guidelines Peak Exercise Blood Pressure:: 142/80 Outcomes/Goals: Able to verbalize/achieve optimal blood pressure <130/80 and Incorporates diet changes & exercise for blood pressure control by DC Tobacco - Final Tobacco Program Goals Stages of Change:: Preparation Learning Barriers: Participates in education Do you have family support?: Yes Tobacco Use: Cigarettes Date quit:: 01/16/23 Do you use smokeless tobacco?: No Smoking Cessation Referral:: Yes Individual Education/Counseling:: Yes Education Schedule Given:: Yes Exacerbation Mgmt & Airway Clearance Bronchial Hygiene Plan: Yes: Pt demonstrates correctly for effective cough, Yes: Pt demo correct for device (Mucus Clearance device, PEP therapy, SMI device), Yes: Pt demo correct for evalute sputum and Yes: Pt demo correct for verbalize when to call MD Medication Medication reassessment: Yes: Pt demonstrates correct technique timing for MDI, Yes: Pt demonstrates correct technique timing for DPI, Yes: Pt demonstrates correct technique timing for NEB and Yes: Pt demonstrates correct technique timing for spacer (Reeducated in use of spacer device for MDI delivery) Diabetes Diabetes:: No Patient Health Questionnaire PHQ-9 Screening 90-Day Re-eval Assessment: 1. Little interest or pleasure in doing things: Several days 2. Feeling down, depressed, or hopeless: Several days 3. Trouble falling or staying asleep, or sleeping too much: Several days 4. Feeling tired or having little energy: More than half the days 5. Poor appetite or overeating: Not at all 6. Feeling bad about yourself -- or that you are a failure or have let yourself or your family down: Several days 7. Trouble concentrating on things, such as reading the newspaper or watching television: More than half the days 8. Moving or speaking so slowly that other people could have noticed. Or the opposite - being so fidgety or restless that you have been moving around a lot more than usual: Not at all How difficult have these problems made it for you to do your work, take care of things at home, or get along with other people?: Somewhat difficult Total Score: 8 Knowledge Questionaire (BCKQ) Information Information: [place] COPD Knowledge Questionnaire (BCKQ) This questionnaire is designed to find out what you know about your lung problem. It should be completed without help form anyone else. This usually takes between 10 and 20 minutes. Your answers will help us to find out what information you need to help you to understand and manage your lung condition. [place] the red devil which you think is the correct answer. COPD Assessment Test [CAT] Questions Never cough = 0, Cough all the time = 5: 1 No phlegm = 0, Chest full of phlegm = 5: 0 No chest tightness = 0, Chest very tight = 5: 1 No breathless w/exertion = 0, Very breathless w/exertion = 5: 4 No limitations w/activity = 0, Very limited w/activity = 5: 4 Confident leaving home = 0, Not at all confident = 5: 0 Sleep soundly = 0, Don't sleep soundly = 5: 4 Lots of energy = 0, No energy at all = 5: 4 Total CAT score:: 18 Self-Efficacy 6-Item Scale 90-Day Re-eval Assessment: We would like to know how confident you are in doing certain activities. Please select your confidence level for: Fatigue Select Number: 5 Physical Discomfort or Pain Select Number: 3 Emotional Distress Select Number: 4 Other Symptoms or Health Problems Select Number: 5 Different Tasks and Activities Select Number: 4 Medication Select Number: 5 Total Score:: 4 Nutrition Survey Nutrition Survey Instructions Scoring Instructions
[2023-04-25 12:01] VITALS: BP 124/84; BP 142/80; O2SAT 91
== END 2023-05-17 23:59 ==
LOC: PR 13:00
PROVIDERS: PCP Internal Medicine; Referring Provider Internal Medicine Critical Care Medicine; Visit Provider Internal Medicine Critical Care Medicine
DX: J44.9 Chronic obstructive pulmonary disease, unspecified (principal); J96.91 Respiratory failure, unspecified with hypoxia
CPT/HCPCS: 97150; 94626

== ENCOUNTER → 2023-05-21 | Outpatient (CLI) | payer MEDICARE, MEDICAID, SELFPAY ==
[2023-04-16 10:40] VITALS: BMI 21.0
[2023-05-21 15:50] LABS: Absolute Lymphocyte Count 0.87 X10^3/uL (0.83-4.51); Absolute Neutrophil Count 2.6 X10^3/uL (2.0-7.7); Basophil# 0.08 X10^3/uL; Basophil% 1.8 % (0-1); Eosinophil# 0.19 X10^3/uL; Eosinophils% 4.3 % (0-5); Hematocrit 37.6 % (40-54); Hemoglobin 11.2 g/dL (13.0-16.5); Lymphocyte # 0.87 X10^3/ul (0.83-4.51); Lymphocyte % 19.6 % (19-41); Mean Corp Hgb Conc 29.8 g/dL (32-36); Mean Corpuscular Hgb 25.9 pg (27.0-32.0); Mean Corpuscular Volume 86.8 fL (80-94); Monocyte# 0.64 X10^3/uL; Monocyte% 14.4 % (0-10); NRBC Flagged by Analyzer 0 % (0-5); Neutrophil # 2.64 X10^3/uL (2.7-7.7); Neutrophil % 59.4 % (47-70); Platelet Count 313 K/mm3 (150-450); RBC Distribution Width CV 15.2 % (11.6-14.6); RBC Distribution Width SD 48.3 fl (35.1-43.9); Red Blood Count 4.33 M/mm3 (4.6-6.2); White Blood Count 4.4 K/mm3 (4.4-11.0)
[2023-05-21 16:40] LABS: ALB/GLOB Ratio 0.8 RATIO (0.9-2.4); AST(SGOT) 17 U/L (15-37); Alanine Aminotransfer ALT/SGPT 21 U/L (16-61); Albumin, Serum 3.5 g/dL (3.2-5.0); Alkaline Phosphatase 109 U/L (45-117); Anion Gap 5 (5-15); BUN 11 mg/dL (7-18); BUN/Creat Ratio 11.9 RATIO (10-20); Calcium,Total 8.7 mg/dL (8.5-10.1); Chloride 102 mmol/L (98-107); Creatinine, Serum 0.92 mg/dL (0.70-1.30); EST Glomerular Filtration Rate 90 mL/min (>60); Est Glom Filt Rate - Afr Amer 109 mL/min (>60); Globulin 4.3 g/dL (2.2-4.2); Glucose 88 mg/dL (74-106); PSA,Total - Annual Screen 3.82 ng/mL (0.00-4.00); Potassium 4.4 mmol/L (3.5-5.1); Protein, Total 7.8 g/dL (6.4-8.2); Sodium Level 136 mmol/L (136-145)
== END | disposition home or self-care (01) ==
LOC: BIMLAB 12:12
PROVIDERS: PCP Internal Medicine; Referring Provider Internal Medicine; Visit Provider Internal Medicine
DX: Z00.00 Encounter for general adult medical examination without abnormal findings (principal); G62.9 Polyneuropathy, unspecified; Z12.5 Encounter for screening for malignant neoplasm of prostate
CPT/HCPCS: 36415; 80053; 84153; 85025; G0103

== ENCOUNTER → 2023-05-29 | Outpatient (CLI) | payer MEDICARE, MEDICAID, SELFPAY ==
[2023-04-16 10:40] VITALS: BMI 21.0
--- NOTE | 2023-05-29 09:05 | CT_ITS ---
STUDY: CT CHEST WITHOUT CONTRAST REASON FOR EXAM: Male, 57 years old. Lung transplant eval -- high resolution cuts RADIATION DOSAGE (If Supplied By Facility): CTDIvol = ( 6.52 ) mGy, DLP = ( 251.77 ) mGycm TECHNIQUE: Transaxial imaging was performed without the administration of intravenous contrast material. Multiplanar coronal and sagittal images were reformatted. Individualized dose optimization techniques were used for this CT. COMPARISON: Comparison is made with prior study dated April 16, 2023. FINDINGS: CHEST Hyperinflation. Stable mild degree of scarring in the posterior aspect of the left upper lobe as well as in the posterior aspect of the right upper lobe. Evidence of emphysematous changes. There is no demonstrated pleural abnormality. There are minimal calcifications of the coronary arteries. There are small lymph nodes within the mediastinum, which are normal in size and morphology most compatible with reactive lymph hyperplasia. Normal hilar regions. Normal unenhanced pulmonary arteries. Normal aorta arch and descending thoracic aorta. Normal osseous structures. There is no demonstrated abnormality of the visualized upper abdomen. CT/Chest without Contrast IMPRESSION: Stable examination. Electronically Signed: Aiden Santiago MD at 14:53 EST ,
--- NOTE | 2023-05-30 13:10 | PFT ---
INTRODUCTION: The patient is a 57-year-old male who presents for pulmonary function studies secondary to a diagnosis of COPD. Respiratory therapy reported good patient effort. Bronchodilators were used during testing. INTERPRETATION: Forced expiration spirometry demonstrates the presence of a very severe large airways obstructive ventilatory defect. There was a significant response to aerosolized bronchodilators. Body plethysmography was performed and revealed evidence of hyperinflation and air trapping. Diffusing capacity by single breath CO is severely reduced at 19% of predicted. IMPRESSION: Partially reversible very severe large airways obstructive ventilatory defect with associated hyperinflation, air trapping and symmetric reduction in diffusing capacity.
== END | disposition home or self-care (01) ==
PROVIDERS: PCP Internal Medicine; Referring Provider Nurse Practitioner Acute Care; Visit Provider Nurse Practitioner Acute Care
DX: J44.9 Chronic obstructive pulmonary disease, unspecified (principal); R06.00 Dyspnea, unspecified
CPT/HCPCS: 71250; 94060; 94726; 94729

== ENCOUNTER → 2023-06-05 | Outpatient (CLI) | payer MEDICARE, MEDICAID, SELFPAY ==
[2023-04-16 10:40] VITALS: BMI 21.0
[2023-06-05 13:15] VITALS: PULSE 102; PULSE 107; PULSE 110; PULSE 112; PULSE 114; PULSE 94; PULSE 99; O2SAT 82; O2SAT 88; O2SAT 91; O2SAT 92; O2SAT 94; O2SAT 95; O2SAT 97
[2023-06-05 13:19] LABS: Allen Test Positive; Base Excess 3 mmol/L (-2 to +2); Blood Gas Specimen Type ART; Mode Not entered; O2 Delivery Device Room Air; PO2 46 mmHG (75-100); SITE R Radial; SO2 83 % (95-99); Total Carbon Dioxide 28 mmol/L; pCO2 41.3 mmHg (35-45); pH 7.42 (7.35-7.45)
--- NOTE | 2023-06-05 13:46 | CPS ---
Pt was on room air when arriving for walk. Saturation was 83%. Pt was placed on 2 lpm and saturation to 89%. Pt was increased to 3 lpm and walk started at 3 lpm with a saturation of 94%. At 2 minutes into walk saturation was 82% on 3 lpm. Pt was increased to 6 lpm. Walk was resumed on 6 lpm. Pt did not drop on the 6 lpm until minute 6. Pt was asked if he ever walked this long at one time and he stated never. walk was completed at 6minutes on the 6lpm.
--- NOTE | 2023-06-06 15:29 | PCM.PSN.6M ---
PSN 6 Minute Walk Test 6 Minute Walk Test 6 Minute Walk Test: 6 Minute Walk Test PSN:6-Minute Walk Test Start: 06/05/23 13:37 Freq: Status: Active Protocol: [id number] Document 06/05/23 13:15 AE (Rec: 06/05/23 13:54 [facility] Desktop) 6 Minute Walk Test Date Performed 06/05/23 Time Performed 13:15 Height 5 ft 5 in Weight: 54.431 kg Weight in Pounds 120.[address]: Philomena Assistive device used: None Pre-test Oxygen Flow Rate (L/min) 3 Oxygen Delivery Method Nasal Cannula Pulse Ox 94 Pulse Rate (60-100) 94 Dyspnea Jacqueline Scale (0-10) 0.5 Exertion Jacqueline Scale (6-20) 6 1st minute Oxygen Flow Rate (L/min) 3 Oxygen Delivery Method Nasal Cannula Pulse Ox 92 Pulse Rate (60-100) 110 H 2nd minute Oxygen Flow Rate (L/min) 3 Oxygen Delivery Method Nasal Cannula Pulse Ox 82 Pulse Rate (60-100) 114 H Dyspnea Jacqueline Scale (0-10) 4 Number of Rests Taken 1 Reported Symptoms Increased Work of Breathing 3rd minute Oxygen Flow Rate (L/min) 6 Oxygen Delivery Method Nasal Cannula Pulse Ox 97 Pulse Rate (60-100) 102 H 4th minute Oxygen Flow Rate (L/min) 6 Oxygen Delivery Method Nasal Cannula Pulse Ox 95 Pulse Rate (60-100) 107 H 5th minute Oxygen Flow Rate (L/min) 6 Oxygen Delivery Method Nasal Cannula Pulse Ox 91 Pulse Rate (60-100) 112 H 6th minute Oxygen Flow Rate (L/min) 6 Oxygen Delivery Method Nasal Cannula Pulse Ox 88 Pulse Rate (60-100) 112 H Dyspnea Jacqueline Scale (0-10) 4 Reported Symptoms Increased Work of Breathing Post-test Oxygen Flow Rate (L/min) 6 Oxygen Delivery Method Nasal Cannula Pulse Ox 95 Pulse Rate (60-100) 99 Full Laps Walked 7 Partial Lap, Number of Tiles Walked 0 Total Distance Walked (ft) 413 06/05/23 13:46 Cardiopulmonary Services by Renetta De Jesus Pt was on room air when arriving for walk. Saturation was 83%. Pt was placed on 2 lpm and saturation to 89%. Pt was increased to 3 lpm and walk started at 3 lpm with a saturation of 94%. At 2 minutes into walk saturation was 82% on 3 lpm. Pt was increased to 6 lpm. Walk was resumed on 6 lpm. Pt did not drop on the 6 lpm until minute 6. Pt was asked if he ever walked this long at one time and he stated never. walk was completed at 6minutes on the 6lpm. Initialized on 06/05/23 13:46 - END OF NOTE Interpretation Interpretation: The patient was noted to have a saturation of 83% on room air at rest, but did improve to 89% with the addition of 2 L/min. Patient then started ambulating and required 6 L/min to maintain saturations through testing. In total, the patient traveled only 413 feet over the course of 6 minutes with 1 break and no assistive devices. Patient did have an element of reflexive tachycardia as high as 114 bpm. These findings are consistent with a respiratory limitation exercise tolerance. Recommendations Recommendations: The patient requires 2 L/min of supplemental oxygen at rest, but should be increased to at least 6 L/min with any ambulation
== END | disposition home or self-care (01) ==
LOC: PSN 12:39
PROVIDERS: PCP Internal Medicine; Referring Provider Nurse Practitioner Acute Care; Visit Provider Nurse Practitioner Acute Care
DX: J44.9 Chronic obstructive pulmonary disease, unspecified (principal)
CPT/HCPCS: 36600; 82803; 94618

== ENCOUNTER → 2023-06-05 | Outpatient (CLI) | payer MEDICARE, MEDICAID, SELFPAY ==
[2023-04-16 10:40] VITALS: BMI 21.0
--- OUTSIDE RECORDS SUMMARY | 2023-06-14 16:37 | XMS RPT_ITS | CCD ---
Author Name Unknown Address [address] [place] [address] Organization [facility] Care Team Providers Care Ream Cutter Name Role Phone BEN RODRIGUEZ Unavailable Unavailable FRANKLIN JOHNSON Unavailable Unavailable MIRNA ALFORD Unavailable Unavailable MIRNA ALFORD Unavailable Unavailable Betty Beard MD Primary Care Provider [phone] BETTY BEARD Primary Care Unavailable LEIDY CUEVAS Attending Unavailable BETTY BEARD Primary Care Unavailable LEIDY CUEVAS Referring Unavailable Allergies Allergy Classification Reported Allergen(s) Allergy Type Date of Onset Reaction(s) Facility (4 sources) primidone; Translations: [PRIMIDONE] Drug Allergy 6 Other: See Comments [facility] Repository (4 sources) NICODERM; Translations: [NICODERM] Propensity to adverse reactions to drug (disorder) 8 Itching [facility] Repository (4 sources) AMOXICILLIN-POT CLAVULANATE; Translations: [AMOXICILLIN-PO T CLAVULANATE] Propensity to adverse reactions to drug (disorder) 1 Itching [facility] Repository Medications Completed/Discontinued Medications Medication Drug Class(es) Dates Sig (Normalized) Sig (Original) [id number] 200 actuat albuterol 0.09 mg/actuat metered dose inhaler (4 sources) beta2-Adrenergic Agonist Start: 10-31-2018 take 2 puff(s) by mouth every four hours for wheezing albuterol HFA (PROAIR HFA) 90 mcg/actuation inhaler Indications: Pulmonary emphysema, unspecified emphysema type (HCC) inhale 2 puffs by mouth every 4 hours if needed for wheezing or shortness of breath 8.5 g 11 10/31/2018 Active Problems Active Problems Problem Classification Problem Date Documented Da te Episodic/Chronic Chronic obstructive pulmonary disease and bronchiectasis (3 sources) Chronic obstructive pulmonary disease, unspecified; Translations: [Chronic obstructive lung disease] Onset: 07-21-2015 06-13-2021 Chronic Mood disorders (4 sources) Depressive disorder; Translations: [Depression] Onset: 02-23-2012 04-05-2015 Chronic Other hereditary and degenerative nervous system conditions (2 sources) Essential tremor; Translations: [Essential tremor] Onset: 04-05-2015 04-05-2015 Chronic Other hereditary and degenerative nervous system conditions (2 sources) Tremor; Translations: [Other specified forms of tremor] Onset: 09-01-2015 09-01-2015 Chronic Other nervous system disorders (2 sources) Bilateral carpal tunnel syndrome; Translations: [Carpal tunnel syndrome, bilateral upper limbs] Onset: 11-22-2012 04-05-2015 Chronic Other nervous system disorders (2 sources) Carpal tunnel syndrome of left wrist; Translations: [Carpal tunnel syndrome, left upper limb] Onset: 03-31-2013 04-05-2015 Chronic Other nervous system disorders (2 sources) Carpal tunnel syndrome of right wrist; Translations: [Carpal tunnel syndrome, right upper limb] Onset: 09-02-2013 04-05-2015 Chronic Other nervous system disorders (2 sources) Neuropathy; Translations: [Polyneuropathy, unspecified] Onset: 09-29-2013 04-05-2015 Chronic Other nervous system disorders (2 sources) Chronic pain syndrome; Translations: [Chronic pain syndrome] Onset: 07-21-2015 07-21-2015 Chronic Other non-traumatic joint disorders (2 sources) Pain in right shoulder; Translations: [Pain in joint, shoulder region] Onset: 12-21-2022 Episodic Other non-traumatic joint disorders (1 source) Bilateral chronic pain of upper limbs; Translations: [Pain in right shoulder] 12-21-2022 Episodic Other non-traumatic joint disorders (1 source) Disorder of shoulder; Translations: [Other specified joint disorders, unspecified shoulder] 01-23-2023 Episodic Other non-traumatic joint disorders (1 source) Pain in left shoulder; Translations: [Bilateral shoulder pain, unspecified chronicity] Onset: 12-21-2022 Episodic Spondylosis; intervertebral disc disorders; other back problems (2 sources) Lumbar spondylosis; Translations: [Spondylosis without myelopathy or radiculopathy, lumbar region] Onset: 08-25-2013 04-05-2015 Chronic Substance-related disorders (6 sources) Smoker; Translations: [Nicotine dependence, unspecified, uncomplicated] Onset: 02-23-2012 06-13-2021 Chronic Unclassified (1 source) Unknown / UNK(Unknown) Onset: 08-09-2017 Past or Other Problems Problem Classification Problem Date Documented Da te Episodic/Chronic Abdominal hernia (2 sources) Bilateral inguinal hernia; Translations: [Bilateral inguinal hernia, without obstruction or gangrene, not specified as recurrent] Onset: 10-27-2015 10-27-2015 Episodic Conditions associated with dizziness or vertigo (4 sources) Peripheral vertigo; Translations: [Other peripheral vertigo, unspecified ear] Onset: 03-17-2011 04-05-2015 Episodic Other connective tissue disease (2 sources) Disorder of rotator cuff; Translations: [Unspecified disorder of synovium and tendon, right shoulder] Onset: 11-04-2013 04-05-2015 Episodic Other lower respiratory disease (2 sources) Nodule of lung; Translations: [Solitary pulmonary nodule] Onset: 08-23-2016 08-23-2016 Episodic Pneumonia (except that caused by tuberculosis or sexually transmitted disease) (2 sources) Infective pneumonia; Translations: [Pneumonia, unspecified organism] Onset: 08-11-2016 08-11-2016 Episodic Spondylosis; intervertebral disc disorders; other back problems (15 sources) Radiculopathy, cervical region; Translations: [Backache] Onset: 02-23-2012 06-13-2021 Episodic Results Test Name Value Interpretation Reference Range Facil ity Encounters Encounter Date Encounter Type Care Provider Facility Start: 12-21-2022 End: 12-21-2022 ambulatory BETTY BEARD Facility:[facility] Start: 12-21-2022 End: 12-21-2022 Patient encounter procedure Leidy Cuevas MD Work Phone: Orthopaedics Procedures Date Procedure Procedure Detail Performing Clinician Start: 12-21-2022 Arthrocentesis aspir &/inj major jt/bursa w/o us Leidy Cuevas MD Work Phone: Plan of Treatment Date Care Activity Detail Author Start: 10-31-2031 PNEUMOCOCCAL (3 - PPSV23 or PCV20) PNEUMOCOCCAL (3 - PPSV23 or PCV20) [facility] Start: 02-16-2023 Influenza vaccination [facility] Start: 06-18-2022 DEPRESSION ASSESSMENT DEPRESSION ASSESSMENT [facility] Start: 11-07-2021 DIABETES SCREEN DIABETES SCREEN [facility] Start: 2021 PROSTATE CANCER SCREENING DISCUSSION PROSTATE CANCER SCREENING DISCUSSION [facility] Start: 07-14-2021 COVID-19 VACCINE (4 - Moderna series) COVID-19 VACCINE (4 - Moderna series) [facility] Start: 07-17-2019 LIPID SCREEN LIPID SCREEN [facility] Start: 06-20-2019 ANNUAL PCP TEAM CHRONIC DISEASE VISIT ANNUAL PCP TEAM CHRONIC DISEASE VISIT [facility] Start: 08-28-2018 Influenza vaccination LUNG CANCER SCREENING [facility] Start: 2016 SHINGRIX VACCINE (1 of 2) SHINGRIX VACCINE (1 of 2) [facility] Start: 10-11-2016 COLORECTAL CANCER SCREENING COLORECTAL CANCER SCREENING [facility] Start: 10-11-2016 FECAL OCCULT BLOOD FECAL OCCULT BLOOD [facility] Start: 10-31-2011 COLOGUARD (FIT-DNA) COLOGUARD (FIT-DNA) [facility] Start: 10-31-2011 Colonoscopy COLONOSCOPY [facility] Start: 10-31-[address] COLONOGRAPHY [facility] Start: 10-31-2011 SIGMOIDOSCOPY SIGMOIDOSCOPY [facility] Start: 1996 Zoledronic acid therapy ALPHA-1 ANTITRYPSIN DEFICIENCY SCREENING [facility] Start: 1985 Urine microalbumin profile DTAP,TDAP,TD (1 - Tdap) [facility] Start: 1984 HEPATITIS C SCREENING HEPATITIS C SCREENING [facility] Start: 1984 HIV SCREENING HIV SCREENING [facility] Start: 05-02-1967 COVID-19 VACCINE (#1) COVID-19 VACCINE (#1) [facility] Start: 1966 HEPATITIS B (1 of 3 - 3-dose series) HEPATITIS B (1 of 3 - 3-dose series) [facility] End: 01-11-2024 XR SHOULDER GENERAL 3V OR MORE AP/TRUE AP/OTHER LEFT XR SHOULDER GENERAL 3V OR MORE AP/TRUE AP/OTHER LEFT Radiology Routine Bilateral shoulder pain, unspecified chronicity 1 Occurrences starting 12/12/2022 until 01/11/2024 [facility] Work Phone: Immunizations Immunization Date Immunization Notes Care Provider Tatiana thurston 01-04-2015 pneumococcal conjuga te vaccine, 13 lisbet Cuevas MD Work Phone: [facility] 02-27-2013 pneumococcal polysaccharide vaccine, 23 valvalencia Cuevas MD Work Phone: [facility] Payers Date Payer Category Payer Medicaid [facility] [place] MEDICAID MYC ARE [facility] [place] MEDICAID [id number] 2017-Present [phone] [address] [place] [address] Medicaid [id number] 2017 Medicare [facility] MEDICARE MYC ARE [facility] [place] MEDICARE [id number] 2017-Present [phone] [address] [place] [address] Medicare [id number] 2017 Medicare [id number] Social History Date Type Detail Facility Start: 02-10-1973 Tobacco smoking stat us NVIS Smokes tobacco daily [facility] Work Phone: Start: 02-10-1973 History of tobacco use Cigarette Smo ker [facility] Work Phone: Start: 06-10-2018 End: 12-21-2022 Cigarettes smoked current (pack per day) - Reported 2 [facility] Start: 06-10-2018 Tobacco use and exposure Smokeless tobacco non-user [facility] Work Phone: Start: 08-05-2019 End: 01-23-2023 Alcohol intake Current non-drinker of alcohol (finding) [facility] Start: 05-18-2016 Alcohol Comment [facility] 1965 Sex Assigned At Male C [facility] Start: 06-20-2018 End: 12-21-2022 Tobacco use panel [facility] Adult Depression Screening Assessment 0 [facility] Start: 10-24-2020 Gender identity Identifies as male gender (finding) [facility] Start: 10-24-2020 Sexual orientation Heterosexual (kenn aparicio) [facility] Medical Equipment Procedure Code Equipment Code Equipment Origin al Text Equipment Identifier Dates Graft Dbx Bone V oid Allograft Freeze Dried Putty 1ml - [id number] Start: 03-21-2017 Spacer Avs 4d Pe ek [id number] Spinal Cage - [id number] Start: 03-21-2017 Plate Aviator Titanium 26x17.4x2.5mm Bone Level 2 Automatic Lock System - [id number] Start: 03-21-2017 Screw Aviator 4. 35mm Titanium 14mm Bone Variable Angle Self Tap Nonsterile - [id number] Start: 03-21-2017 Spacer Avs-As 4d [place] [id number] Spinal Alif - [id number] Start: 03-21-2017 Progress note 12-21-2022 Note Date & Type Note Facility 12-21-2022 Note HNO ID: [id number] Author: Leidy Cuevas MD Service: ? Author Type: Physician Type: Progress Notes Filed: 01/23/2023 8:13 AM Note Text: Leidy Cuevas MD Department of Orthopaedics Orth[facility] [address] [facility] [address] Dept: [phone] Dept December 21, 2022 CHIEF COMPLAINT: Pain and Follow Up of the Right Shoulder and Pain and Follow Up of the Left Shoulder HPI Returns after quite some time away, both shoulders are giving him troubles. Reaching overhead and away from the body. ASSESSMENT: M25.511, G89.29, M25.512 Chronic pain of both shoulders (primary encounter diagnosis) M25.819 Shoulder impingement PLAN: Bilateral shoulder injections; NSAIDs and therapy if needed Mr. Keena Teixeira was advised as to contrast therapies and/or to take analgesics/anti-inflammatories as needed and all contraindications were reviewed. OBJECTIVE: Mr. Keena Teixeira is a pleasant 57 year old in no apparent distress. Gen:There were no vitals taken for this visit. nl development, thin-appearing , no deformities ENT: Normocephalic, normal hearing, moist mucosa CV: Pulses:Radial= 2+ and symmetric, capillary refill < 2 secs, no peripheral edema/varicosities Skin: no rash, bruising or lesions. Good turgor. Psych: cooperative and appropriate, alert and oriented x 3, good mood and affect. Musculoskeletal: Exam consistent with impingement of both shoulders Large Joint Arthro/Inj: bilateral subacromial bursas Informed Consent Consent Obtained: Verbal [place] Protocol A moment to CARE was completed. SIGN IN Sign in communication not applicable due to emergent procedure. Personnel directly involved with the procedure wore the appropriate PPE. Special Equipment: N/A Patient/Surrogate Stated/Verified: Patient name, Date of , Relevant allergies and Intended procedure TIME OUT Intended patient and procedure match the source document(s). Consent documented and matches the intended procedure. Relevant labs, photos, and/or imaging studies have been reviewed. Correct side/site marked and visible. Medications required for procedure verified. No fire risk assessment and interventions applicable. No implant(s) inserted. 12/21/2022 11:02 AM The procedure site was prepped in the usual sterile fashion. Site: bilateral subacromial bursas Medications (Right): 6 mg betamethasone acetate-betamethasone sodium phosphate 6 mg/mL Medications (Left): 6 mg betamethasone acetate-betamethasone sodium phosphate 6 mg/mL Anesthetics (Right): 5 mL lidocaine (PF) 10 mg/mL (1 %) Anesthetics (Left): 5 mL lidocaine (PF) 10 mg/mL (1 %) Outcome: Tolerated well, no immediate complications Post-injection instructions were reviewed with the patient and the patient voiced understanding of these instructions. SIGN OUT All instruments, equipment, possible retained foreign bodies accounted for. Imaging: IMPRESSION: MILD DEGENERATIVE CHANGES OF ACROMIOCLAVICULAR JOINT BILATERALLY. Truck Sales Manager: JAKE Transcribe Date/Time: Dec 21 2022 7:24P Dictated by : IZZY AVILA MD This examination was interpreted and the report reviewed and electronically signed by: IZZY AVILA MD on Dec 21 2022 7:26PM EST Results-Findings * * *Final Report* * * DATE OF EXAM: Dec 21 2022 10:36AM [id number] - XR SHLDR >/=3V AP/ANA AP/OTHR RT / PROCEDURE REASON: multiple diagnoses * * * * Physician Interpretation * * * * HISTORY: 57-YEAR-OLD MALE WITH Bilateral shoulder pain, unspecified chronicity Bilateral shoulder pain, unspecified chronicity . pain in both shoulders for year with right being worse with pain in ac joint area left is ok at this time no inj TECHNIQUE: XR SHLDR >/=3V AP/ANA AP/OTHR LT, XR SHLDR >/=3V AP/ANA AP/OTHR RT Laterality: LEFT (accession [id number]), RIGHT (accession [id number]) Number of different views (projections): 3 COMPARISON: None RESULT: Bilateral shoulder: Glenohumeral joint space is maintained bilaterally. Acromiohumeral interval is maintained bilaterally. Mild degenerative changes of acromioclavicular joint bilaterally with small bursal sided osteophytes. Enthesophyte laterally at the right acromion at the origin of the deltoid. No fracture. No dislocation. Shunt tubing is present on the right and there is fusion of the cervical spine. Supporting Subjective Information Below: Past Surgical History: PAST SURGICAL HISTORY Procedure Laterality Date CATARACT SURGERY, COMPLEX bilateral LAPAROSCOPY SURG RPR INITIAL INGUINAL HERNIA Bilateral 09/2016 Dr. Ignacia Serrano General LAPS SURG CHOLECYSTECTOMY W/CHOLANGIOGRAPHY 09/19/13 NECK SURGERY HX 03/2017 PAST SURGICAL HISTORY OF 04/25/2013 left carpal tunnel release PAST SURGICAL HISTORY OF 09/02/2013 right carpal tunnel release Medications: Current Outpatient Medications Medication Sig ARIPiprazole (ABILIFY) 15 mg tablet Take 15 mg by mouth (more content not included)... [facility] Progress note 12-21-2022 Note Date & Type Note Facility 12-21-2022 Note HNO ID: [id number] Author: Elba Alexander, RT(R) Service: Nuclear Medicine Author Type: Technologist Type: Progress Notes Filed: 12/21/2022 10:36 AM Note Text: Radiology Service Progress Note PATIENT NAME: Keena Teixeira DATE OF SERVICE: December 21, 2022 TIME: 10:17 AM PATIENT IDENTITY VERIFICATION COMPLETED USING TWO (2) IDENTIFIERS: Name and Date of confirmed by patient verbally. FALL SCREENING: Has the patient had 2 falls in the last year or 1 fall with injury or currently using an Ambulatory Assistive Device (Walker, Cane, Wheelchair, Crutches, etc.)? Yes, Patient High Risk for Falls What interventions were put in place to prevent falls during this visit? Offered Assistance with Transfers/Clothing and done sitting in chair PATIENT GENDER DATA: Male PATIENT RELEVANT IMPLANT DATA REVIEWED: Not Applicable RADIOLOGY DEPARTMENT: General X-ray: Exam(s) Completed: Upper Extremity X-Ray(s): Shoulder, AP / TRUE AP / AXILLARY bilateral PERIPHERAL IV DATA: Not applicable SIGNED BY: RT Karen(R) December 21, 2022 10:17 AM [facility] History of Present illness Narrative 12-21-2022 Leidy Cuevas MD - 12/21/2022 11:01 AM EDT Note Date & Type Note Facility 12-21-2022 History of Presen t illness Narrative Associated Order(s): Large Joint Arthro/Inj: bilateral subacromial bursas Post-Procedure Diagnose(s): Chronic pain of both shoulders Leidy Cuevas MD Department of Orthopaedics Orthopaedics [address] [place] [address] Dept: [phone] Dept December 21, 2022 CHIEF COMPLAINT: Pain and Follow Up of the Right Shoulder and Pain and Follow Up of the Left Shoulder HPI Returns after quite some time away, both shoulders are giving him troubles. Reaching overhead and away from the body. ASSESSMENT: M25.511, G89.29, M25.512 Chronic pain of both shoulders (primary encounter diagnosis) M25.819 Shoulder impingement PLAN: Bilateral shoulder injections; NSAIDs and therapy if needed Mr. Keena Teixeira was advised as to contrast therapies and/or to take analgesics/anti-inflammatories as needed and all contraindications were reviewed. OBJECTIVE: Mr. Keena Teixeira is a pleasant 57 year old in no apparent distress. Gen:There were no vitals taken for this visit. nl development, thin-appearing , no deformities ENT: Normocephalic, normal hearing, moist mucosa CV: Pulses:Radial= 2+ and symmetric, capillary refill < 2 secs, no peripheral edema/varicosities Skin: no rash, bruising or lesions. Good turgor. Psych: cooperative and appropriate, alert and oriented x 3, good mood and affect. Musculoskeletal: Exam consistent with impingement of both shoulders Large Joint Arthro/Inj: bilateral subacromial bursas Informed Consent Consent Obtained: Verbal [place] Protocol A moment to CARE was completed. SIGN IN Sign in communication not applicable due to emergent procedure. Personnel directly involved with the procedure wore the appropriate PPE. Special Equipment: N/A Patient/Surrogate Stated/Verified: Patient name, Date of , Relevant allergies and Intended procedure TIME OUT Intended patient and procedure match the source document(s). Consent documented and matches the intended procedure. Relevant labs, photos, and/or imaging studies have been reviewed. Correct side/site marked and visible. Medications required for procedure verified. No fire risk assessment and interventions applicable. No implant(s) inserted. 12/21/2022 11:02 AM The procedure site was prepped in the usual sterile fashion. Site: bilateral subacromial bursas Medications (Right): 6 mg betamethasone acetate-betamethasone sodium phosphate 6 mg/mL Medications (Left): 6 mg betamethasone acetate-betamethasone sodium phosphate 6 mg/mL Anesthetics (Right): 5 mL lidocaine (PF) 10 mg/mL (1 %) Anesthetics (Left): 5 mL lidocaine (PF) 10 mg/mL (1 %) Outcome: Tolerated well, no immediate complications Post-injection instructions were reviewed with the patient and the patient voiced understanding of these instructions. SIGN OUT All instruments, equipment, possible retained foreign bodies accounted for. Imaging: IMPRESSION: MILD DEGENERATIVE CHANGES OF ACROMIOCLAVICULAR JOINT BILATERALLY. Truck Sales Manager: JAKE Transcribe Date/Time: Dec 21 2022 7:24P Dictated by : IZZY AVILA MD This examination was interpreted and the report reviewed and electronically signed by: IZZY AVILA MD on Dec 21 2022 7:26PM EST Results-Findings * * *Final Report* * * DATE OF EXAM: Dec 21 2022 10:36AM [id number] - XR SHLDR >/=3V AP/ANA AP/OTHR RT / PROCEDURE REASON: multiple diagnoses * * * * Physician Interpretation * * * * HISTORY: 57-YEAR-OLD MALE WITH Bilateral shoulder pain, unspecified chronicity Bilateral shoulder pain, unspecified chronicity . pain in both shoulders for year with right being worse with pain in ac joint area left is ok at this time no inj TECHNIQUE: XR SHLDR >/=3V AP/ANA AP/OTHR LT, XR SHLDR >/=3V AP/ANA AP/OTHR RT Laterality: LEFT (accession [id number]), RIGHT (accession [id number]) Number of different views (projections): 3 COMPARISON: None RESULT: Bilateral shoulder: Glenohumeral joint space is maintained bilaterally. Acromiohumeral interval is maintained bilaterally. Mild degenerative changes of acromioclavicular joint bilaterally with small bursal sided osteophytes. Enthesophyte laterally at the right acromion at the origin of the deltoid. No fracture. No dislocation. Shunt tubing is present on the right and there is fusion of the cervical spine. Supporting Subjective Information Below: Past Surgical History: PAST SURGICAL HISTORY Procedure Laterality Date CATARACT SURGERY, COMPLEX bilateral LAPAROSCOPY SURG RPR INITIAL INGUINAL HERNIA Bilateral 09/2016 Dr. Ignacia Serrano General LAPS SURG CHOLECYSTECTOMY W/CHOLANGIOGRAPHY 09/19/13 NECK SURGERY HX 03/2017 PAST SURGICAL HISTORY OF 04/25/2013 left carpal tunnel release PAST SURGICAL HISTORY OF 09/02/2013 right carpal tunnel release Medications: Current Outpatient Medications Medication Sig ARIPiprazole (ABILIFY) 15 mg tablet Take 15 mg by mouth once daily. busPIRone (BUSPAR) 15 mg tablet Take 15 mg by mouth twice daily. fluvoxaMINE (LUVOX) 100 mg tablet Take 100 mg by mouth twice daily. STIOLTO RESPIMAT 2.5-2.5 mcg/actuation inhale 2 puffs by mouth and INTO THE LUNGS once daily carBAMazepine XR (TEGRETOL XR) 200 mg 12 hr tablet Only 1 tablet in the morning albuterol HFA (PROAIR HFA) 90 mcg/actuation inhaler inhale 2 puffs by mouth every 4 hours if needed for wheezing or shortness of breath albuterol (PROVENTIL) 2.5 mg /3 mL (0.083 %) nebulizer solution Use 3 mL via nebulizer every 4 hours as needed for Wheezing/Shortness of Breath. OVER 5-15 MINUTES. FOR WHEEZING AND SHORTNESS OF BREATH. nitroglycerin sublingual (NITROQUICK) 0.4 mg SL tablet Dissolve 1 tablet under the tongue as needed. FOR CHEST PAIN. IF NO RELIEF CALL 911 aspirin 81 mg cap Take by mouth. INCRUSE ELLIPTA 62.5 mcg/actuation inhaler inhale 1 puff as directed once daily methocarbamol (ROBAXIN) 750 mg tablet Take 750 mg by mouth four times daily. (Patient not taking: Reported on 12/21/2022) DULoxetine (CYMBALTA) 60 mg capsule Take 60 mg by mouth once daily. (Patient not taking: Reported on 12/21/2022) lamoTRIgine (LAMICTAL) 150 mg tablet Take 150 mg by mouth once daily. SYMBICORT 160-4.5 mcg/actuation inhaler inhale 2 puffs by mouth twice a day hydrocortisone 2.5 % cream Apply 1 application to affected area twice daily. zonisamide (ZONEGRAN) 100 mg capsule Take 1 capsule by mouth twice daily. 1 tab at HS for 3 days then starting 03/24/2017 then 1tab 2X day (Patient taking differently: Take 100 mg by mouth twice daily. ) No current facility-administered medications for this visit. Allergies: Augmentin [id number] [Amoxicillin-Pot Clavulanate], Nicoderm, and Primidone ROS: General (negative for fatigue, malaise, weight loss/gain) HEENT (negative for headache, earache, recent vision changes, sinus pain, sore throat) Respiratory (no recent shortness of breath, hemoptysis) CV (negative for chest tightness, palpitations) Musculoskeletal (see HPI) Psych (no depression, anxiety) Leidy Cuevas MD documented in this encounter [facility] Evaluation note Note Date & Type Note Facility documented in this encounter [facility] Evaluation note Note Date & Type Note Facility documented in this encounter [facility] Reason for referral (narrative) Diagnostic Procedure Only (Routine) - Pending Review Note Date & Type Note Facility Referral ID Status Reason Start Date Expiration Date Visits Requested Visits Authorized [id number] Pending Review Auto-Generat ed Referral 12/12/2022 01/11/2024 1 1 * Diagnostic Procedure Only (Routine) - Pending Review Specialty Diagnoses / Procedures Referred By Tung t Referred To Contact XR IMAGING Diagnoses Bilateral shoulder pain, unspecified chronicity Procedures XR SHOULDER GENERAL 3V OR MORE AP/TRUE AP/OTHER LEFT RADEX SHOULDER COMPLETE MINIMUM 2 VIEWS Leidy Cuevas MD [address] [place] [address] Xr Imaging Referral ID Status Reason Start Date Expiration Date Visits Requested Visits Authorized [id number] Pending Review Auto-Generat ed Referral 12/12/2022 01/11/2024 1 1 [facility] Summary Purpose Family History No Family History Records FoundNo Family History Records FoundNo Family History Records FoundNo Family History Records Found Advance Directives No Advanced Directives Records FoundNo Advanced Directives Records FoundNo Advanced Directives Records FoundNo Advanced Directives Records Found Medications Administered Section Inactive Administered Medications - up to 3 most recent administrations Medication Order MAR Action Action Date Dose Rate Site betamethasone acetate-betamethasone sodium phosphate 6 mg injection (CELESTONE) 6 mg, Injection - FOR ORTHO USE ONLY, ONE TIME INJECTION, 1 dose, Starting on Jannet 12/21/22 at 1102, Until Jannet 12/21/22 at 1102 Given 12/21/2022 11:02 AM EDT 6 mg Shoulder, Left betamethasone acetate-betamethasone sodium phosphate 6 mg injection (CELESTONE) 6 mg, Injection - FOR ORTHO USE ONLY, ONE TIME INJECTION, 1 dose, Starting on Jannet 12/21/22 at 1102, Until Jannet 12/21/22 at 1102 Given 12/21/2022 11:02 AM EDT 6 mg Shoulder, Right lidocaine (PF) 10 mg/mL (1 %) 5 mL injection (XYLOCAINE) 5 mL, Injection - FOR ORTHO USE ONLY, ONE TIME INJECTION, 1 dose, Starting on Jannet 12/21/22 at 1102, Until Jannet 7 at 1102 Given 12/21/2022 11:02 AM EDT 5 mL Shoulder, Left lidocaine (PF) 10 mg/mL (1 %) 5 mL injection (XYLOCAINE) 5 mL, Injection - FOR ORTHO USE ONLY, ONE TIME INJECTION, 1 dose, Starting on Jannet 12/21/22 at 1102, Until Jannet 12/21/22 at 1102 Given 12/21/2022 11:02 AM EDT 5 mL Shoulder, Right Additional Source Comments (unrecognized sect ion and content) No Status Records FoundNo Status Records FoundNo Status Records FoundNo Status Records Found INFORMATION SOURCE (unrecogn ized section and content) DATE CREATED AUTHOR AUTHOR'S ORGANIZ ATION 08/06/2019 [facility] DATE CREATED AUTHOR AUTHOR'S ORGANIZ ATION 08/06/2019 [facility] DATE CREATED AUTHOR AUTHOR'S ORGANIZ ATION 01/23/2023 [facility] Source Comments (unrecognize d section and content) In the event this informatio n is protected by the Federal Confidentiality of Alcohol and Drug Abuse Patient Records regulations: The Federal rules restrict any use of the information to criminally investigate or prosecute any alcohol or drug abuse patient.[facility] the event this information is protected by the Federal Confidentiality of Alcohol and Drug Abuse Patient Records regulations: The Federal rules restrict any use of the information to criminally investigate or prosecute any alcohol or drug abuse patient.[facility] Care Teams (unrecognized sec tion and content) Ream Cutter Relationship Specialty Start Date End Date Betty Beard MD [address] [place] [address] PCP - General Internal Medicine 04/22/19 Reason for Visit (unrecogniz ed section and content) FOR RECORDS PERTAINING TO PATIENTS WHO ARE OR HAVE BEEN ENROLLED IN A CHEMICAL DEPENDENCY/SUBSTANCEABUSE PROGRAM, SOME INFORMATION MAY BE OMITTED. This clinical summary was aggregated from multiple sources. Caution should be exercised in using it in the provision of clinical care. This summary normalizes information from multiple sources, and as a consequence, information in this document may materially change the coding, format and clinical context of patient data. In addition, data may be omitted in some cases. CLINICAL DECISIONS SHOULD BE BASED ON THE PRIMARY CLINICAL RECORDS. [facility] [employer] [facility]. provides no warranty or guarantee of the accuracy or completeness of information in this document.
== END | disposition home or self-care (01) ==
LOC: PSN 06-14 16:31
PROVIDERS: PCP Internal Medicine; Visit Provider Nurse Practitioner Acute Care
DX: J44.9 Chronic obstructive pulmonary disease, unspecified (principal)
CPT/HCPCS: 36600; 82803; 94618

== ENCOUNTER → 2023-06-22 | Outpatient (CLI) | payer MEDICARE, MEDICAID, SELFPAY ==
[2023-04-16 10:40] VITALS: BMI 21.0
--- NOTE | 2023-06-22 12:06 | ECHOD_ITS ---
Reason For Study: Dyspnea/SOB Procedure This was a 2D Doppler, Color Flow transthoracic echocardiogram. Best images taken from subcostal window. Patient Very SOB (6L O2),. Exam performed in department. Left Ventricle Normal LV size. Left ventricular systolic function is normal. The estimated ejection fraction is 55 %. Stage 1 diastolic dysfunction. No regional wall motion abnormalities noted. Right Ventricle Normal RV size. Normal systolic function. Atria Normal left atrium. Normal right atrium. Mitral Valve Normal mitral valve. Tricuspid Valve Normal tricuspid valve. Mild (1+) tricuspid valve insufficiency. Pulmonary artery systolic pressure is 42 mmHg. Aortic Valve Normal aortic valve. Pulmonic Valve Normal pulmonic valve. Great Vessels Normal aortic root. The pulmonary artery is normal size. Normal inferior vena cava. Pericardium/Pleural No pericardial effusion. Small left pleural effusion. MMode/2D Measurements & Calculations LVIDd: 4.1 cm IVSd: 0.84 cm TAPSE: 2.3 cm LVIDs: 2.6 cm LVPWd: 0.84 cm RVDd: 3.6 cm FS: 37.4 % Time Measurements MV dec time: 0.20 sec Doppler Measurements & Calculations MV E max roberto: 62.8 cm/sec Lat Peak E' Roberto: 13.4 cm/sec Med Peak E' Roberto: 11.8 cm/sec MV A max roberto: 93.9 cm/sec E/E' lat: 4.7 E/E' med: 5.3 MV E/A: 0.67 MV V2 max: 87.2 cm/sec MV P1/2t max roberto: 65.8 cm/sec PA V2 max: 161.1 cm/sec MV max P.0 mmHg MV P1/2t: 64.8 msec MV V2 mean: 52.0 cm/sec MV mean P.2 mmHg MV dec slope: 297.6 cm/sec2 MV V2 VTI: 14.2 cm MVA(P1/2t): 3.4 cm2 TR max roberto: 307.9 cm/sec TR max P.9 mmHg ECHO/Echo Complete Interpretation Summary Normal LV size. Left ventricular systolic function is normal. The estimated ejection fraction is 55 %. Stage 1 diastolic dysfunction. Pulmonary artery systolic pressure is 42 mmHg. Ordering Physician: Edna Umanzor Referring Physician: Edna Umanzor Performed By: George Marin RCS
== END | disposition home or self-care (01) ==
LOC: CVS 12:06
PROVIDERS: PCP Internal Medicine; Referring Provider Nurse Practitioner Acute Care; Visit Provider Nurse Practitioner Acute Care
DX: J44.9 Chronic obstructive pulmonary disease, unspecified (principal); R06.02 Shortness of breath
CPT/HCPCS: 93306

== ENCOUNTER → 2023-11-02 | Outpatient (CLI) | payer MEDICARE, MEDICAID, SELFPAY ==
[2023-04-16 10:40] VITALS: BMI 21.0
[2023-11-02 10:54] LABS: Hematocrit 38.7 % (40-54); Hemoglobin 12.2 g/dL (13.0-16.5); Mean Corp Hgb Conc 31.5 g/dL (32-36); Mean Corpuscular Volume 88.8 fL (80-94); Mean Platelet Vol. 11.1 fl (6.2-12.0); Platelet Count 273 K/mm3 (150-450); RBC Distribution Width CV 13.7 % (11.6-14.6); RBC Distribution Width SD 44.2 fl (35.1-43.9); Red Blood Count 4.36 M/mm3 (4.6-6.2); White Blood Count 5.3 K/mm3 (4.4-11.0)
[2023-11-02 11:19] LABS: Vitamin B12 387 pg/mL (211-911)
[2023-11-02 11:55] LABS: ALB/GLOB Ratio 1.1 RATIO (0.9-2.4); AST(SGOT) 17 U/L (15-37); Alanine Aminotransfer ALT/SGPT 23 U/L (16-61); Albumin, Serum 3.9 g/dL (3.2-5.0); Alkaline Phosphatase 83 U/L (45-117); Anion Gap 1 (5-15); BUN 18 mg/dL (7-18); BUN/Creat Ratio 19.5 RATIO (10-20); Calcium,Total 9.2 mg/dL (8.5-10.1); Chloride 106 mmol/L (98-107); Creatinine, Serum 0.92 mg/dL (0.70-1.30); EST Glomerular Filtration Rate 90 mL/min (>60); Est Glom Filt Rate - Afr Amer 109 mL/min (>60); Globulin 3.5 g/dL (2.2-4.2); Glucose 100 mg/dL (74-106); Protein, Total 7.4 g/dL (6.4-8.2); Sodium Level 137 mmol/L (136-145); Thyroid Stim Hormone (TSH) 0.79 uIU/mL (0.358-3.74)
--- NOTE | 2023-11-02 15:22 | MRI_ITS ---
STUDY: MRI CERVICAL SPINE WITH AND WITHOUT CONTRAST REASON FOR EXAM: Male, 58 years old. paresthesias; neck pain; cervical myelopathy, HX OF SX, PREVIOUS MRI TECHNIQUE: Standardized fat and water weighted pulse sequences were obtained in the sagittal and axial following administration of IV 10ML CLARISCAN. COMPARISON: Cervical spine radiograph July 16, 2019. MR cervical spine May 26, 2019. FINDINGS: Normal foramen magnum and brainstem-cervical cord junction. Normal craniovertebral junction. Normal anterior atlantoaxial articulation. Normal odontoid process. Normal cervical lordosis. Normal vertebral bodies and posterior osseous elements. C2-3: Normal endplates. Normal disc height, signal and morphology. Normal central canal and intervertebral neural foramina. C3-4: Normal endplates. Normal disc height, signal and morphology. Normal central canal and narrowed intervertebral neural foramina. C4-5: Normal endplates. Normal disc height, signal and morphology. Normal central canal and intervertebral neural foramina. C5-6: Normal endplates. Narrowed disc height, signal and morphology. Normal central canal and narrowed intervertebral neural foramina. Anterior plate and screws. C6-7: Normal endplates. Normal disc height, signal and morphology. Normal central canal and intervertebral neural foramina. Anterior plate and screws. C7-T1: Normal endplates. Normal disc height, signal and morphology. Normal central canal and intervertebral neural foramina. Normal cervical cord. Normal visualized soft tissue structures. MRI/Spine Cervical W/WO Contrast IMPRESSION: Anterior fixation C5-6 and 7. Moderate narrowing of the neural foramina bilaterally at C3-4. Electronically Signed: Jerrod Miller MD at 23:27 EDT Reading Location ID and State: [facility] / [place] Tel , Service support ,
[2023-11-05 15:31] LABS: Vitamin D 1,25-Dihydroxy 30.9 pg/mL (24.8-81.5)
== END | disposition home or self-care (01) ==
LOC: MRI 15:18
PROVIDERS: PCP Internal Medicine; Referring Provider Psychiatry & Neurology Neurology; Visit Provider Psychiatry & Neurology Neurology
DX: M54.2 Cervicalgia (principal); G95.9 Disease of spinal cord, unspecified; R20.2 Paresthesia of skin; E55.9 Vitamin D deficiency, unspecified
CPT/HCPCS: 36415; 72156; 80053; 82607; 82652; 82746; 83883; 84425; 84443; 85027; A9575

== ENCOUNTER → 2024-02-11 | Outpatient (CLI) | payer MEDICARE, MEDICAID, SELFPAY ==
[2023-04-16 10:40] VITALS: BMI 21.0
--- NOTE | 2024-02-11 12:32 | CT_ITS ---
EXAM: CT ABDOMEN AND PELVIS WITH INTRAVENOUS CONTRAST CLINICAL INDICATION: Right Groin Pain TECHNIQUE: Helically acquired images were obtained of the abdomen and pelvis with intravenous contrast. This CT exam was performed using one or more of the following dose reduction techniques: automated exposure control, adjustment of the mA and/or kV according to patient size, and/or use of iterative reconstruction technique. CONTRAST: Oral and amp; IV Readi-CAT and amp; 100mL Isovue-370 COMPARISON: No relevant prior studies available. FINDINGS: LOWER THORAX: Normal. Lung bases are clear. No cardiomegaly. No pericardial effusion. ABDOMEN: LIVER: Normal. Homogeneous. No focal mass. GALLBLADDER AND BILE DUCTS: Prominence of the common bile duct within the range of normal for postcholecystectomy patient. PANCREAS: Normal. No focal cystic or solid mass. SPLEEN: Normal. Normal size without focal cystic or solid mass. ADRENALS: Normal. No nodules. KIDNEYS AND URETERS: Normal. Normal renal size and position. No hydronephrosis. STOMACH AND BOWEL: Normal. No bowel distention. No focal inflammatory change. PELVIS: APPENDIX: Appendix is visualized and normal in appearance. BLADDER: Normal. REPRODUCTIVE: Unremarkable as visualized. No mass. ABDOMEN and PELVIS: INTRAPERITONEAL SPACE: Normal. No ascites or other fluid collection. No free air. BONES/JOINTS: No suspicious lytic or blastic abnormality. SOFT TISSUES: Normal. No discrete abdominal or pelvic wall hernia. No evidence of groin mass or fluid collection. VASCULATURE: Normal. Abdominal aorta is non-dilated. LYMPH NODES: Normal. No enlarged lymph nodes. CT/Abdomen/Pelvis WITH Contrast IMPRESSION: No acute abdominal or pelvic abnormality. Electronically Signed: Willie Syed MD at 9:45 EDT ,
== END | disposition home or self-care (01) ==
LOC: CT 12:31
PROVIDERS: PCP Internal Medicine; Referring Provider Internal Medicine; Visit Provider Internal Medicine
DX: R10.31 Right lower quadrant pain (principal)
CPT/HCPCS: 74177; Q9967

== ENCOUNTER → 2024-03-26 | Outpatient (CLI) | payer MEDICARE, MEDICAID, SELFPAY ==
[2023-04-16 10:40] VITALS: BMI 21.0
--- NOTE | 2024-03-26 09:59 | PCM.PR.HP ---
History of Present Illness General Arrival date:: 03/26/24 Arrival time:: 09:59 Date of Referral:: 03/17/24 Date of Evaluation: 03/26/24 Referring Physician: iKnza Tao Primary Diagnosis: COPD Gold Classification IV Very Severe History of Present Pulmonary Event mMRC Breathless Scale: When is the patient short of breath? Y/N Grade: Description of Breathlessness: 0 I only get breathless with strenuous exercise. 1 I get short of breath when hurrying on level ground or walking up a slight hill. 2 On level ground, I walk slower than people of the same age because of breathless, or have to stop for breath when walking at my own pace. 3 I stop for breath after walking 100 yards or after a few minutes on level ground. 4 I am too breathless to leave the house or I am breathless when dressing. Medications Home Medications carbamazepine 200 mg capsule,extended release [id number] 200 mg PO DAILY 03/01/16 lamotrigine 200 mg tablet 200 mg PO DAILY 02/09/20 Handicap Placard #1 ea 09/02/21 albuterol sulfate 2.5 mg/3 mL (0.083 %) solution for nebulization 2.5 mg (3 mL) inhalation Q6H PRN PRN Asthma #180 mL 12/05/22 aripiprazole 15 mg tablet 15 mg PO DAILY 12/15/22 fluvoxamine 100 mg tablet 100 mg PO BID 12/15/22 Wheel Chair with oxygen tank carrier #1 ea 04/23/23 ipratropium 0.5 mg-albuterol 3 mg (2.5 mg base)/3 mL nebulization soln 3 ml inhalation Q4H PRN PRN SOB &/OR WHEEZING #180 mL 04/23/23 buspirone 15 mg tablet 15 mg PO TID 09/03/23 albuterol sulfate 90 mcg/actuation aerosol inhaler 2 puff inhalation Q6H PRN PRN Asthma #18 grams 09/10/23 triamcinolone acetonide 0.5 % topical cream 1 applic topical DAILY PRN rash #15 grams 11/01/23 nitroglycerin 0.4 mg sublingual tablet (Nitrostat) 0.4 mg sublingual Q5-15M #25 tabs 11/22/23 cholecalciferol (vitamin D3) 1,250 mcg (50,000 unit) capsule 1,250 mcg PO QWEEK #14 caps 11/26/23 budesonide 160 mcg-glycopyr 9 mcg-formot 4.8 mcg/actuation HFA inhaler (Breztri Aerosphere) 2 inh inhalation BID #3 ea 01/04/24 Allergies Allergies amoxicillin trihydrate (From Augmentin) Adverse Reaction (Severe, Verified 03/03/24 11:17) Itching potassium clavulanate (From Augmentin) Adverse Reaction (Severe, Verified 03/03/24 11:17) Itching primidone Adverse Reaction (Severe, Verified 03/03/24 11:17) Itching nicotine (From Nicoderm CQ) Adverse Reaction (Verified 03/03/24 11:17) Itching Secretions Thin:: Yes Amount/Day:: 1 TSP Cough:: Yes AM: Yes Sleep Disorder Evaluation Hx of Sleep Apnea: No Do you snore loudly (louder than talking or can be heard through closed doors)?: No Do you often feel tired/ fatigued/ sleepy during daytime?: No Has anyone observed you stop breathing during sleep?: No History of Hypertension (for STOP score): Yes STOP Results: Negative Medical Utilization Medical Devices Do you use a spacer device with your inhalers?: No Medical Utilization Number of hospital visits in the last year?: 0 Number of emergency room visits in the last year?: 0 Do you see your physician on a regular schedule?: Yes How often?: every 3 months Advanced Directives Advanced Directives Power of Customer Counter Representative: Yes Living Will: Yes Advance Directives Information Provided: Yes Advance Directives on File: No DNR Order?:: No Past Medical History Covid-19 Screening Physicial Symptoms Other Clinical Concerns Exposure Risk Pertinent Comorbidities Has a chronic lung disease or moderate to severe asthma:: Yes Medical History Past Medical History (Updated 01/24/24 @ 13:[address] 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 Hemorrhoid K64.9 Blood in stool K92.1 COPD (chronic obstructive pulmonary disease) J44.9 Arthritis M19.90 Surgical History Past Surgical History History of left heart catheterization (2009) Z98.890 Hx of fusion of cervical spine Z98.1 C5- C7 Hx of carpal tunnel repair Z98.890 bilateral Hx of inguinal hernia repair Z98.890, Z87.19 Left Hx of cholecystectomy Z90.49 Hx of eye surgery Z98.890 bilateral Significant Family History Family History Mother Heart disease Hypertension COPD with emphysema Father Diabetes Hypertension Heart disease Brother Lung cancer Social History Smoking History Smoking Status: Former smoker Years Smokin Packs Smoked per Day: 3 (stopped 2 years ago) Hx Tobacco Use: Yes Alcohol Use Alcohol Usage: No Substance Abuse Hx Substance Use: Yes ([facility]) Occupation Occupation (List type of work in comments):: Unemployed Hobbies, Recreation, Social Activities Hobbies: None Functioning ADL/IADL Current Ability Current Ability: Dependent: Self-Care (e.g.,grooming, dressing, & bathing), Dependent: Ambulation, Dependent: Transfer and Dependent: Household tasks (e.g., light meal prep, laundry, shopping) Pt Functioning Prior to Problem Prior Functioning: Self-Care (e.g.,grooming, dressing, & bathing): Dependent, Ambulation: Dependent, Transfer: Dependent and Household tasks (e.g., light meal prep, laundry, shopping): Dependent Social Environment Status Marital Status: Current Living Arrangements Living Environment:: Family Children How many children do you have?: 3 Do any of your children live nearby?: Yes Safety Do you feel safe in your surroundings?: Yes Assistance Do you need any assistance at home?: no Review of Systems Review of Systems Review of Systems Respiratory: Reports SOB at Rest, SOB upon Exertion, Sputum production, Wheezing, Appetite, Normal and Fatigue; Denies Cough, Hemoptysis, Pleuritic Pain, Dizziness/Lightheadedness, PVD, Sexual changes or Sleep, Normal Pain Is Patient Pain Free?: No Pain Location: neck Pain Level: 12/25 Risk Factor Assessment Chief Complaint Chief Complaint: COPD Gold classification IV Very Severe Vital Signs Pulse Rate: 81 Pulse Ox: 96 Blood Pressure: 117/83 Obesity Height: 5 ft 5 in Weight:: 128 lb Weight in Pounds: 128.0 lbs Body Mass Index (BMI): 21.2 Nutritional Referral for Obesity: No Physical Activity Physical Inactivity: Recreational activity Risk Stratification Risk Guidelines: Lowest Risk: Risk Factor for Obesity, Moderate Risk: Risk Factor for Smoking, Risk Factor for Dyslipidemia and Risk Factor for Diabetes and Highest Risk: Risk Factor for Hypertension, Risk Factor for Sedentary Lifestyle and Risk Factor for Depression For Smoking Smoking Risk Guidelines For Dyslipidemia Dyslipidemia Risk Guidelines For Diabetes Mellitus Diabetes Risk Guidelines For Obesity/Overweight Obesity/Overweight Risk Guidelines For Hypertension Hypertension Risk Guidelines For Sedentary Lifestyle Sedentary Lifestyle Risk Guidelines For Depression Depression Risk Guidelines Motivation Motivation to Participate On a scale of 1 to 10, how prepared are you to commit to attending program?: 8 What do you see as barriers to successfully being able to complete the program?: nothing What do you see as the benefits of succesfully completing the program? In other words, what do you hope to get out of participating in the program?: breathing better Are there issues you are dealing with that will interfere with completing the program?: no Do you have a spouse or signficant other, family or friends who will help support you to complete the program?: yes Diagnostic Data Review 6 Minute Walk Test 6 Minute Walk Test: yes pt required 6 L of O2 Pulmonary Function Test FEV1:: 24 FVC:: 80 FEV1/FVC%:: 30 Gold Classification: Gold class IV(very severe COPD)with FEV1/FVC <70, FEV1 <30% predicted
--- NOTE | 2024-03-26 10:06 | PR.ITP_ITS ---
General Information2 General Information Admitting Diagnosis: COPD Gold Classification IV Very Severe Gold Classification:: GOLD 4: Very Severe PFT FEV1:: 24 FVC:: 80 FEV1/FVC%:: 30 Personal Learning Style/Barriers Personal Learning Style:: Audio/Visual Barriers to Learning: None Stage of change r/t lifestyle modifications: Contemplation Education/Goals [place] Patient Goals: Increase muscle strength: Initial Assessment, Experience less dyspnea: Initial Assessment, Improve energy level: Initial Assessment, Improve the ability to cope with ADLs: Initial Assessment, Control panic/anxiety: Initial Assessment, Improve my quality of life: Initial Assessment and Reduce Stress/relaxation techniques: Initial Assessment Exercise - Initial Assessment Visit Date of Eval: 03/26/24 (initial eval ) Problem/Goals Problems: Deconditioning Goals:: Aerobic exercise 30-60 mins x 12 weeks [36 sessions] Functional Capacity Test Number of feet walked: 600 Lowest SPO2 %: 87 O2 L/M: 6 Physician Prescribed Exercise Modalities: Treadmill, [employer] AD-7, [employer] Stepper, [employer] Pro-II Ergometer and [employer] Lateral [employer] Architect Frequency (days/week): 3 Duration (Minutes):: 30-45 Intensity: 60-80% of age predicted maximum heart rate reserve Current METSs:: 2 Target HR:: 122 (97-122) EKG Type: NSR Plan Plan and Plan to Review:: Benefits of exercise, Core components of exercise, How to measure dyspnea level, How to monitor dyspnea level, Exercise intensity, Exercise safety guideline, Home exercise guidelines and Jacqueline: 3-4/11-13 Home Exercise Mode: Walking Nutrition/Wt Mgmt - Initial Visit Date of Eval: 03/26/24 (initial eval ) Problems/Goals Goals: Prevent further wt loss Weight Management Admit Height:: 5 ft 5 in Admit Weight:: 128 lb Admit BMI:: 21.2 Intervention Referral to dietitian:: No Will attend diet classes:: Yes Intervention/Plan: Instruct on ideal BMI & set weight loss goal w/patient, Assist pt to ID & incorporate diet changes for weight loss by S9, Refer to Structured Weight Loss program as appropriate, Encourage goal of using 250- 300dcal per session for weight loss and Other additional plan/interventions Plan Nutrition Plan: Yes: Review BMI or WC & identify target wt & strategies for wt control, Yes: Nutrition education class:, Yes: Medication education class [Prednisone]:, Yes: Weight control education class:, Yes: Education re: Need for ongoing weight monitoring, Yes: Food diary: and Yes: Physical activity log: Nutrition/Wt Mgmt - 30-Day Weight Management Height: 5 ft 5 in Weight:: 128 lb BMI: 21.2 Nutrition/Wt Mgmt - 60-Day Weight Management Height: 5 ft 5 in Weight:: 128 lb BMI: 21.2 Nutrition/Wt Mgmt - 90-Day Weight Management Height: 5 ft 5 in Weight:: 128 lb BMI: 21.2 Nutrition/Wt Mgmt - Final Weight Management Height: 5 ft 5 in Weight:: 128 lb BMI: 21.2 Psychosocial - Initial Assess Visit Date of Eval: 03/26/24 (initial eval ) Problems/Goals History of Emotional Disorders: Depression (Bipolar disorder) Self-reported stressors: Recent Illness (pt states depression is under control) Psychosocial Test Referred to MD for counseling:: No Referral to Behavioral Health PS - Interventions: Yes: Attend Stress Management Classes Intervention/Plan: See List Interventions/Plan:: Assess stressors,coping strategies & signs of derpression on admission, Instruct/assist pt to develop coping & personal stress Mgt strategies, Refer to Behavioral Health if appropriate, Refer to Physician if appropriate, Instruct patient to recognize signs & symptoms of depression, Instruct patient to recog and Other additional plan/intervention Psychosocial - 30-Day Problems/Goals History of Emotional Disorders: Depression (Bipolar disorder) Self-reported stressors: Recent Illness (pt states depression is under control) Psychosocial Test Referred to MD for counseling:: No Referral to Behavioral Health PS - Interventions: Yes: Attend Stress Management Classes Plan Interventions/Plan:: Assess stressors,coping strategies & signs of derpression on admission, Instruct/assist pt to develop coping & personal stress Mgt strategies, Refer to Behavioral Health if appropriate, Refer to Physician if appropriate, Instruct patient to recognize signs & symptoms of depression, Instruct patient to recog and Other additional plan/intervention Psychosocial - 60-Day Problems/Goals History of Emotional Disorders: Depression (Bipolar disorder) Self-reported stressors: Recent Illness (pt states depression is under control) Psychosocial Test Referred to MD for counseling:: No Referral to Behavioral Health PS - Interventions: Yes: Attend Stress Management Classes Plan Interventions/Plan:: Assess stressors,coping strategies & signs of derpression on admission, Instruct/assist pt to develop coping & personal stress Mgt strategies, Refer to Behavioral Health if appropriate, Refer to Physician if appropriate, Instruct patient to recognize signs & symptoms of depression, Instruct patient to recog and Other additional plan/intervention Psychosocial - 90-Day Problems/Goals History of Emotional Disorders: Depression (Bipolar disorder) Self-reported stressors: Recent Illness (pt states depression is under control) Psychosocial Test Referred to MD for counseling:: No Referral to Behavioral Health PS - Interventions: Yes: Attend Stress Management Classes Plan Interventions/Plan:: Assess stressors,coping strategies & signs of derpression on admission, Instruct/assist pt to develop coping & personal stress Mgt strategies, Refer to Behavioral Health if appropriate, Refer to Physician if appropriate, Instruct patient to recognize signs & symptoms of depression, Instruct patient to recog and Other additional plan/intervention Psychosocial - Final Assess Problems/Goals History of Emotional Disorders: Depression (Bipolar disorder) Self-reported stressors: Recent Illness (pt states depression is under control) Psychosocial Test Referred to MD for counseling:: No Referral to Behavioral Health PS - Interventions: Yes: Attend Stress Management Classes Plan Interventions/Plan:: Assess stressors,coping strategies & signs of derpression on admission, Instruct/assist pt to develop coping & personal stress Mgt strategies, Refer to Behavioral Health if appropriate, Refer to Physician if appropriate, Instruct patient to recognize signs & symptoms of depression, Instruct patient to recog and Other additional plan/intervention Oxygen & Oxygen Titration Init Visit Date of Eval: 03/26/24 (initial eval ) Initial Assessment Oxygen on Admission: Continuous home use (pt is on 3 L at rest and 6 L with exertion ) Patient Reports:: Non-productive cough Plans Plan: Monitor SpO2 rest & with exercise, Recommend appropriate FiO2 to Pt/MD, Assist to contact DME for O2, Train appropriate O2 use at rest, Train appropriate O2 use with exercise and Train O2 safety & systems Reviewed prescribed medications:: Purpose, Schedule, Side effects and Importance of compliance Instruct correct technique/timing & care:: MDI, DPI, Nebulizer and Return demo use of inhaler Bronchial Hygiene Plan: Controlled cough, CPT, Vibratory PEP device, VEST, Role of exercise in secretion clearance, NS Nasal spray, Hydration, Hand hygiene, Evaluate sputum, When to call MD, Signs/symptoms to report:, Influenza/Pneumovax vaccines and Cleaning of respiratory equipment Core Components - Initial Visit Date of Eval: 03/26/24 (initial eval ) Hypertension Hypertension Diagnosis:: Not Applicable BP: 117/83 [place] [employer] Hypertension Guidelines Tobacco - Initial Assessment Tobacco Program Goals Learning Barriers: Ready to Learn Do you have family support?: Yes Tobacco Use: Non-smoker How long ago did you quit using tobacco products?: Greater than or equal to 6 months ago How many cigarettes do you smoke per day?: 60 Years Smokin Do you use smokeless tobacco?: No Gave Education Materials For:: Tobacco Triggers, Pulmonary Disease, Risk Factors, Breathing Techniques, Medical Compliance, Pulmonary A&P, Exacerbation Signs & Symptoms and Stress & Relaxation Exacerbation Mgmt & Airway Clearance Hypoxemia Goals:: Using O2 as Rx's safely Patient Reports:: Non-productive cough Plan: Monitor SpO2 rest & with exercise, Recommend appropriate FiO2 to Pt/MD, Assist to contact DME for O2, Train appropriate O2 use at rest, Train appropriate O2 use with exercise and Train O2 safety & systems Instruct correct technique/timing & care:: MDI, DPI, Nebulizer and Return demo use of inhaler Bronchial Hygiene Plan: Controlled cough, CPT, Vibratory PEP device, VEST, Role of exercise in secretion clearance, NS Nasal spray, Hydration, Hand hygiene, Evaluate sputum, When to call MD, Signs/symptoms to report:, Influenza/Pneumovax vaccines and Cleaning of respiratory equipment Medication Interventions/plans: Instruct on medication effects & side effects, Review medication list w/patient every two weeks and Instruct importance of taking meds as ordered & assist problem solving Medication Goals: Adherence to prescribed medications and Correct technique/timing & care of MDI, DPI, nebulizer, and spacer. Does pt report taking home meds as prescribed?: Yes Medications: Yes: NEB and Yes: Spacer Reviewed prescribed medications:: Purpose, Schedule, Side effects and Importance of compliance Diabetes Diabetes:: No Referral to dietitian:: No Will attend diet classes:: Yes Core Components - 30 DAYS Hypertension Hypertension Diagnosis:: Not Applicable Resting Blood Pressure:: 117/83 [place] [employer] Hypertension Guidelines Tobacco - 30-Day Tobacco Program Goals Do you have family support?: Yes Tobacco Use: Non-smoker How many cigarettes do you smoke per day?: 60 Do you use smokeless tobacco?: No Gave Education Materials For:: Tobacco Triggers, Pulmonary Disease, Risk Factors, Breathing Techniques, Medical Compliance, Pulmonary A&P, Exacerbation Signs & Symptoms and Stress & Relaxation Diabetes Diabetes:: No Core Components - 60 DAYS Hypertension Hypertension Diagnosis:: Not Applicable Resting Blood Pressure:: 117/83 [place] [employer] Hypertension Guidelines Tobacco - 60-Day Tobacco Program Goals Do you have family support?: Yes Tobacco Use: Non-smoker How many cigarettes do you smoke per day?: 60 Do you use smokeless tobacco?: No Gave Education Materials For:: Tobacco Triggers, Pulmonary Disease, Risk Factors, Breathing Techniques, Medical Compliance, Pulmonary A&P, Exacerbation Signs & Symptoms and Stress & Relaxation Diabetes Diabetes:: No Core Components - 90 DAYS Hypertension Hypertension Diagnosis:: Not Applicable Resting Blood Pressure:: 117/83 [place] [employer] Hypertension Guidelines Tobacco - 90-Day Tobacco Program Goals Do you have family support?: Yes Tobacco Use: Non-smoker How many cigarettes do you smoke per day?: 60 Do you use smokeless tobacco?: No Gave Education Materials For:: Tobacco Triggers, Pulmonary Disease, Risk Factors, Breathing Techniques, Medical Compliance, Pulmonary A&P, Exacerbation Signs & Symptoms and Stress & Relaxation Diabetes Diabetes:: No Core Components - Final Hypertension Hypertension Diagnosis:: Not Applicable Resting Blood Pressure:: 117/83 [place] [employer] Hypertension Guidelines Tobacco - Final Tobacco Program Goals Do you have family support?: Yes Tobacco Use: Non-smoker How many cigarettes do you smoke per day?: 60 Do you use smokeless tobacco?: No Diabetes Diabetes:: No Patient Health Questionnaire PHQ-9 Screening Initial Assessment: 1. Little interest or pleasure in doing things: Several days 2. Feeling down, depressed, or hopeless: Several days 3. Trouble falling or staying asleep, or sleeping too much: Several days 4. Feeling tired or having little energy: Several days 5. Poor appetite or overeating: Not at all 6. Feeling bad about yourself -- or that you are a failure or have let yourself or your family down: Not at all 7. Trouble concentrating on things, such as reading the newspaper or watching television: Not at all 8. Moving or speaking so slowly that other people could have noticed. Or the opposite - being so fidgety or restless that you have been moving around a lot more than usual: Not at all 9. Thoughts that you would be better off , or of hurting yourself in some way: Not at all How difficult have these problems made it for you to do your work, take care of things at home, or get along with other people?: Very difficult Total Score: 4 Knowledge Questionaire (BCKQ) Information Information: [place] COPD Knowledge Questionnaire (BCKQ) This questionnaire is designed to find out what you know about your lung problem. It should be completed without help form anyone else. This usually takes between 10 and 20 minutes. Your answers will help us to find out what information you need to help you to understand and manage your lung condition. [place] which you think is the correct answer. COPD Assessment Test [CAT] Questions Never cough = 0, Cough all the time = 5: 2 No phlegm = 0, Chest full of phlegm = 5: 2 No chest tightness = 0, Chest very tight = 5: 3 No breathless w/exertion = 0, Very breathless w/exertion = 5: 5 No limitations w/activity = 0, Very limited w/activity = 5: 5 Confident leaving home = 0, Not at all confident = 5: 1 Sleep soundly = 0, Don't sleep soundly = 5: 4 Lots of energy = 0, No energy at all = 5: 4 Total CAT score:: 26 Self-Efficacy 6-Item Scale Initial Assessment: We would like to know how confident you are in doing certain activities. Please select your confidence level for: Fatigue Select Number: 3 Physical Discomfort or Pain Select Number: 5 Emotional Distress Select Number: 5 Other Symptoms or Health Problems Select Number: 5 Different Tasks and Activities Select Number: 7 Medication Select Number: 4 Total Score:: 4 Nutrition Survey Nutrition Survey Instructions Scoring Instructions Nutrition Survey Initial: Have you lost >10 lbs over the past 2 months without trying?: No Are you following a special diet at home for diabetes, low fat, or low salt?: No Are you interested in meeting with a dietitian for help understanding your diet?: No Do you eat less than 3 meals a day?: No Do you eat fatty meats (ryan, sausage, ribs, etc), fried foods, desserts, large amounts of salad dressings, margarine, butter, or cheese most days?: Yes Do you have food allergies? [Enter types in comment field]: No Do you eat in restaurants more than 3 times a week?: No Do you season food with salt, seasoning salt, or garlic salt?: No Do you used canned, boxed, frozen meals, or soups, seasoning packets?: No Total Score:: 1
[2024-03-26 10:42] VITALS: BP 117/83; PULSE 81; O2SAT 96
[2024-03-26 10:48] VITALS: BP 117/83
[2024-03-26 11:03] VITALS: BMI 21.2
[2024-03-26 11:13] VITALS: BMI 21.2
== END | disposition home or self-care (01) ==
PROVIDERS: PCP Internal Medicine
DX: J44.9 Chronic obstructive pulmonary disease, unspecified (principal)

== ENCOUNTER 2024-04-14 10:00 | Outpatient (RCR) | payer MEDICARE, MEDICAID, SELFPAY ==
[2024-03-26 11:13] VITALS: BMI 21.2
== END 2024-04-17 23:59 ==
LOC: PR 10:00
PROVIDERS: PCP Internal Medicine
DX: J44.9 Chronic obstructive pulmonary disease, unspecified (principal)
CPT/HCPCS: 97150; 94626

== ENCOUNTER 2024-05-14 10:00 | Outpatient (RCR) | payer MEDICARE, MEDICAID, SELFPAY ==
[2024-03-26 11:13] VITALS: BMI 21.2
--- NOTE | 2024-04-25 15:14 | PCM.PR.TP ---
Exercise - Initial Assessment Visit Session Number:: 10 Physician Prescribed Exercise Modalities: Treadmill, SciFit Stepper and SciFit Pro-II Ergometer Current METSs:: 3 Target HR:: 122 (97-122) Current RPD:: 3 Maximum Exercise HR:: 118 Resting Blood Pressure: 140/80 Maximum Exercise Blood Pressure: 140/80 Minimum SpO2 with exercise: 87 EKG Type: NSR to ST with rare ectopy Nutrition/Wt Mgmt - Initial Visit Session Number:: 10 Weight Management Admit Height:: 5 ft 5 in Admit Weight:: 128 lb Admit BMI:: 21.2 Nutrition/Wt Mgmt - 30-Day Visit Date of Eval: 04/25/24 Session Number:: 10 Weight Management Height: 5 ft 5 in Weight:: 128 lb BMI: 21.2 Weight Goals Progress:: Goal met (pt is at a helathy weight) Nutrition/Wt Mgmt - 60-Day Visit Session Number:: 10 Weight Management Height: 5 ft 5 in Weight:: 128 lb BMI: 21.2 Nutrition/Wt Mgmt - 90-Day Visit Session Number:: 10 Weight Management Height: 5 ft 5 in Weight:: 128 lb BMI: 21.2 Nutrition/Wt Mgmt - Final Visit Session Number:: 10 Weight Management Height: 5 ft 5 in Weight:: 128 lb BMI: 21.2 Psychosocial - Initial Assess Visit Session Number:: 10 Problems/Goals History of Emotional Disorders: Depression (Bipolar disorder) Self-reported stressors: Recent Illness (pt states his depression is under control) Referral to Behavioral Health PS - Interventions: Yes: Attend Stress Management Classes Intervention/Plan: See List Interventions/Plan:: Assess stressors,coping strategies & signs of derpression on admission, Instruct/assist pt to develop coping & personal stress Mgt strategies, Refer to Behavioral Health if appropriate, Refer to Physician if appropriate, Instruct patient to recognize signs & symptoms of depression, Instruct patient to recog and Other additional plan/intervention Psychosocial - 30-Day Visit Date of Eval: 04/25/24 Session Number:: 10 Problems/Goals History of Emotional Disorders: Depression (Bipolar disorder) Self-reported stressors: Recent Illness (pt states his depression is under control) Referral to Behavioral Health PS - Interventions: Yes: Attend Stress Management Classes Plan Interventions/Plan:: Assess stressors,coping strategies & signs of derpression on admission, Instruct/assist pt to develop coping & personal stress Mgt strategies, Refer to Behavioral Health if appropriate, Refer to Physician if appropriate, Instruct patient to recognize signs & symptoms of depression, Instruct patient to recog and Other additional plan/intervention Psychosocial - 60-Day Visit Session Number:: 10 Problems/Goals History of Emotional Disorders: Depression (Bipolar disorder) Self-reported stressors: Recent Illness (pt states his depression is under control) Referral to Behavioral Health PS - Interventions: Yes: Attend Stress Management Classes Plan Interventions/Plan:: Assess stressors,coping strategies & signs of derpression on admission, Instruct/assist pt to develop coping & personal stress Mgt strategies, Refer to Behavioral Health if appropriate, Refer to Physician if appropriate, Instruct patient to recognize signs & symptoms of depression, Instruct patient to recog and Other additional plan/intervention Psychosocial - 90-Day Visit Session Number:: 10 Problems/Goals History of Emotional Disorders: Depression (Bipolar disorder) Self-reported stressors: Recent Illness (pt states his depression is under control) Referral to Behavioral Health PS - Interventions: Yes: Attend Stress Management Classes Plan Interventions/Plan:: Assess stressors,coping strategies & signs of derpression on admission, Instruct/assist pt to develop coping & personal stress Mgt strategies, Refer to Behavioral Health if appropriate, Refer to Physician if appropriate, Instruct patient to recognize signs & symptoms of depression, Instruct patient to recog and Other additional plan/intervention Psychosocial - Final Assess Visit Session Number:: 10 Problems/Goals History of Emotional Disorders: Depression (Bipolar disorder) Self-reported stressors: Recent Illness (pt states his depression is under control) Referral to Behavioral Health PS - Interventions: Yes: Attend Stress Management Classes Plan Interventions/Plan:: Assess stressors,coping strategies & signs of derpression on admission, Instruct/assist pt to develop coping & personal stress Mgt strategies, Refer to Behavioral Health if appropriate, Refer to Physician if appropriate, Instruct patient to recognize signs & symptoms of depression, Instruct patient to recog and Other additional plan/intervention Oxygen & Oxygen Titration Init Visit Session Number:: 10 Initial Assessment SpO2:: 87 Oxygen & Oxygen Titration 30D Visit Date of Eval: 04/25/24 Session Number:: 10 Reassessment Reassessment- 30 Days: Demonstrate knowledge of O2 Rx at rest & w/exercise, Using O2 as Rx'd, Has home O2 as Rx'd and Uses port O2 as Rx'd Breath Sounds:: Diminished SpO2:: 87 Oxygen & Oxygen Titration 60D Visit Date of Eval: 04/25/24 Session Number:: 10 Reassessment Breath Sounds:: Diminished SpO2:: 87 Oxygen & Oxygen Titration 90D Visit Date of Eval: 04/25/24 Session Number:: 10 Reassessment Breath Sounds:: Diminished SpO2:: 87 Oxygen & Oxygen Titration THUAN Visit Date of Eval: 04/25/24 Session Number:: 10 Reassessment Breath Sounds:: Diminished SpO2:: 87 Core Components - Initial Visit Session Number:: 10 Hypertension BP: 140/80 [place] [employer] Hypertension Guidelines Blood Pressure: 130/76 Outcomes/Goals: Able to verbalize/achieve optimal blood pressure <130/80, Incorporates diet changes & exercise for blood pressure control by DC and Other additional outcomes/goals Tobacco - Initial Assessment Tobacco Program Goals Stages of Change:: Maintenance Do you have family support?: Yes Tobacco Use: Non-smoker Gave Education Materials For:: Tobacco Triggers, Pulmonary Disease, Risk Factors, Breathing Techniques, Medical Compliance, Pulmonary A&P, Exacerbation Signs & Symptoms and Stress & Relaxation Diabetes Diabetes:: No Core Components - 30 DAYS Visit Date of Eval: 04/25/24 Session Number:: 10 Hypertension Resting Blood Pressure:: 140/80 [place] [employer] Hypertension Guidelines Peak Exercise Blood Pressure:: 130/76 Outcomes/Goals: Able to verbalize/achieve optimal blood pressure <130/80, Incorporates diet changes & exercise for blood pressure control by DC and Other additional outcomes/goals Interventions/plan: Instruct on optimal blood pressure, hypertension & medications, Instruct on effects of sodium, alcohol, stress, exercise &hypertension and Other additional plan/interventions 30 day Reassessments:: Progressing Reassessment Notes & Comments:: pt's bp's have been slightly elevated. Will continue to monitor. Tobacco - 30-Day Tobacco Program Goals Stages of Change:: Maintenance Learning Barriers: Participates in education Do you have family support?: Yes Tobacco Use: Non-smoker Gave Education Materials For:: Tobacco Triggers, Pulmonary Disease, Risk Factors, Breathing Techniques, Medical Compliance, Pulmonary A&P, Exacerbation Signs & Symptoms and Stress & Relaxation 30-day Reassessments:: Met Reassessment Notes & Comments:: Pt is currently a nonsmoker Exacerbation Mgmt & Airway Clearance Reassessment: Demonstrates knowledge of O2 Rx at rest, Demonstrates knowledge of O2 Rx with exercise, Using O2 as prescribed, Has home O2 as prescribed and Uses port O2 as prescribed Bronchial Hygiene Plan: Yes: Pt demonstrates correctly for effective cough, Yes: Pt demo correct for CPT, Yes: Pt demo correct for device, Yes: Pt demo correct for NS nasal spray, Yes: Pt demo correct for sputum management, Yes: Pt demo correct for improved hydration, Yes: Pt demo correct for hand hygiene, Yes: Pt demo correct for evalute sputum, Yes: Pt demo correct for verbalize when to call MD and Yes: Pt demo correct for cleaning of respiratory equipment Medication Medication list reviewed:: Yes Taking medications 100% of the time:: Met Medication reassessment: Yes: Pt demonstrates correct technique timing for MDI, Yes: Pt demonstrates correct technique timing for DPI, Yes: Pt demonstrates correct technique timing for NEB and Yes: Pt demonstrates correct technique timing for spacer Diabetes Diabetes:: No Core Components - 60 DAYS Visit Session Number:: 10 Hypertension Resting Blood Pressure:: 140/80 [place] [employer] Hypertension Guidelines Peak Exercise Blood Pressure:: 130/76 Outcomes/Goals: Able to verbalize/achieve optimal blood pressure <130/80, Incorporates diet changes & exercise for blood pressure control by DC and Other additional outcomes/goals Interventions/plan: Instruct on optimal blood pressure, hypertension & medications, Instruct on effects of sodium, alcohol, stress, exercise &hypertension and Other additional plan/interventions 60 day Reassessments:: Progressing Reassessment Notes & Comments:: pt's bp's have been slightly elevated. Will continue to monitor. Tobacco - 60-Day Tobacco Program Goals Stages of Change:: Maintenance Learning Barriers: Participates in education Do you have family support?: Yes Tobacco Use: Non-smoker Gave Education Materials For:: Tobacco Triggers, Pulmonary Disease, Risk Factors, Breathing Techniques, Medical Compliance, Pulmonary A&P, Exacerbation Signs & Symptoms and Stress & Relaxation 60-day Reassessments:: Met Reassessment Notes & Comments:: Pt is currently a nonsmoker Exacerbation Mgmt & Airway Clearance Reassessment: Demonstrates knowledge of O2 Rx at rest, Demonstrates knowledge of O2 Rx with exercise, Using O2 as prescribed, Has home O2 as prescribed and Uses port O2 as prescribed Bronchial Hygiene Plan: Yes: Pt demonstrates correctly for effective cough, Yes: Pt demo correct for CPT, Yes: Pt demo correct for device, Yes: Pt demo correct for NS nasal spray, Yes: Pt demo correct for sputum management, Yes: Pt demo correct for improved hydration, Yes: Pt demo correct for hand hygiene, Yes: Pt demo correct for evalute sputum, Yes: Pt demo correct for verbalize when to call MD and Yes: Pt demo correct for cleaning of respiratory equipment Medication Taking medications 100% of the time:: Met Medication reassessment: Yes: Pt demonstrates correct technique timing for MDI, Yes: Pt demonstrates correct technique timing for DPI, Yes: Pt demonstrates correct technique timing for NEB and Yes: Pt demonstrates correct technique timing for spacer Diabetes Diabetes:: No Core Components - 90 DAYS Visit Session Number:: 10 Hypertension Resting Blood Pressure:: 140/80 [place] [employer] Hypertension Guidelines Peak Exercise Blood Pressure:: 130/76 Outcomes/Goals: Able to verbalize/achieve optimal blood pressure <130/80, Incorporates diet changes & exercise for blood pressure control by DC and Other additional outcomes/goals Interventions/plan: Instruct on optimal blood pressure, hypertension & medications, Instruct on effects of sodium, alcohol, stress, exercise &hypertension and Other additional plan/interventions 90 day Reassessments:: Progressing Reassessment Notes & Comments:: pt's bp's have been slightly elevated. Will continue to monitor. Tobacco - 90-Day Tobacco Program Goals Stages of Change:: Maintenance Learning Barriers: Participates in education Do you have family support?: Yes Tobacco Use: Non-smoker Gave Education Materials For:: Tobacco Triggers, Pulmonary Disease, Risk Factors, Breathing Techniques, Medical Compliance, Pulmonary A&P, Exacerbation Signs & Symptoms and Stress & Relaxation 90-day Reassessments:: Met Reassessment Notes & Comments:: Pt is currently a nonsmoker Exacerbation Mgmt & Airway Clearance Bronchial Hygiene Plan: Yes: Pt demonstrates correctly for effective cough, Yes: Pt demo correct for CPT, Yes: Pt demo correct for device, Yes: Pt demo correct for NS nasal spray, Yes: Pt demo correct for sputum management, Yes: Pt demo correct for improved hydration, Yes: Pt demo correct for hand hygiene, Yes: Pt demo correct for evalute sputum, Yes: Pt demo correct for verbalize when to call MD and Yes: Pt demo correct for cleaning of respiratory equipment Medication Medication reassessment: Yes: Pt demonstrates correct technique timing for MDI, Yes: Pt demonstrates correct technique timing for DPI, Yes: Pt demonstrates correct technique timing for NEB and Yes: Pt demonstrates correct technique timing for spacer Diabetes Diabetes:: No Core Components - Final Visit Session Number:: 10 Hypertension Resting Blood Pressure:: 140/80 [place] [employer] Hypertension Guidelines Peak Exercise Blood Pressure:: 130/76 Outcomes/Goals: Able to verbalize/achieve optimal blood pressure <130/80, Incorporates diet changes & exercise for blood pressure control by DC and Other additional outcomes/goals Tobacco - Final Tobacco Program Goals Stages of Change:: Maintenance Learning Barriers: Participates in education Do you have family support?: Yes Tobacco Use: Non-smoker Exacerbation Mgmt & Airway Clearance Bronchial Hygiene Plan: Yes: Pt demonstrates correctly for effective cough, Yes: Pt demo correct for CPT, Yes: Pt demo correct for device, Yes: Pt demo correct for NS nasal spray, Yes: Pt demo correct for sputum management, Yes: Pt demo correct for improved hydration, Yes: Pt demo correct for hand hygiene, Yes: Pt demo correct for evalute sputum, Yes: Pt demo correct for verbalize when to call MD and Yes: Pt demo correct for cleaning of respiratory equipment Medication Medication reassessment: Yes: Pt demonstrates correct technique timing for MDI, Yes: Pt demonstrates correct technique timing for DPI, Yes: Pt demonstrates correct technique timing for NEB and Yes: Pt demonstrates correct technique timing for spacer Diabetes Diabetes:: No Patient Health Questionnaire PHQ-9 Screening 30-Day Re-eval Assessment: 1. Little interest or pleasure in doing things: Several days 2. Feeling down, depressed, or hopeless: Several days 3. Trouble falling or staying asleep, or sleeping too much: Several days 4. Feeling tired or having little energy: Several days 5. Poor appetite or overeating: Not at all 6. Feeling bad about yourself -- or that you are a failure or have let yourself or your family down: Not at all 7. Trouble concentrating on things, such as reading the newspaper or watching television: Not at all 8. Moving or speaking so slowly that other people could have noticed. Or the opposite - being so fidgety or restless that you have been moving around a lot more than usual: Not at all 9. Thoughts that you would be better off , or of hurting yourself in some way: Not at all How difficult have these problems made it for you to do your work, take care of things at home, or get along with other people?: Very difficult Total Score: 4 Knowledge [place] (BCKQ) Information Information: [place] COPD Knowledge Questionnaire (BCKQ) This questionnaire is designed to find out what you know about your lung problem. It should be completed without help form anyone else. This usually takes between 10 and 20 minutes. Your answers will help us to find out what information you need to help you to understand and manage your lung condition. [place] the [place] which you think is the correct answer. Self-Efficacy 6-Item Scale 30-Day Re-eval Assessment: We would like to know how confident you are in doing certain activities. Please select your confidence level for: Fatigue Select Number: 3 Physical Discomfort or Pain Select Number: 5 Emotional Distress Select Number: 5 Other Symptoms or Health Problems Select Number: 5 Different Tasks and Activities Select Number: 7 Medication Select Number: 4 Total Score:: 4 Nutrition Survey Nutrition Survey Instructions Scoring Instructions
[2024-04-25 15:30] VITALS: BP 130/76; BP 140/80; O2SAT 87; BMI 21.2
--- NOTE | 2024-04-28 10:11 | CCN.REFER ---
AGREEABLE TO [facility].
== END 2024-05-17 23:59 ==
LOC: PR 10:00
PROVIDERS: PCP Internal Medicine
DX: J44.9 Chronic obstructive pulmonary disease, unspecified (principal)
CPT/HCPCS: 97150; 94626

== ENCOUNTER 2024-06-16 10:00 | Outpatient (RCR) | payer MEDICARE, MEDICAID, SELFPAY ==
[2024-04-25 15:30] VITALS: BMI 21.2
[2024-05-18 00:52] VITALS: BP 130/76; BP 140/80; BMI 21.2
--- NOTE | 2024-05-23 10:41 | PCM.PR.TP ---
Exercise - Initial Assessment Visit Session Number:: 21 Physician Prescribed Exercise Modalities: Treadmill, SciFit Stepper and SciFit Pro-II Ergometer Target HR:: 122 (97-122) Current RPD:: 3 Maximum Exercise HR:: 112 Resting Blood Pressure: 130/80 Maximum Exercise Blood Pressure: 138/80 Minimum SpO2 with exercise: 92 EKG Type: NSR to ST with rare ectopy Nutrition/Wt Mgmt - Initial Visit Session Number:: 21 Weight Management Admit Height:: 5 ft 5 in Admit Weight:: 125 lb Admit BMI:: 20.7 Nutrition/Wt Mgmt - 30-Day Visit Date of Eval: 05/23/24 Session Number:: 21 Weight Management Height: 5 ft 5 in Weight:: 125 lb BMI: 20.7 Nutrition/Wt Mgmt - 60-Day Visit Date of Eval: 05/23/24 Session Number:: 21 Weight Management Height: 5 ft 5 in Weight:: 125 lb BMI: 20.7 Weight Goals Progress:: Progressing (Pt is currently at a healthy weight. Pt has attended nutrition class and understands the benefits of a low sodium healthy diet.) Nutrition/Wt Mgmt - 90-Day Visit Session Number:: 21 Weight Management Height: 5 ft 5 in Weight:: 125 lb BMI: 20.7 Weight Goals Progress:: Progressing (Pt is currently at a healthy weight. Pt has attended nutrition class and understands the benefits of a low sodium healthy diet.) Nutrition/Wt Mgmt - Final Visit Session Number:: 21 Weight Management Height: 5 ft 5 in Weight:: 125 lb BMI: 20.7 Psychosocial - Initial Assess Visit Session Number:: 21 Problems/Goals History of Emotional Disorders: Depression (bipolar disorder, pt states his depression is under control) Self-reported stressors: Recent Illness Psychosocial Test Tool Used:: Pulmonary QOL and PHQ-9 Questionnaire Referral to Behavioral Health PS - Interventions: Yes: Attend Stress Management Classes Intervention/Plan: See List Interventions/Plan:: Assess stressors,coping strategies & signs of derpression on admission, Instruct/assist pt to develop coping & personal stress Mgt strategies, Refer to Behavioral Health if appropriate, Refer to Physician if appropriate, Instruct patient to recognize signs & symptoms of depression, Instruct patient to recog and Other additional plan/intervention Psychosocial - 30-Day Visit Date of Eval: 05/23/24 Session Number:: 21 Problems/Goals History of Emotional Disorders: Depression (bipolar disorder, pt states his depression is under control) Self-reported stressors: Recent Illness Psychosocial Test Tool Used:: Pulmonary QOL and PHQ-9 Questionnaire Referral to Behavioral Health PS - Interventions: Yes: Attend Stress Management Classes Plan Interventions/Plan:: Assess stressors,coping strategies & signs of derpression on admission, Instruct/assist pt to develop coping & personal stress Mgt strategies, Refer to Behavioral Health if appropriate, Refer to Physician if appropriate, Instruct patient to recognize signs & symptoms of depression, Instruct patient to recog and Other additional plan/intervention Psychosocial - 60-Day Visit Date of Eval: 05/23/24 Session Number:: 21 Problems/Goals History of Emotional Disorders: Depression (bipolar disorder, pt states his depression is under control) Self-reported stressors: Recent Illness Psychosocial Test Tool Used:: Pulmonary QOL and PHQ-9 Questionnaire Referral to Behavioral Health PS - Interventions: Yes: Attend Stress Management Classes Plan Interventions/Plan:: Assess stressors,coping strategies & signs of derpression on admission, Instruct/assist pt to develop coping & personal stress Mgt strategies, Refer to Behavioral Health if appropriate, Refer to Physician if appropriate, Instruct patient to recognize signs & symptoms of depression, Instruct patient to recog and Other additional plan/intervention Psychosocial - 90-Day Visit Session Number:: 21 Problems/Goals History of Emotional Disorders: Depression (bipolar disorder, pt states his depression is under control) Self-reported stressors: Recent Illness Psychosocial Test Tool Used:: Pulmonary QOL and PHQ-9 Questionnaire Referral to Behavioral Health PS - Interventions: Yes: Attend Stress Management Classes Plan Interventions/Plan:: Assess stressors,coping strategies & signs of derpression on admission, Instruct/assist pt to develop coping & personal stress Mgt strategies, Refer to Behavioral Health if appropriate, Refer to Physician if appropriate, Instruct patient to recognize signs & symptoms of depression, Instruct patient to recog and Other additional plan/intervention Psychosocial - Final Assess Visit Session Number:: 21 Problems/Goals History of Emotional Disorders: Depression (bipolar disorder, pt states his depression is under control) Self-reported stressors: Recent Illness Psychosocial Test Tool Used:: Pulmonary QOL and PHQ-9 Questionnaire Referral to Behavioral Health PS - Interventions: Yes: Attend Stress Management Classes Plan Interventions/Plan:: Assess stressors,coping strategies & signs of derpression on admission, Instruct/assist pt to develop coping & personal stress Mgt strategies, Refer to Behavioral Health if appropriate, Refer to Physician if appropriate, Instruct patient to recognize signs & symptoms of depression, Instruct patient to recog and Other additional plan/intervention Oxygen & Oxygen Titration Init Visit Session Number:: 21 Initial Assessment SpO2:: 92 Oxygen & Oxygen Titration 30D Visit Date of Eval: 05/23/24 Session Number:: 21 Reassessment SpO2:: 92 Oxygen & Oxygen Titration 60D Visit Date of Eval: 05/23/24 Session Number:: 21 Reassessment Reassessment- 60 Days: Demonstrate knowledge of O2 Rx at rest & w/exercise, Using O2 as Rx'd, Has home O2 as Rx'd and Uses port O2 as Rx'd SpO2:: 92 Oxygen & Oxygen Titration 90D Visit Date of Eval: 05/23/24 Session Number:: 21 Reassessment SpO2:: 92 Oxygen & Oxygen Titration THUAN Visit Date of Eval: 05/23/24 Session Number:: 21 Reassessment SpO2:: 92 Core Components - Initial Visit Session Number:: 21 Core Components - 30 DAYS Visit Date of Eval: 05/23/24 Session Number:: 21 Core Components - 60 DAYS Visit Date of Eval: 05/23/24 Session Number:: 21 Core Components - 90 DAYS Visit Session Number:: 21 Core Components - Final Visit Session Number:: 21 Patient Health Questionnaire PHQ-9 Screening 60-Day Re-eval Assessment: 1. Little interest or pleasure in doing things: Several days 2. Feeling down, depressed, or hopeless: Several days 3. Trouble falling or staying asleep, or sleeping too much: Several days 4. Feeling tired or having little energy: Several days 5. Poor appetite or overeating: Not at all 6. Feeling bad about yourself -- or that you are a failure or have let yourself or your family down: Not at all 7. Trouble concentrating on things, such as reading the newspaper or watching television: Not at all 8. Moving or speaking so slowly that other people could have noticed. Or the opposite - being so fidgety or restless that you have been moving around a lot more than usual: Not at all 9. Thoughts that you would be better off , or of hurting yourself in some way: Not at all How difficult have these problems made it for you to do your work, take care of things at home, or get along with other people?: Very difficult Total Score: 4 Knowledge Questionaire (BCKQ) Information Information: [place] COPD Knowledge Questionnaire (BCKQ) This questionnaire is designed to find out what you know about your lung problem. It should be completed without help form anyone else. This usually takes between 10 and 20 minutes. Your answers will help us to find out what information you need to help you to understand and manage your lung condition. Jay Jay the [place] which you think is the correct answer. Self-Efficacy 6-Item Scale 60-Day Re-eval Assessment: We would like to know how confident you are in doing certain activities. Please select your confidence level for: Fatigue Select Number: 3 Physical Discomfort or Pain Select Number: 5 Emotional Distress Select Number: 5 Other Symptoms or Health Problems Select Number: 5 Different Tasks and Activities Select Number: 7 Medication Select Number: 4 Total Score:: 4 Nutrition Survey Nutrition Survey Instructions Scoring Instructions
[2024-05-23 10:52] VITALS: BP 130/80; O2SAT 92; BMI 20.7
== END 2024-06-17 23:59 ==
LOC: PR 10:00
PROVIDERS: PCP Internal Medicine
DX: J44.9 Chronic obstructive pulmonary disease, unspecified (principal)
CPT/HCPCS: 97150; 94626

== ENCOUNTER 2024-07-18 10:00 | Outpatient (RCR) | payer MEDICARE, MEDICAID, SELFPAY ==
[2024-05-23 10:52] VITALS: BMI 20.7
[2024-06-18 00:48] VITALS: BP 130/76; BP 140/80; BMI 21.2
--- NOTE | 2024-06-25 10:04 | PCM.PR.TP ---
Exercise - Initial Assessment Visit Session Number:: 30 Physician Prescribed Exercise Modalities: Treadmill, SciFit Stepper and SciFit Pro-II Ergometer Current METSs:: 2.8 Target HR:: 122 (97-122) Current RPD:: 3 Maximum Exercise HR:: 120 Resting Blood Pressure: 116/80 Maximum Exercise Blood Pressure: 140/82 Minimum SpO2 with exercise: 91 EKG Type: SB to sinus arrythmia Nutrition/Wt Mgmt - Initial Visit Session Number:: 30 Weight Management Admit Height:: 5 ft 5 in Admit Weight:: 123 lb 8 oz Admit BMI:: 20.5 Nutrition/Wt Mgmt - 30-Day Visit Date of Eval: 06/25/24 Session Number:: 30 Weight Management Height: 5 ft 5 in Weight:: 123 lb 8 oz BMI: 20.5 Nutrition/Wt Mgmt - 60-Day Visit Session Number:: 30 Weight Management Height: 5 ft 5 in Weight:: 123 lb 8 oz BMI: 20.5 Weight Goals Progress:: Progressing (pt has attended nutrition class. Pt understands the benefits of a healthy low sodium diet.) Nutrition/Wt Mgmt - 90-Day Visit Date of Eval: 06/25/24 Session Number:: 30 Weight Management Height: 5 ft 5 in Weight:: 123 lb 8 oz BMI: 20.5 Weight Goals Progress:: Progressing (pt has attended nutrition class. Pt understands the benefits of a healthy low sodium diet.) Nutrition/Wt Mgmt - Final Visit Session Number:: 30 Weight Management Height: 5 ft 5 in Weight:: 123 lb 8 oz BMI: 20.5 Psychosocial - Initial Assess Visit Session Number:: 30 Problems/Goals History of Emotional Disorders: Depression (bipolar disorder, pt states his depression is under control) Self-reported stressors: Recent Illness Psychosocial Test Tool Used:: Pulmonary QOL and PHQ-9 Questionnaire Referral to Behavioral Health PS - Interventions: Yes: Attend Stress Management Classes Intervention/Plan: See List Interventions/Plan:: Assess stressors,coping strategies & signs of derpression on admission, Instruct/assist pt to develop coping & personal stress Mgt strategies, Refer to Behavioral Health if appropriate, Refer to Physician if appropriate, Instruct patient to recognize signs & symptoms of depression, Instruct patient to recog and Other additional plan/intervention Psychosocial - 30-Day Visit Date of Eval: 06/25/24 Session Number:: 30 Problems/Goals History of Emotional Disorders: Depression (bipolar disorder, pt states his depression is under control) Self-reported stressors: Recent Illness Psychosocial Test Tool Used:: Pulmonary QOL and PHQ-9 Questionnaire Referral to Behavioral Health PS - Interventions: Yes: Attend Stress Management Classes Plan Interventions/Plan:: Assess stressors,coping strategies & signs of derpression on admission, Instruct/assist pt to develop coping & personal stress Mgt strategies, Refer to Behavioral Health if appropriate, Refer to Physician if appropriate, Instruct patient to recognize signs & symptoms of depression, Instruct patient to recog and Other additional plan/intervention Psychosocial - 60-Day Visit Session Number:: 30 Problems/Goals History of Emotional Disorders: Depression (bipolar disorder, pt states his depression is under control) Self-reported stressors: Recent Illness Psychosocial Test Tool Used:: Pulmonary QOL and PHQ-9 Questionnaire Referral to Behavioral Health PS - Interventions: Yes: Attend Stress Management Classes Plan Interventions/Plan:: Assess stressors,coping strategies & signs of derpression on admission, Instruct/assist pt to develop coping & personal stress Mgt strategies, Refer to Behavioral Health if appropriate, Refer to Physician if appropriate, Instruct patient to recognize signs & symptoms of depression, Instruct patient to recog and Other additional plan/intervention Psychosocial - 90-Day Visit Date of Eval: 06/25/24 Session Number:: 30 Problems/Goals History of Emotional Disorders: Depression (bipolar disorder, pt states his depression is under control) Self-reported stressors: Recent Illness Psychosocial Test Tool Used:: Pulmonary QOL and PHQ-9 Questionnaire Referral to Behavioral Health PS - Interventions: Yes: Attend Stress Management Classes Plan Interventions/Plan:: Assess stressors,coping strategies & signs of derpression on admission, Instruct/assist pt to develop coping & personal stress Mgt strategies, Refer to Behavioral Health if appropriate, Refer to Physician if appropriate, Instruct patient to recognize signs & symptoms of depression, Instruct patient to recog and Other additional plan/intervention Psychosocial - Final Assess Visit Session Number:: 30 Problems/Goals History of Emotional Disorders: Depression (bipolar disorder, pt states his depression is under control) Self-reported stressors: Recent Illness Psychosocial Test Tool Used:: Pulmonary QOL and PHQ-9 Questionnaire Referral to Behavioral Health PS - Interventions: Yes: Attend Stress Management Classes Plan Interventions/Plan:: Assess stressors,coping strategies & signs of derpression on admission, Instruct/assist pt to develop coping & personal stress Mgt strategies, Refer to Behavioral Health if appropriate, Refer to Physician if appropriate, Instruct patient to recognize signs & symptoms of depression, Instruct patient to recog and Other additional plan/intervention Oxygen & Oxygen Titration Init Visit Session Number:: 30 Initial Assessment SpO2:: 91 Oxygen & Oxygen Titration 30D Visit Date of Eval: 06/25/24 Session Number:: 30 Reassessment SpO2:: 91 Oxygen & Oxygen Titration 60D Visit Date of Eval: 06/25/24 Session Number:: 30 Reassessment SpO2:: 91 Oxygen & Oxygen Titration 90D Visit Date of Eval: 06/25/24 Session Number:: 30 Reassessment Oxygen & Oxygen Titration 90 days: Oxygen on Discharge, Continuous Home Use, Oxygen w/activity and Oxygen at HS SpO2:: 91 Oxygen & Oxygen Titration THUAN Visit Date of Eval: 06/25/24 Session Number:: 30 Reassessment SpO2:: 91 Core Components - Initial Visit Session Number:: 30 Hypertension BP: 116/80 [employer] Hypertension Guidelines Blood Pressure: 140/82 Outcomes/Goals: Able to verbalize/achieve optimal blood pressure <130/80, Incorporates diet changes & exercise for blood pressure control by DC and Other additional outcomes/goals Tobacco - Initial Assessment Tobacco Program Goals Tobacco Use: Non-smoker Do you use smokeless tobacco?: No Smoking Cessation Referral:: No Individual Education/Counseling:: No Education Schedule Given:: Yes Gave Education Materials For:: Tobacco Triggers, Pulmonary Disease, Risk Factors, Breathing Techniques, Medical Compliance, Pulmonary A&P, Exacerbation Signs & Symptoms and Stress & Relaxation Diabetes Diabetes:: No Core Components - 30 DAYS Visit Date of Eval: 06/25/24 Session Number:: 30 Hypertension Resting Blood Pressure:: 116/80 [employer] Hypertension Guidelines Peak Exercise Blood Pressure:: 140/82 Outcomes/Goals: Able to verbalize/achieve optimal blood pressure <130/80, Incorporates diet changes & exercise for blood pressure control by DC and Other additional outcomes/goals Interventions/plan: Instruct on optimal blood pressure, hypertension & medications, Instruct on effects of sodium, alcohol, stress, exercise &hypertension and Other additional plan/interventions 30 day Reassessments:: Met Reassessment Notes & Comments:: pt's BP's are within normal limits on most days Tobacco - 30-Day Tobacco Program Goals Tobacco Use: Non-smoker Do you use smokeless tobacco?: No Smoking Cessation Referral:: No Education Schedule Given:: Yes Gave Education Materials For:: Tobacco Triggers, Pulmonary Disease, Risk Factors, Breathing Techniques, Medical Compliance, Pulmonary A&P, Exacerbation Signs & Symptoms and Stress & Relaxation Exacerbation Mgmt & Airway Clearance Bronchial Hygiene Plan: Yes: Pt demonstrates correctly for effective cough, Yes: Pt demo correct for CPT, Yes: Pt demo correct for device, Yes: Pt demo correct for NS nasal spray, Yes: Pt demo correct for sputum management, Yes: Pt demo correct for improved hydration, Yes: Pt demo correct for hand hygiene, Yes: Pt demo correct for evalute sputum, Yes: Pt demo correct for verbalize when to call MD and Yes: Pt demo correct for cleaning of respiratory equipment Medication Medication reassessment: Yes: Pt demonstrates correct technique timing for MDI, Yes: Pt demonstrates correct technique timing for DPI, Yes: Pt demonstrates correct technique timing for NEB and Yes: Pt demonstrates correct technique timing for spacer Diabetes Diabetes:: No Core Components - 60 DAYS Visit Session Number:: 30 Hypertension Resting Blood Pressure:: 116/80 [employer] Hypertension Guidelines Peak Exercise Blood Pressure:: 140/82 Outcomes/Goals: Able to verbalize/achieve optimal blood pressure <130/80, Incorporates diet changes & exercise for blood pressure control by DC and Other additional outcomes/goals Interventions/plan: Instruct on optimal blood pressure, hypertension & medications, Instruct on effects of sodium, alcohol, stress, exercise &hypertension and Other additional plan/interventions 60 day Reassessments:: Met Reassessment Notes & Comments:: pt's BP's are within normal limits on most days Tobacco - 60-Day Tobacco Program Goals Tobacco Use: Non-smoker Do you use smokeless tobacco?: No Smoking Cessation Referral:: No Individual Education/Counseling:: No Education Schedule Given:: Yes Gave Education Materials For:: Tobacco Triggers, Pulmonary Disease, Risk Factors, Breathing Techniques, Medical Compliance, Pulmonary A&P, Exacerbation Signs & Symptoms and Stress & Relaxation Exacerbation Mgmt & Airway Clearance Bronchial Hygiene Plan: Yes: Pt demonstrates correctly for effective cough, Yes: Pt demo correct for CPT, Yes: Pt demo correct for device, Yes: Pt demo correct for NS nasal spray, Yes: Pt demo correct for sputum management, Yes: Pt demo correct for improved hydration, Yes: Pt demo correct for hand hygiene, Yes: Pt demo correct for evalute sputum, Yes: Pt demo correct for verbalize when to call MD and Yes: Pt demo correct for cleaning of respiratory equipment Medication Medication reassessment: Yes: Pt demonstrates correct technique timing for MDI, Yes: Pt demonstrates correct technique timing for DPI, Yes: Pt demonstrates correct technique timing for NEB and Yes: Pt demonstrates correct technique timing for spacer Diabetes Diabetes:: No Core Components - 90 DAYS Visit Date of Eval: 06/25/24 Session Number:: 30 Hypertension Resting Blood Pressure:: 116/80 [employer] Hypertension Guidelines Peak Exercise Blood Pressure:: 140/82 Outcomes/Goals: Able to verbalize/achieve optimal blood pressure <130/80, Incorporates diet changes & exercise for blood pressure control by DC and Other additional outcomes/goals Interventions/plan: Instruct on optimal blood pressure, hypertension & medications, Instruct on effects of sodium, alcohol, stress, exercise &hypertension and Other additional plan/interventions 90 day Reassessments:: Met Reassessment Notes & Comments:: pt's BP's are within normal limits on most days Tobacco - 90-Day Tobacco Program Goals Tobacco Use: Non-smoker Do you use smokeless tobacco?: No Smoking Cessation Referral:: No Individual Education/Counseling:: No Education Schedule Given:: Yes Gave Education Materials For:: Tobacco Triggers, Pulmonary Disease, Risk Factors, Breathing Techniques, Medical Compliance, Pulmonary A&P, Exacerbation Signs & Symptoms and Stress & Relaxation Exacerbation Mgmt & Airway Clearance Reassessment: Demonstrates knowledge of O2 Rx at rest, Demonstrates knowledge of O2 Rx with exercise, Using O2 as prescribed, Has home O2 as prescribed and Uses port O2 as prescribed Bronchial Hygiene Plan: Yes: Pt demonstrates correctly for effective cough, Yes: Pt demo correct for CPT, Yes: Pt demo correct for device, Yes: Pt demo correct for NS nasal spray, Yes: Pt demo correct for sputum management, Yes: Pt demo correct for improved hydration, Yes: Pt demo correct for hand hygiene, Yes: Pt demo correct for evalute sputum, Yes: Pt demo correct for verbalize when to call MD and Yes: Pt demo correct for cleaning of respiratory equipment Medication Medication list reviewed:: Yes Taking medications 100% of the time:: Met Medication reassessment: Yes: Pt demonstrates correct technique timing for MDI, Yes: Pt demonstrates correct technique timing for DPI, Yes: Pt demonstrates correct technique timing for NEB and Yes: Pt demonstrates correct technique timing for spacer Diabetes Diabetes:: No Core Components - Final Visit Session Number:: 30 Hypertension Resting Blood Pressure:: 116/80 [employer] Hypertension Guidelines Peak Exercise Blood Pressure:: 140/82 Outcomes/Goals: Able to verbalize/achieve optimal blood pressure <130/80, Incorporates diet changes & exercise for blood pressure control by DC and Other additional outcomes/goals Tobacco - Final Tobacco Program Goals Tobacco Use: Non-smoker Do you use smokeless tobacco?: No Smoking Cessation Referral:: No Individual Education/Counseling:: No Education Schedule Given:: Yes Exacerbation Mgmt & Airway Clearance Bronchial Hygiene Plan: Yes: Pt demonstrates correctly for effective cough, Yes: Pt demo correct for CPT, Yes: Pt demo correct for device, Yes: Pt demo correct for NS nasal spray, Yes: Pt demo correct for sputum management, Yes: Pt demo correct for improved hydration, Yes: Pt demo correct for hand hygiene, Yes: Pt demo correct for evalute sputum, Yes: Pt demo correct for verbalize when to call MD and Yes: Pt demo correct for cleaning of respiratory equipment Medication Medication reassessment: Yes: Pt demonstrates correct technique timing for MDI, Yes: Pt demonstrates correct technique timing for DPI, Yes: Pt demonstrates correct technique timing for NEB and Yes: Pt demonstrates correct technique timing for spacer Diabetes Diabetes:: No Patient Health Questionnaire PHQ-9 Screening 90-Day Re-eval Assessment: 1. Little interest or pleasure in doing things: Several days 2. Feeling down, depressed, or hopeless: Several days 3. Trouble falling or staying asleep, or sleeping too much: Several days 4. Feeling tired or having little energy: Several days 5. Poor appetite or overeating: Not at all 6. Feeling bad about yourself -- or that you are a failure or have let yourself or your family down: Not at all 7. Trouble concentrating on things, such as reading the newspaper or watching television: Not at all 8. Moving or speaking so slowly that other people could have noticed. Or the opposite - being so fidgety or restless that you have been moving around a lot more than usual: Not at all 9. Thoughts that you would be better off , or of hurting yourself in some way: Not at all How difficult have these problems made it for you to do your work, take care of things at home, or get along with other people?: Very difficult Total Score: 4 Knowledge Questionaire (BCKQ) Information Information: [facility] COPD Knowledge Questionnaire (BCKQ) This questionnaire is designed to find out what you know about your lung problem. It should be completed without help form anyone else. This usually takes between 10 and 20 minutes. Your answers will help us to find out what information you need to help you to understand and manage your lung condition. Jay Jay the emmonak which you think is the correct answer. Self-Efficacy 6-Item Scale 90-Day Re-eval Assessment: We would like to know how confident you are in doing certain activities. Please select your confidence level for: Fatigue Select Number: 3 Physical Discomfort or Pain Select Number: 5 Emotional Distress Select Number: 5 Other Symptoms or Health Problems Select Number: 5 Different Tasks and Activities Select Number: 7 Medication Select Number: 4 Total Score:: 4 Nutrition Survey Nutrition Survey Instructions Scoring Instructions
[2024-06-25 10:10] VITALS: BP 116/80; O2SAT 91
[2024-06-25 10:22] VITALS: BP 116/80; BP 140/82; BMI 20.5
== END 2024-07-18 23:59 ==
LOC: PR 10:00
PROVIDERS: PCP Internal Medicine
DX: J44.9 Chronic obstructive pulmonary disease, unspecified (principal)
CPT/HCPCS: 97150; 94626

== ENCOUNTER 2024-07-23 13:48 | Outpatient (RCR) | payer MEDICARE, MEDICAID, SELFPAY ==
[2024-06-25 10:22] VITALS: BMI 20.5
== END 2024-08-15 23:59 ==
LOC: PR 13:48
PROVIDERS: PCP Internal Medicine
DX: J44.9 Chronic obstructive pulmonary disease, unspecified (principal)
CPT/HCPCS: 97150; 94626

== ENCOUNTER 2024-09-11 08:00 | Outpatient (RCR) | payer SELFPAY ==
[2024-06-25 10:22] VITALS: BMI 20.5
== END 2024-09-15 23:59 ==
LOC: PR 08:00
PROVIDERS: PCP Internal Medicine
DX: Z00.00 Encounter for general adult medical examination without abnormal findings (principal)

== ENCOUNTER 2024-10-14 08:00 | Outpatient (RCR) | payer SELFPAY ==
[2024-06-25 10:22] VITALS: BMI 20.5
== END 2024-10-15 23:59 ==
LOC: PR 08:00
PROVIDERS: PCP Internal Medicine
DX: Z00.00 Encounter for general adult medical examination without abnormal findings (principal)

== ENCOUNTER 2024-10-23 08:00 | Outpatient (RCR) | payer SELFPAY ==
[2024-06-25 10:22] VITALS: BMI 20.5
== END 2024-11-15 23:59 ==
LOC: PR 08:00
PROVIDERS: PCP Internal Medicine
DX: Z00.00 Encounter for general adult medical examination without abnormal findings (principal)

== ENCOUNTER 2024-11-18 06:13 | Outpatient (RCR) | payer SELFPAY ==
[2024-06-25 10:22] VITALS: BMI 20.5
== END 2024-12-15 23:59 ==
LOC: PR 06:13
PROVIDERS: PCP Internal Medicine
DX: Z00.00 Encounter for general adult medical examination without abnormal findings (principal)

== ENCOUNTER 2024-12-16 06:37 | Outpatient (RCR) | payer SELFPAY ==
[2024-06-25 10:22] VITALS: BMI 20.5
== END 2025-01-15 23:59 ==
LOC: PR 06:37
PROVIDERS: PCP Internal Medicine
DX: Z00.00 Encounter for general adult medical examination without abnormal findings (principal)

== ENCOUNTER 2025-02-12 08:00 | Outpatient (RCR) | payer SELFPAY ==
[2024-06-25 10:22] VITALS: BMI 20.5
== END 2025-02-15 23:59 ==
LOC: PR 08:00
PROVIDERS: PCP Internal Medicine
DX: Z00.00 Encounter for general adult medical examination without abnormal findings (principal)

== ENCOUNTER 2025-03-17 08:00 | Outpatient (RCR) | payer SELFPAY ==
[2024-06-25 10:22] VITALS: BMI 20.5
== END 2025-03-17 23:59 ==
LOC: PR 08:00
PROVIDERS: PCP Internal Medicine
DX: Z00.00 Encounter for general adult medical examination without abnormal findings (principal)

== ENCOUNTER 2025-04-16 08:00 | Outpatient (RCR) | payer SELFPAY ==
[2024-06-25 10:22] VITALS: BMI 20.5
== END 2025-04-17 23:59 ==
LOC: PR 08:00
PROVIDERS: PCP Internal Medicine
DX: Z00.00 Encounter for general adult medical examination without abnormal findings (principal)

== ENCOUNTER 2025-05-12 08:00 | Outpatient (RCR) | payer SELFPAY ==
[2024-06-25 10:22] VITALS: BMI 20.5
== END 2025-05-17 23:59 ==
LOC: PR 08:00
PROVIDERS: PCP Internal Medicine
DX: Z00.00 Encounter for general adult medical examination without abnormal findings (principal)

== ENCOUNTER 2025-06-16 08:00 | Outpatient (RCR) | payer SELFPAY ==
[2024-06-25 10:22] VITALS: BMI 20.5
== END 2025-06-17 23:59 ==
LOC: PR 08:00
PROVIDERS: PCP Internal Medicine
DX: Z00.00 Encounter for general adult medical examination without abnormal findings (principal)